=== PATIENT | male | born 1960 | race Caucasian/White ===

== ENCOUNTER 2019-06-02 11:49 | Emergency (ER) | payer SELFPAY ==
--- OUTSIDE RECORDS SUMMARY | 2019-06-02 11:52 | XMS REPORT | Summary of Care ---
:1960 Author Organization [facility] [place] Address [address] [place] [address]- Encounter HQ Encntr_yudith(FIN) [id number] Date(s): 10/26/17 - 10/26/17 [facility] [place] [address] [place] [address]- [phone] Discharge Disposition: Home or Self Care Attending Physician: Bonnie Walsh MD Vital Signs Most recent to oldest [Reference Range]: 1 Height 162.56 cm (10/26/17 9:25 AM) Blood Pressure [90-140/60-90 mmHg] 143/77 mmHg *HI* (10/26/17 9:25 AM) Weight 77.273 kg (10/26/17 9:25 AM) Body Mass Index 29.24 m2 (10/26/17 9:25 AM) Problem List Condition Effective Dates Status Health Status Informant Hyperlipidemia(Confirmed) Active Allergies, Adverse Reactions, Alerts Substance Reaction Severity Status NKDA Active Medications No data available for this section Results No data available for this section Immunizations No data available for this section Procedures Procedure Date Related Diagnosis Body Site Laparoscopic repair of hernia Social History Social History Type Response Smoking Status Former smoker; Exposed at work; Cigarette Smoking Last 365 Days No; Reg Smoking Cessation Counseling No Assessment and Plan No data available for this section
--- OUTSIDE RECORDS SUMMARY | 2019-06-02 11:52 | XMS REPORT | Continuity of Care Document ---
:1960 Author Organization [employer] Care Team Providers Name Role Phone [employer] Unavailable Unavailable Problems Problem Status Onset Classification Date Comments Source Date Reported Hyperlipidemia Active Problem 12/31/2018 [facility] Medications Medication Details Route Status Patient Ordering Order Source Instructions Provider Date Mupirocin 0.02 1 appl, No Longer MH MG/MG Topical TOP, BID, Active 018 Medical Ointment Apply to Group [Bactroban] affected area(s), X 7 day, # 22 gm, 0 Refill(s), Pharmacy: [facility] baclofen 20 mg 20 mg=1 Active MH oral tablet tab, PO, 018 Medical BID, PRN Group Spasms, # 60 tab, 0 Refill(s), Pharmacy: [facility] triamcinolone 80 mg, Inactive ACETONIDE 40 Route: IM, 018 Medical mg/mL injectable ONCE, Group suspension Dosing Weight 78.693, kg, Start date: 01/24/18 14:54:00 CDT, Stop date: 01/24/18 14:54:00 CDT rosuvastatin 5 5 mg=1 tab, Active MH mg oral tablet PO, 018 Medical Bedtime, # Group 30 tab, 7 Refill(s), Pharmacy: [facility] aspirin 81 mg 81 mg=1 Active MH tablet, enteric tab, PO, 017 Medical coated Daily, # 90 Group tab, 3 Refill(s) rosuvastatin 5 5 mg=1 tab, Active MH mg oral tablet PO, 017 Medical Bedtime, # Group 30 tab, 0 Refill(s) Allergies, Adverse Reactions, Alerts Substance Category Reaction Severity Reaction Status Date Comments Source type Reported menthol Assertion Drug Active skin rash MH topical<sup allergy Medical >1</sup> Group Immunizations No Data Provided for This Section Results No Data Provided for This Section Pathology Reports No Data Provided for This Section Diagnostic Reports No Data Provided for This Section Consultation Notes No Data Provided for This Section Discharge Summaries No Data Provided for This Section History and Physicals No Data Provided for This Section Vital Signs Vital Sign Value Date Comments Source Systolic (mm Hg) 154 06/13/2018 Medical Group Diastolic (mm Hg) 79 06/13/2018 Medical Group Heart Rate 60 06/13/2018 Medical Group Weight 78.807 06/13/2018 Medical Group BMI Calculated 29.82 06/13/2018 Medical Group Height 162.56 cm 06/13/2018 Medical Group Temperature Oral (F) 96.5 F 06/13/2018 Medical Group Weight 78.693 01/24/2018 Medical Group Systolic (mm Hg) 157 01/24/2018 Medical Group Diastolic (mm Hg) 80 01/24/2018 Medical Group Temperature Oral (F) 98.6 F 01/24/2018 Medical Group Heart Rate 69 01/24/2018 Medical Group Height 162.56 cm 10/26/2017 Medical Group Systolic (mm Hg) 143 10/26/2017 Medical Group Diastolic (mm Hg) 77 10/26/2017 Medical Group BMI Calculated 29.24 10/26/2017 Medical Group Weight 77.273 10/26/2017 Medical Group Systolic (mm Hg) 140 10/10/2017 Medical Group Diastolic (mm Hg) 82 10/10/2017 Medical Group Respitory Rate 17 10/10/2017 Medical Group Temperature Oral (F) 97.9 F 10/10/2017 Medical Group BMI Calculated 28.96 10/10/2017 Medical Group Weight 76.534 10/10/2017 Medical Group Heart Rate 80 10/10/2017 Medical Group Height 162.56 cm 10/10/2017 Medical Group Systolic (mm Hg) 164 10/10/2017 Medical Group Diastolic (mm Hg) 80 10/10/2017 Medical Group Encounters Location Location Encounter Encounter Reason Attending ADM DC Status Source Details Type Number For Provider Date Date Visit Outpatient [id number] ROXANNA 10/10 [facility] Outpatient [id number] Freddieecia 10/10 10/11 [facility] [place] Outpatient [id number] ABDULAZIZ 10/[address] [facility] ALENA [facility] Outpatient [id number] Jerecia 10/26 10/27 [facility] /2016 Medical ology Group Tariq [facility] Outside [id number] 12/01 12/03 [facility] /2017 Medical ology [employer] [facility] [place] Outpatient [id number] ART 01/24 [facility] Daryl [facility] Outpatient [id number] Art 01/24 01/25 Primary [facility] /2017 [facility] [place] Outpatient [id number] DOC 06/13 [facility] Outpatient [id number] Doc 06/13 06/14 Primary [place] /2017 [facility] [place] Procedures Procedure Code Date Perfomer Comments Source Colonoscopy [id number] 11/14/2016 Medical Group Laparoscopic repair [id number] Medical of hernia Group Assessment and Plan No Data Provided for This Section Plan of Care No Data Provided for This Section Social History Social History Date Source Social History TypeResponse 06/13/2018 Medical Group Smoking Status Former smoker; Exposed at work; Cigarette Smoking Last 365 Days No; Reg Smoking Cessation Counseling No entered on: 06/13/18 Family History No Data Provided for This Section Advance Directives No Data Provided for This Section Functional Status No Data Provided for This Section
--- OUTSIDE RECORDS SUMMARY | 2019-06-02 11:52 | XMS REPORT | Summary of Care ---
:1960 Author Organization [facility] Gastroenterology [place] Address [address] [address] Encounter HQ Encntr_alias(FIN) [id number] Date(s): 12/01/17 - 12/02/17 [facility] G[facility] [place] [address] [address] [phone] Vital Signs No data available for this section Problem List Condition Effective Dates Status Health Status Informant Hyperlipidemia(Confirmed) Active Allergies, Adverse Reactions, Alerts Substance Reaction Severity Status menthol topical1 Active NKDA Active 1skin rash Medications No data available for this section Results No data available for this section Immunizations No data available for this section Procedures Procedure Date Related Diagnosis Body Site Status Laparoscopic repair of hernia Completed Social History Social History Type Response Smoking Status Former smoker; Exposed at work; Cigarette Smoking Last 365 Days No; Reg Smoking Cessation Counseling No entered on: 01/24/18 Assessment and Plan No data available for this section
--- OUTSIDE RECORDS SUMMARY | 2019-06-02 11:52 | XMS REPORT | Summary of Care ---
:1960 Author Organization [facility] Address [address] [place] [address]- Encounter HQ [place](FIN) [id number] Date(s): 01/24/18 - 01/24/[address] [address] [phone] Discharge Disposition: Home or Self Care Attending Physician: Bernard Gaines MD Vital Signs Most recent to oldest [Reference Range]: 1 Temperature Oral [96.4-99.1 DegF] 98.6 DegF (01/24/18 2:40 PM) Blood Pressure [90-140/60-90 mmHg] 157/80 mmHg *HI* (01/24/18 2:40 PM) Peripheral Pulse Rate [60-100 bpm] 69 bpm (01/24/18 2:40 PM) Weight 78.693 kg (01/24/18 2:40 PM) Problem List Condition Effective Dates Status Health Status Informant Hyperlipidemia(Confirmed) Active Allergies, Adverse Reactions, Alerts Substance Reaction Severity Status menthol topical1 Active NKDA Active 1skin rash Medications rosuvastatin 5 mg oral tablet 5 mg=1 tab, PO, Bedtime, # 30 tab, 7 Refill(s), Pharmacy: [facility] Start Date: 01/24/18 Stop Date: 09/21/18 Status: Orderedtriamcinolone ACETONIDE 40 mg/mL injectable suspension 80 mg, Route: IM, ONCE, Dosing Weight 78.693, kg, Start date: 01/24/18 14:54:00 CDT, Stop date: 01/24/18 14:54:00 CDT Start Date: 01/24/18 Stop Date: 01/24/18 Status: Completed Results No data available for this section [...]
--- OUTSIDE RECORDS SUMMARY | 2019-06-02 11:52 | XMS REPORT | Summary of Care ---
:1960 Author Organization [facility] Address [address] [place] [address]- Encounter HQ Uriel_yudith(FIN) [id number] Date(s): 06/13/18 - 06/13/[address] [address] [phone] Discharge Disposition: Home or Self Care Attending Physician: Emiliana Benitez MSN, RN, SYSTEMS ADMINISTRATOR-C Vital Signs Most recent to oldest [Reference Range]: 1 Height 162.56 cm (06/13/18 7:04 AM) Temperature Oral [96.4-99.1 DegF] 96.5 DegF (06/13/18 7:04 AM) Blood Pressure [90-140/60-90 mmHg] 154/79 mmHg *HI* (06/13/18 7:04 AM) Peripheral Pulse Rate [60-100 bpm] 60 bpm (06/13/18 7:04 AM) Weight 78.807 kg (06/13/18 7:04 AM) Body Mass Index 29.82 m2 (06/13/18 7:04 AM) Problem List Condition Effective Dates Status Health Status Informant Hyperlipidemia(Confirmed) Active Allergies, Adverse Reactions, Alerts Substance Reaction Severity Status menthol topical1 Active NKDA Active 1skin rash Medications baclofen 20 mg oral tablet 20 mg=1 tab, PO, BID, PRN Spasms, # 60 tab, 0 Refill(s), Pharmacy: [facility] Start Date: 06/13/18 Status: OrderedBactroban 2% topical ointment 1 appl, TOP, BID, Apply to affected area(s), X 7 day, # 22 gm, 0 Refill(s), Pharmacy: [facility] Start Date: 06/13/18 Stop Date: 06/20/18 Status: Completed Results No data available for this section Immunizations No data available for this section Procedures Procedure Date Related Diagnosis Body Site Status Colonoscopy 2016 Completed Laparoscopic repair of hernia Completed Social History Social History Type Response Smoking Status Former smoker; Exposed at work; Cigarette Smoking Last 365 Days No; Reg Smoking Cessation Counseling No entered on: 06/13/18 Assessment and Plan No data available for this section
--- OUTSIDE RECORDS SUMMARY | 2019-06-02 11:52 | XMS REPORT | Summary of Care ---
:1960 Author Organization [facility] Address [address] [place] [address]- Encounter HQ Malloryr_yudith(FIN) [id number] Date(s): 10/10/17 - 10/10/[address] [address]- [phone] Discharge Disposition: Home or Self Care Attending Physician: Bonnie Walsh MD Vital Signs Most recent to oldest [Reference Range]: 1 2 Height 162.56 cm (10/10/17 7:37 AM) Temperature Oral [96.4-99.1 DegF] 97.9 DegF (10/10/17 7:37 AM) Blood Pressure [90-140/60-90 mmHg] 140/82 mmHg 164/80 mmHg (10/10/17 8:00 AM) *HI* (10/10/17 7:37 AM) Respiratory Rate [14-20 BRMIN] 17 BRMIN (10/10/17 7:37 AM) Peripheral Pulse Rate [60-100 bpm] 80 bpm (10/10/17 7:37 AM) Weight 76.534 kg (10/10/17 7:37 AM) Body Mass Index 28.96 m2 (10/10/17 7:37 AM) Problem List Condition Effective Dates Status Health Status Informant Hyperlipidemia(Confirmed) Active Allergies, Adverse Reactions, Alerts Substance Reaction Severity Status NKDA Active Medications aspirin 81 mg tablet, enteric coated 81 mg=1 tab, PO, Daily, # 90 tab, 3 Refill(s) Start Date: 10/10/17 Status: Orderedrosuvastatin 5 mg oral tablet 5 mg=1 tab, PO, Bedtime, # 30 tab, 0 Refill(s) Start Date: 10/10/17 Status: Ordered Results No data available for this section [...]
--- OUTSIDE RECORDS SUMMARY | 2019-06-02 11:53 | XMS REPORT ---
:1960 Author [facility] Address [address] [place] [address] [address] [place] [address] Care Team Providers Name Role Phone DR MARCO A SIMEON Unavailable Unavailable DR BRENDON WAKEFIELD Unavailable Unavailable Problems This patient has no known problems. Allergies, Adverse Reactions, Alerts This patient has no known allergies or adverse reactions. Medications This patient has no known medications. Encounters Start End Encounter Admission Attending Care Care Encounter Date/Time Date/Time Type Type Clinicians Facility Department ID 2017-09-14 2017-09-14 Outpatient EZIO REA CARDIO [id number] 11:37:00 23:59:00 MARCO A Results Test Description Test Time Test Comments Text Results Atomic Results Result Comments CARDIAC PROFILE 2017-08-22 11:56:00 Test Item Value Reference Range Comments TROPONIN I (test code=A84) 0.038 ng/mL 0.000-0.045 CKMB (test code=A49) 1.2 ng/mL <=3.6 CPK (test code=32A) 86 IU/L 39-308 LIPID [id number] 11:23:00 Test Item Value Reference Range Comments CHOLESTROL (test code=44A) 183 mg/dL 140-200 TRIGLYCERI (test code=42B) 293 mg/dL <=149 HDL (test code=83D) 31.0 mg/dL 40.0-60.0 LDL (test code=34B) 111 mg/dL <=99 CHL/HDL (test code=CHR) 5.9 0.0-3.4 CARDIAC [id number] 08:30:00 Test Item Value Reference Range Comments TROPONIN I (test code=A84) 0.041 ng/mL 0.000-0.045 CKMB (test code=A49) <1.0 ng/mL <=3.6 CPK (test code=32A) 89 IU/L 39-308 CBC (INCLUDES AUTOMATED DIFFERENTIAL)2017-08-22 06:53:00 Test Item Value Reference Range Comments WBC (test code=WBC) 7.3 10\S\3/uL 4.5-11.0 RBC (test code=RBC) 4.78 10\S\6/uL 4.20-5.60 HGB (test code=HBG) 14.4 g/dL 14.0-18.0 HCT (test code=HCT) 41.6 % 35.0-46.0 MCV (test code=MCV) 87.0 fL 80.0-94.0 MCH (test code=MCH) 30.1 pg 27.0-31.0 MCHC (test code=MCHC) 34.6 g/dL 32.0-36.0 RDW (test code=RDW) 13.0 % 11.5-14.5 PLT (test code=PLT) 189 10\S\3/uL 130-400 MPV (test code=MPV) 9.4 fL 9.4-12.4 NEUTROP # (test code=NE#) 3.2 10\S\3/uL 2.0-8.0 LYMPH # (test code=LY#) 2.8 10\S\3/uL 1.2-4.0 MONOCYTE # (test code=MO#) 0.5 10\S\3/uL 0.0-1.1 EOSINOPH # (test code=EO#) 0.6 10\S\3/uL 0.0-0.7 BASOPHIL # (test code=BA#) 0.1 10\S\3/uL 0.0-0.3 IG # (test code=IG#) 0.02 10\S\3/uL 0.00-0.06 NRBC # (test code=NRBC#) 0.00 10\S\3/uL 0.00-0.01 NEUTROPH % (test code=NE%) 44.4 % 35.0-73.0 LYMPH % (test code=LY%) 38.6 % 20.0-55.0 MONO % (test code=MO%) 7.4 % 2.5-10.0 EOSINOPH % (test code=EO%) 8.3 % 0.0-5.0 BASOPHIL % (test code=BA%) 1.0 % 0.0-2.0 IG % (test code=IG%) 0.3 % 0.0-0.8 NRBC% (test code=NRBC%) 0.0 % 0.0-0.2 MANDIFF (test code=MDIFF) NO NO RBC MORPH (test code=RBCMOR) NORMAL BASIC METABOLIC [id number] 06:43:00 Test Item Value Reference Range Comments GLUCOSE (test code=06D) 95 mg/dL 75-100 SODIUM (test code=01A) 142 mmol/L 136-145 POTASSIUM (test code=01B) 3.7 mmol/L 3.6-5.1 CHLORIDE (test code=04A) 107 mmol/L 98-107 CO2 (test code=02A) 27 mmol/L 22-32 ANION GAP (test code=ANG) 11.7 mmol/L BUN (test code=05D) 20 mg/dL 7-18 CREATININE (test code=03E) 1.0 mg/dL 0.7-1.3 BUN/CREA (test code=BCR) 21 12-20 CALCIUM (test code=09D) 8.9 mg/dL 8.3-9.5 CT PE [id number] 22:53:31Exam: CT thorax PE protocol.Location: [id number] : CPTechnique: Enhanced spiral slices were taken fromthe apices of the lungs, through the upper abdomen utilizing a pulmonary embolism protocol. Multiplanarreformations were performed. 100cc of Omnipaque were used. 1 or more of thefollowing radiation dosereduction techniques was used: automated exposurecontrol, adjustment of mA and/or KV according to patient size, and/ orutilization of iterative reconstruction technique.Findings:No filling defects are seen in the main pulmonary arteries. The pulmonaryvasculature is normal. No pulmonary venous congestion or arterial hypertensionis seen.The lungs are clear. No infiltration or effusion is seen. No mass or nodule isseen.The mediastinum and the pulmonary kaleigh are normal. No lymphadenopathy ispresent. The heart size is normal.No pericardial effusion is seen.The visualized upper abdominal organs are unremarkable.Impression:1. Negative for pulmonary embolism.2. No acute disease.BRAIN NATRIURETIC [id number] 21:58:00 Test Item Value Reference Range Comments proBNP (test code=PBNP) 14 pg/mL 0-125 COMPREHENSIVE METABOLIC [id number] 21:53:00 Test Item Value Reference Range Comments GLUCOSE (test code=06D) 128 mg/dL 75-100 SODIUM (test code=01A) 141 mmol/L 136-145 POTASSIUM (test code=01B) 3.9 mmol/L 3.6-5.1 CHLORIDE (test code=04A) 106 mmol/L 98-107 CO2 (test code=02A) 27 mmol/L 22-32 ANION GAP (test code=ANG) 11.9 mmol/L BUN (test code=05D) 20 mg/dL 7-18 CREATININE (test code=03E) 1.0 mg/dL 0.7-1.3 BUN/CREA (test code=BCR) 19 12-20 CALCIUM (test code=09D) 8.2 mg/dL 8.3-9.5 BILI TOTAL (test code=11A) 0.3 mg/dL 0.2-1.0 PROTEIN (test code=07D) 6.9 g/dL 6.4-8.2 ALBUMIN (test code=08D) 3.3 g/dL 3.5-4.8 GLOBULIN (test code=GLB) 3.6 g/dL 1.5-3.8 ALB/GLOB (test code=AGRR) 0.9 1.0-2.6 ALK PHOS (test code=35A) 68 IU/L 42-121 AST (test code=30A) 19 IU/L <=42 ALT (test code=31A) 34 IU/L <=78 CARDIAC [id number] 21:53:00 Test Item Value Reference Range Comments TROPONIN I (test code=A84) 0.046 ng/mL 0.000-0.045 CKMB (test code=A49) 1.3 ng/mL <=3.6 CPK (test code=32A) 115 IU/L 39-308 PRO TIME AND [id number] 21:49:00 Test Item Value Reference Range Comments PT (test code=TT) 11.8 s 9.8-13.6 INR (test code=INR) 1.1 INRH (test code=INRH) SUGGESTED THERAPEUTIC RANGE FOR INR: 2.5 - 3.5 For Patients with Prosthetic Valves or Patients with recurrent Thromboembolic Events 2.0 - 3.0 For Most Other Applications PTT (test code=PTT) 29.1 s 20.2-38.0 PTTH (test code=PTTH) To monitor the effectiveness of heparin, we offer the Anti-Xa (Heparin Assay). It can be used for either unfractionated or LMW Heparin. Order Code is ANTI-XA [id number] 21:49:00 Test Item Value Reference Range Comments D-DIMER (test code=DDI) 458 ng/mL D-DU 0-234 D-DIMER COMMENT (test *Level to rule out DVT or PE: code=DDCOM) <235 ng/mL D-DU* XR CHEST 1 VIEW [id number] 21:36:09Exam: Chest portable erectLocation: [id number]: CPComparison: None.Findings:The lungs are clear. No infiltrate or effusion is seen. The pulmonaryvasculature is normal. The heart size is normal. The mediastinal silhouette isunremarkable. The bony thorax is intact.Impression: No acute disease.CBC (INCLUDES AUTOMATED DIFFERENTIAL)2017-08-21 21:34:00 Test Item Value Reference Range Comments WBC (test code=WBC) 8.8 10\S\3/uL 4.5-11.0 RBC (test code=RBC) 4.73 10\S\6/uL 4.20-5.60 HGB (test code=HBG) 14.8 g/dL 14.0-18.0 HCT (test code=HCT) 41.2 % 35.0-46.0 MCV (test code=MCV) 87.1 fL 80.0-94.0 MCH (test code=MCH) 31.3 pg 27.0-31.0 MCHC (test code=MCHC) 35.9 g/dL 32.0-36.0 RDW (test code=RDW) 12.9 % 11.5-14.5 PLT (test code=PLT) 211 10\S\3/uL 130-400 MPV (test code=MPV) 9.3 fL 9.4-12.4 NEUTROP # (test code=NE#) 4.4 10\S\3/uL 2.0-8.0 LYMPH # (test code=LY#) 3.1 10\S\3/uL 1.2-4.0 MONOCYTE # (test code=MO#) 0.5 10\S\3/uL 0.0-1.1 EOSINOPH # (test code=EO#) 0.6 10\S\3/uL 0.0-0.7 BASOPHIL # (test code=BA#) 0.1 10\S\3/uL 0.0-0.3 IG # (test code=IG#) 0.02 10\S\3/uL 0.00-0.06 NRBC # (test code=NRBC#) 0.00 10\S\3/uL 0.00-0.01 NEUTROPH % (test code=NE%) 50.3 % 35.0-73.0 LYMPH % (test code=LY%) 34.9 % 20.0-55.0 MONO % (test code=MO%) 6.2 % 2.5-10.0 EOSINOPH % (test code=EO%) 7.3 % 0.0-5.0 BASOPHIL % (test code=BA%) 1.1 % 0.0-2.0 IG % (test code=IG%) 0.2 % 0.0-0.8 NRBC% (test code=NRBC%) 0.0 % 0.0-0.2 MANDIFF (test code=MDIFF) NO NO
--- NOTE | 2019-06-02 13:21 | ER ---
Nurse's Notes [facility] Name: Hiram Schuster Age: 58 yrs Sex: Male : 1960 Arrival Date: 06/02/2019 Time: 11:50 Bed 12 Private MD: Unknown, Unknown Diagnosis: Cough;Acute laryngitis Presentation: 06/02 12:22 Presenting complaint: Patient states: "I have flu like symptoms since last Tuesday" aj1 Patient reports productive cough, sore. throat, fever, headache. 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 Transition of care: patient was not received from another setting of care. Onset of symptoms was May 2019. Risk Assessment: Do you want to hurt yourself or someone else? Patient reports no desire to harm self or others. Initial Sepsis Screen: Does the patient meet any 2 criteria? No. Patient's initial sepsis screen is negative. Does the patient have a suspected source of infection? Yes: Productive cough/pneumonia. Care prior to arrival: None. 12:22 Method Of Arrival: Ambulatory aj 12:22 Acuity: DESTINEE 4 aj1 Triage Assessment: 12:25 General: Appears in no apparent distress. uncomfortable, Behavior is calm, cooperative, aj1 appropriate for age. Pain: Complains of pain in forehead Pain currently is 3 out of 10 on a pain scale. EENT: Reports sore throat. Neuro: Level of Consciousness is awake, alert, obeys commands. Cardiovascular: Patient's skin is warm and dry. Respiratory: Reports cough that is productive, Airway is patent Respiratory effort is even, unlabored, Respiratory pattern is regular, symmetrical. Historical: - Allergies: 12:25 menthol; aj1 - Home Meds: 12:25 None [Active]; aj1 - PMHx: 12:25 None; aj1 - PSHx: 12:25 None; aj1 - Immunization history:: Flu vaccine is not up to date. - Social history:: Smoking status: Patient/guardian denies using tobacco. - Ebola Screening: : Patient denies travel to an Ebola-affected area in the 21 days before illness onset. Screenin:40 Abuse screen: Denies threats or abuse. Denies injuries from another. Nutritional hb screening: No deficits noted. Tuberculosis screening: No symptoms or risk factors identified. Fall Risk None identified. Assessment: 12:40 General: Appears in no apparent distress. Behavior is calm, cooperative. Pain: Denies hb pain. Neuro: Level of Consciousness is awake, alert, obeys commands, Oriented to person, place, time, situation. Cardiovascular: Capillary refill < 3 seconds Patient's skin is warm and dry. Respiratory: Reports cough that is non-productive, Airway is patent Respiratory effort is even, unlabored, Respiratory pattern is regular, symmetrical, Breath sounds are clear bilaterally. GI: No signs and/or symptoms were reported involving the gastrointestinal system. : No signs and/or symptoms were reported regarding the genitourinary system. EENT: Throat is clear. Derm: Skin is intact, is healthy with good turgor, Skin is pink, warm \\T\\ dry. Musculoskeletal: No signs and/or symptoms reported regarding the musculoskeletal system. 13:30 Reassessment: Patient appears in no apparent distress at this time. Patient and/or hb family updated on plan of care and expected duration. Pain level reassessed. Patient is alert, oriented x 3, equal unlabored respirations, skin warm/dry/pink. Vital Signs: 12:25 BP 150 / 79; Pulse 97; Resp 18; Temp 97.6; Pulse Ox 97% on R/A; Weight 72.12 kg (R); aj1 Height 5 ft. 3 in. (160.02 cm) (R); 12:25 Body Mass Index 28.17 (72.12 kg, 160.02 cm) aj1 ED Course: 11:50 Patient arrived in ED. ag5 11:51 Unknown, Unknown is Private Physician. ag5 11:58 Ce Davidson FNP-C [facility]. kb 11:58 Babak Boo MD is Attending Physician. kb 12:24 Triage completed. aj1 12:25 Arm band placed on Patient placed in waiting room, Patient notified of wait time. aj1 12:40 Patient has correct armband on for positive identification. Call light in reach. hb 12:52 XRAY Chest Pa And Lat (2 Views) In Process Unspecified. EDMS 13:40 No provider procedures requiring assistance completed. Patient did not have IV access hb during this emergency room visit. Administered Medications: No medications were administered Outcome: 13:21 Discharge ordered by MD. kb 13:40 Discharged to home ambulatory, with significant other. hb 13:40 Condition: stable 13:40 Discharge instructions given to patient, significant other, Instructed on discharge instructions, follow up and referral plans. medication usage, Demonstrated understanding of instructions, follow-up care, medications, Prescriptions given X 1. 13:52 Patient left the ED. Signatures: Dispatcher [employer] EDMS Ce Davidson, PHOTOCOPIER TECHNICIAN-C FLORY-Alberta Guardado RN RN aj Maren Tobin RN RN Manjeet Berkowitz ag5 Corrections: (The following items were deleted from the chart) 12:27 12:22 Presenting complaint: Patient states: "I have flu like symptoms since last aj1 Tuesday" Patient reports productive cough, sore. throat, fever, headache. aj1
--- NOTE | 2019-06-02 13:22 | EDPHYS ---
Physician Documentation [facility] Name: Hiram Schuster Age: 58 yrs Sex: Male : 1960 Arrival Date: 06/02/2019 Time: 11:50 Bed 12 Private MD: Unknown, Unknown ED Physician Babak Boo HPI: 06/02 13:26 This 58 yrs old Male presents to ER via Ambulatory with complaints of Sore Throat, kb Cough, Headache. 13:26 The patient has not experienced similar symptoms in the past. The patient has not kb recently seen a physician. 13:26 The patient or guardian reports cough, that is intermittent, described as moderate, kb with no sputum. Onset: The symptoms/episode began/occurred 7 day(s) ago. Severity of symptoms: At their worst the symptoms were moderate, in the emergency department the symptoms are unchanged. Modifying factors: The symptoms are alleviated by nothing, the symptoms are aggravated by nothing. Associated signs and symptoms: Pertinent positives: sore throat, Pertinent negatives: chest pain, diarrhea, ear ache, fever, nausea, rhinorrhea, vomiting. Pt reports he was working with some paint last Tuesday and has had a cough since then. Reports he woke up this morning and his voice was gone so he came in. . Historical: - Allergies: 12:25 menthol; aj1 - Home Meds: 12:25 None [Active]; aj1 - PMHx: 12:25 None; aj1 - PSHx: 12:25 None; aj1 - Immunization history:: Flu vaccine is not up to date. - Social history:: Smoking status: Patient/guardian denies using tobacco. - Ebola Screening: : Patient denies travel to an Ebola-affected area in the 21 days before illness onset. ROS: 13:24 Constitutional: Negative for fever, chills, and weight loss, Neck: Negative for injury, kb pain, and swelling, Cardiovascular: Negative for chest pain, palpitations, and edema, Abdomen/GI: Negative for abdominal pain, nausea, vomiting, diarrhea, and constipation, Back: Negative for injury and pain, : Negative for injury, bleeding, discharge, and swelling, MS/Extremity: Negative for injury and deformity, Skin: Negative for injury, rash, and discoloration, Neuro: Negative for headache, weakness, numbness, tingling, and seizure. 13:24 ENT: Positive for hoarseness, sore throat. 13:24 Respiratory: Positive for cough, Negative for dyspnea on exertion, hemoptysis, orthopnea, pleurisy, shortness of breath, sputum production, wheezing. Exam: 13:24 Constitutional: This is a well developed, well nourished patient who is awake, alert, kb and in no acute distress. Head/Face: Normocephalic, atraumatic. ENT: Nares patent. No nasal discharge, no septal abnormalities noted. Tympanic membranes are normal and external auditory canals are clear. Oropharynx with no redness, swelling, or masses, exudates, or evidence of obstruction, uvula midline. Mucous membranes moist. Neck: Trachea midline, no thyromegaly or masses palpated, and no cervical lymphadenopathy. Supple, full range of motion without nuchal rigidity, or vertebral point tenderness. No Meningismus. Chest/axilla: Normal chest wall appearance and motion. Nontender with no deformity. No lesions are appreciated. Cardiovascular: Regular rate and rhythm with a normal S1 and S2. No gallops, murmurs, or rubs. Normal PMI, no JVD. No pulse deficits. Respiratory: Lungs have equal breath sounds bilaterally, clear to auscultation and percussion. No rales, rhonchi or wheezes noted. No increased work of breathing, no retractions or nasal flaring. Abdomen/GI: Soft, non-tender, with normal bowel sounds. No distension or tympany. No guarding or rebound. No evidence of tenderness throughout. Skin: Warm, dry with normal turgor. Normal color with no rashes, no lesions, and no evidence of cellulitis. MS/ Extremity: Pulses equal, no cyanosis. Neurovascular intact. Full, normal range of motion. Neuro: Awake and alert, GCS 15, oriented to person, place, time, and situation. Cranial nerves II-XII grossly intact. Motor strength 5/5 in all extremities. Sensory grossly intact. Cerebellar exam normal. Normal gait. Vital Signs: 12:25 BP 150 / 79; Pulse 97; Resp 18; Temp 97.6; Pulse Ox 97% on R/A; Weight 72.12 kg (R); aj1 Height 5 ft. 3 in. (160.02 cm) (R); 12:25 Body Mass Index 28.17 (72.12 kg, 160.02 cm) [facility] MDM: 12:34 Patient medically screened. kb 13:24 Data reviewed: vital signs, nurses notes. Data interpreted: Pulse oximetry: on room air kb is 97 %. Interpretation: normal. Counseling: I had a detailed discussion with the patient and/or guardian regarding: the historical points, exam findings, and any diagnostic results supporting the discharge/admit diagnosis, lab results, radiology results, the need for outpatient follow up, a family practitioner, to return to the emergency department if symptoms worsen or persist or if there are any questions or concerns that arise at home. 06/02 12:26 Order name: Flu; Complete Time: 12:57 [facility] 06/02 12:26 Order name: Strep; Complete Time: 12:53 [facility] 06/02 12:26 Order name: XRAY Chest Pa And Lat (2 Views) [facility] 06/02 12:48 Order name: Throat Culture EDMS Administered Medications: No medications were administered Disposition: 18:18 Co-signature as Attending Physician, Babak Boo MD. Disposition: 06/02/19 13:21 Discharged to Home. Impression: Cough, Acute laryngitis. - Condition is Stable. - Discharge Instructions: Cough, Adult, [id number], Laryngitis, [id number]. - Prescriptions for Tessalon Perles 100 mg Oral Capsule - take 1 capsule by ORAL route every 8 hours As needed; 15 capsule. - Medication Reconciliation Form, Thank You Letter, Antibiotic Education, Prescription Opioid Use form. - Follow up: Emergency Department; When: As needed; Reason: Worsening of condition. Follow up: Private Physician; When: 2 - 3 days; Reason: Recheck today's complaints, Continuance of care, Re-evaluation by your physician. Signatures: Dispatcher [employer] EDMS Ce Davidson FNP-C FNP-Alberta Guardado RN RN aj1 Maren Tobin RN RN Babak Boo MD MD Corrections: (The following items were deleted from the chart) 13:52 13:21 06/02/2019 13:21 Discharged to Home. Impression: Cough; Acute laryngitis. hb Condition is Stable. Forms are Medication Reconciliation Form, Thank You Letter, Antibiotic Education, Prescription Opioid Use. Follow up: Emergency Department; When: As needed; Reason: Worsening of condition. Follow up: Private Physician; When: 2 - 3 days; Reason: Recheck today's complaints, Continuance of care, Re-evaluation by your physician. kb
--- NOTE | 2019-06-02 14:27 | RAD REPORT ---
EXAM DESCRIPTION: Kayley Parikh (2 Views)06/02/2019 12:52 pm CLINICAL HISTORY: Cough COMPARISON: None FINDINGS: The lungs appear clear of acute infiltrate. The heart is normal size Aorta is tortuous/ectatic IMPRESSION: No acute abnormalities displayed
== END 2019-06-02 13:52 | disposition home or self-care (01) ==
LOC: ER 11:49
DX: J04.0 Acute laryngitis (principal); Z91.048 Other nonmedicinal substance allergy status
CPT/HCPCS: 71046; 87070; 87081; 87804; 99283

== ENCOUNTER 2023-08-09 13:10 | Inpatient (IN) | payer BC, MEDICARE ==
--- OUTSIDE RECORDS SUMMARY | 2023-08-09 13:15 | XMS REPORT | Continuity of Care Document ---
:1960 Author Organization [facility] t Address [address] [place] [address] Care Team Providers Name Role Phone Fadia Maicas Attending Clinician Unavailable Emiliana Benitez Attending Clinician Bernard Gaines Attending Clinician Bonnie Walsh Attending Clinician DR MARCO A SIMEON Attending Clinician Unavailable DR BRENDON WAKEFIELD Attending Clinician Unavailable DR MARCO A SIMEON Admitting Clinician Unavailable DR BRENDON WAKEFIELD Admitting Clinician Unavailable Problems Condition Condition Condition Status Onset Resolution Last Treating Co mments Source Name Details Category Date Date Treatment Clinician Date Hyperlipid Hyperlipi Problem Active 2018-12-31 Memoria emia demia 15:33:59 l (disorder) (disorder) David madison Active Problem 12/31/2018 [facility] [id number] Gastroesop Problem Co mmon hageal Spirit reflux - [facility] disease [facility] esophagiti [facility] [place] [id number] Mixed Problem Common hyperlipid Spirit emia - [facility] [id number] Statin Problem Common intoleranc Spirit e - [facility] [id number] Other Problem Common obesity Spirit due to - [facility] excess [facility] [id number] Body mass Problem Com mon index Spirit [BMI] - [facility] 30.0-30.9, [facility] Allergies, Adverse Reactions, Alerts Allergy Allergy Status Severity Reaction(s) Onset Inactive Treating Comm ents Source Name Type Date Date Clinician menthol menthol Active Memoria topical< topical< l sup>1</s sup>1</s Wong n up> up> [id number] Drug Active rash Common allergy [facility] Substan Substan Active severe Common ce with ce with myalgias [facility] 3-hydrox 3-hydrox - [facility] y-3-meth y-3-meth [facility]-coenz [facility] reductas reductas e e inhibito inhibito r r mechanis mechanis m of m of action action (substan (substan ce) ce) gemfibro gemfibro Active myalgias Comm on zil zil [facility] Social History Social Habit Start Date Stop Date Quantity Comments Source History of Tobacco Use Co mmon [facility] Sex Assigned At Com mon [facility] Smoking Status Start Date Stop Date Source Never Smoker Common [facility] Social History 2018-06-13 12:06:11 2018-06-13 12:06:11 [facility] Medications Ordered Filled Start Stop Current Ordering Indication Dosage Frequency Signature Comments Components Source Medication Medication Date Date Medication? Clinician (SIG) Name Name Vini Randolphti No 1{table QD Atorvastat n Calcium n Calcium 9-26 t} in Calcium 40 MG 40 MG 00:00: 40 MG 00 Atorvastati Atorjocelyntati No 1{table QD Atorvastat n Calcium n Calcium 9-26 t} in Calcium 40 MG 40 MG 00:00: 40 MG 00 Atorvastati Atorvastati No 1{table QD Atorvastat n Calcium n Calcium 9-26 t} in Calcium 40 MG 40 MG 00:00: 40 MG 00 Atorvastati Atorvastati No 1{table QD Atorvastat n Calcium n Calcium 9-26 t} in Calcium 40 MG 40 MG 00:00: 40 MG 00 Omeprazole Omeprazole No QD Omeprazole 40 MG 40 MG 8-24 40 MG 00:00: 00 Omeprazole Omeprazole No QD Omeprazole 40 MG 40 MG 8-24 40 MG 00:00: 00 Mupirocin No 1 appl, Memor ia 0.02 MG/MG 06-13 TOP, BID, l Topical 12:17: Apply to Wong n Ointment 00 affected [Bactroban] area(s), X 7 day, # 22 gm, 0 Refill(s), Pharmacy: [facility] 482 baclofen 20 Yes 20 mg = 1 M emoria mg oral - tab, PO, l tablet 12:17: BID, PRN Daryl 00 Spasms, # 60 tab, 0 Refill(s), Pharmacy: [facility] 482 triamcinolo No 80 mg, Jeffery teri ne 01-24 Route: IM, l ACETONIDE 19:54: ONCE, Daryl 40 mg/mL 00 Dosing injectable Weight suspension 78.693, kg, Start date: 01/24/18 14:54:00 CDT, Stop date: 01/24/18 14:54:00 CDT rosuvastati Yes 5 mg = 1 Me moria n 5 mg oral 3-13 tab, PO, l tablet 19:53: Bedtime, # Jade nn 00 30 tab, 7 Refill(s), Pharmacy: [facility] 482 aspirin 81 2016-11 Yes 81 mg = 1 Me moria mg tablet, 1-27 tab, PO, l enteric 13:38: Daily, # Wong n coated 00 90 tab, 3 Refill(s) rosuvastati 2016-11 Yes 5 mg = 1 Me moria n 5 mg oral 1-27 tab, PO, l tablet 13:38: Bedtime, # Jade nn 00 30 tab, 0 Refill(s) Omeprazole Omeprazole No QD Omeprazole 40 MG 40 MG 40 MG Tessa-Seltze Tessa-Seltze No Tessa-Seltz r Antacid r Antacid er Antacid Gemfibrozil Gemfibrozil No BID Gemfibrozi 600 MG 600 MG l 600 MG Tessa-Seltze Tessa-Seltze No Tessa-Seltz r Antacid r Antacid er Antacid Omeprazole Omeprazole No QD Omeprazole 40 MG 40 MG 40 MG Tessa-Seltze Tessa-Seltze No Tessa-Seltz r Antacid r Antacid er Antacid Tessa-Seltze Tessa-Seltze No Tessa-Seltz r Antacid r Antacid er Antacid Omeprazole Omeprazole No QD Omeprazole 40 MG 40 MG 40 MG Tessa-Seltze Tessa-Seltze No Tessa-Seltz r Antacid r Antacid er Antacid Gemfibrozil Gemfibrozil No BID Gemfibrozi 600 MG 600 MG l 600 MG Tessa-Seltze Tessa-Seltze No Tessa-Seltz r Antacid r Antacid er Antacid Omeprazole Omeprazole No QD Omeprazole 40 MG 40 MG 40 MG Tessa-Seltze Tessa-Seltze No Tessa-Seltz r Antacid r Antacid er Antacid Omeprazole Omeprazole No QD Omeprazole 40 MG 40 MG 40 MG Vital Signs Vital Name Observation Time Observation Value Comments Source height 2022-11-09 09:40:00 63.5 [in_i] [facility] weight 2022-11-09 09:40:00 172.6 [lb_av] [facility] temperature 2022-11-09 09:40:00 98.1 [degF] [facility] bmi 2022-11-09 09:40:00 30.09 kg/m2 [facility] oximetry 2022-11-09 09:40:00 97 % [facility] respiratory rate 2022-11-09 09:40:00 17 /min Comm on [facility] blood pressure 2022-11-09 09:40:00 130 mm[Hg] Common [facility] - systolic [facility] blood pressure 2022-11-09 09:40:00 78 mm[Hg] Common [facility] - diastolic [facility] height 2022-08-09 10:20:00 63.5 [in_i] Common [facility] weight 2022-08-09 10:20:00 172 [lb_av] [facility] temperature 2022-08-09 10:20:00 97.7 [degF] Common [facility] bmi 2022-08-09 10:20:00 29.99 kg/m2 Common [facility] oximetry 2022-08-09 10:20:00 97 % [facility] respiratory rate 2022-08-09 10:20:00 16 /min Comm on [facility] blood pressure 2022-08-09 10:20:00 138 mm[Hg] Common [facility] - systolic [facility] blood pressure 2022-08-09 10:20:00 84 mm[Hg] Common [facility] - diastolic [facility] height 2022-07-07 11:00:00 Common [facility] weight 2022-07-07 11:00:00 169.6 [lb_av] [facility] temperature 2022-07-07 11:00:00 97.1 [degF] Common [facility] bmi 2022-07-07 11:00:00 29.57 kg/m2 Common [facility] oximetry 2022-07-07 11:00:00 98 % Common [facility] respiratory rate 2022-07-07 11:00:00 16 /min Comm on [facility] blood pressure 2022-07-07 11:00:00 138 mm[Hg] Common [facility] - systolic [facility] blood pressure 2022-07-07 11:00:00 71 mm[Hg] Common [facility] - diastolic [facility] Systolic (mm Hg) 2018-06-13 12:04:00 Jeffery Brito Diastolic (mm Hg) 2018-06-13 12:04:00 Theresa Brito Heart Rate 2018-06-13 12:04:00 [facility] Weight 2018-06-13 12:04:00 [facility] BMI Calculated 2018-06-13 12:04:00 Prashant Lopez Height 2018-06-13 12:04:00 162.56 cm [facility] Temperature Oral (F) 2018-06-13 12:04:00 96.5 F [facility] Weight 2018-01-24 19:40:00 [facility] Systolic (mm Hg) 2018-01-24 19:40:00 Jeffery rial [facility] Diastolic (mm Hg) 2018-01-24 19:40:00 Mem [facility] Temperature Oral (F) 2018-01-24 19:40:00 98.6 F [facility] Heart Rate 2018-01-24 19:40:00 [facility] Height 2017-10-26 15:25:00 162.56 cm [facility] Systolic (mm Hg) 2017-10-26 15:25:00 Jeffery rial Daryl Diastolic (mm Hg) 2017-10-26 15:25:00 Mem orial Daryl BMI Calculated 2017-10-26 15:25:00 [facility] Weight 2017-10-26 15:25:00 [facility] Systolic (mm Hg) 2017-10-10 14:00:00 Jeffery rial Daryl Diastolic (mm Hg) 2017-10-10 14:00:00 Mem orial Daryl Respitory Rate 2017-10-10 13:37:00 Memori al [facility] Temperature Oral (F) 2017-10-10 13:37:00 97.9 F [facility] BMI Calculated 2017-10-10 13:37:00 Memori al Daryl Weight 2017-10-10 13:37:00 [facility] Heart Rate 2017-10-10 13:37:00 [facility] Height 2017-10-10 13:37:00 162.56 cm [facility] Systolic (mm Hg) 2017-10-10 13:37:00 Jeffery rial [facility] Diastolic (mm Hg) 2017-10-10 13:37:00 Mem orial Daryl Procedures Procedure Date / Time Performed Performing Clinician [facility] e Colonoscopy 2016-11-14 00:00:00 [facility] Laparoscopic repair of [facility]aryl hernia Encounters Start End Encounter Admission Attending Care Care Encounter Source Date/Time Date/Time Type Type Clinicians Facility Department ID 2023-04-[address] [facility] [id number] Common 11:53:00 Fadia [id number] [facility] 2023-02-09 Outpatient Colleen [facility] [id number] Common 09:17:02 Fadia [id number] [facility] 2022-11-09 Outpatient Colleen, STRADHA STLMLC [id number] Common 07:42:00 Fadia [id number] [facility] 2022-08-06 Outpatient Colleen, STRADHA STLMLC [id number] Common 10:38:01 Fadia [id number] [facility] 2022-07-08 Outpatient Colleen, STRADHA STLMLC [id number] Common 10:06:04 Fadia [facility] 2022-07-07 Outpatient Colleen STRADHA STLMLC [id number] Common 10:50:06 Fadia [facility] 2022-11-09 2022-11-09 OFFICE STLMLC STLMLC [id number] Co mmon 00:00:00 00:00:00 VISIT EST Spir it PT LEVEL 3 [facility] 2022-08-25 2022-08-25 (TEL) STLMLC STLMLC [id number] Co mmon 00:00:00 00:00:00 [facility] 2022-08-09 2022-08-09 OFFICE STLMLC STLMLC [id number] Co mmon 00:00:00 00:00:00 VISIT EST Spir it PT LEVEL 3 [facility] 2022-07-27 2022-07-27 (TEL) STLMLC STLMLC [id number] Co mmon 00:00:00 00:00:00 [facility] 2022-07-07 2022-07-07 OFFICE STLMLC STLMLC [id number] Co mmon 00:00:00 00:00:00 VISIT NEW Spir it PT LEVEL 3 [facility] 2018-06-13 2018-06-14 Outpatient nullFlavo [facility] [id number] Memoria 12:00:00 04:59:59 r Primary 03 brielle Turner 2018-06-13 2018-06-13 Outpatient CORINA Benitez [id number] 07:00:00 23:59:59 Emiliana 03 2018-06-13 2018-06-13 Outpatient FAUSTINO HARMON [id number] Memoria 07:00:00 07:00:00 Rebeka Brito 2018-01-24 2018-01-25 [place] [id number] Memoria 20:10:00 04:59:59 r Primary 02 l India Turner 2018-01-24 2018-01-24 Outpatient Liana [facility] [id number] 15:10:00 23:59:59 Art L 02 2018-01-24 2018-01-24 Outpatient FAUSTINO HARMON [id number] Memoria 15:10:00 15:10:00 02 brielle Brito 2017-12-01 2017-12-03 Outside nullFlavo MG [id number] Memoria 21:53:00 05:59:59 Medical r Gastroenter 00 l Records olabbi Rodriguez 2017-12-01 2017-12-02 Outpatient [facility] [id number] 15:53:00 23:59:59 00 2017-10-26 2017-10-27 Outpatient nullFlavo [facility] [id number] Memoria 15:40:00 05:59:59 r Gastroenter 01 l ology Daryl Tariq 2017-10-26 2017-10-26 Outpatient Nico [facility] [id number] 09:40:00 23:59:59 Jerecia 01 Ana Laura 2017-10-26 2017-10-26 Outpatient FAUSTINO HARMON [id number] Memoria 09:40:00 09:40:00 01 brielle Brito 2017-10-10 2017-10-11 Outpatient nullFlavo [facility] [id number] Memoria 13:30:00 05:59:59 r Primary 00 brielle Turner 2017-10-10 2017-10-10 Outpatient Nico [facility] [id number] 07:30:00 23:59:59 Jerecia 00 Ana Laura 2017-10-10 2017-10-10 Outpatient DARLINIE IE [id number] Memoria 07:30:00 07:30:00 00 brielle Brito 2017-09-14 2017-09-14 Outpatient Carlos Eduardo [facility] CARDIO [id number] [place] 11:37:00 23:59:00 MARCO A [facility] Results Test Description Test Time Test Comments Results Result Comments Source CARDIAC PROFILE 2017-08-22 11:56:00 Test Item Value Reference Range Interpretation Comme nts TROPONIN I (test code = A84) 0.038 ng/mL 0.000-0.045 CKMB (test code = A49) 1.2 ng/mL <=3.6 CPK (test code = 32A) 86 IU/L 39-308 LIPID [id number] 11:23:00 Test Item Value Reference Range Interpretation Comments CHOLESTROL (test code = 44A) 183 mg/dL 140-200 TRIGLYCERI (test code = 42B) 293 mg/dL <=149 H HDL (test code = 83D) 31.0 mg/dL 40.0-60.0 L LDL (test code = 34B) 111 mg/dL <=99 H CHL/HDL (test code = CHR) 5.9 0.0-3.4 H CARDIAC [id number] 08:30:00 Test Item Value Reference Range Interpretation Comments TROPONIN I (test code = A84) 0.041 ng/mL 0.000-0.045 CKMB (test code = A49) <1.0 ng/mL <=3.6 CPK (test code = 32A) 89 IU/L 39-308 CBC (INCLUDES AUTOMATED DIFFERENTIAL)2017-08-22 06:53:00 Test Item Value Reference Range Interpretation Comments WBC (test code = WBC) 7.3 10\S\3/uL 4.5-11.0 RBC (test code = RBC) 4.78 10\S\6/uL 4.20-5.60 HGB (test code = HBG) 14.4 g/dL 14.0-18.0 HCT (test code = HCT) 41.6 % 35.0-46.0 MCV (test code = MCV) 87.0 fL 80.0-94.0 MCH (test code = MCH) 30.1 pg 27.0-31.0 MCHC (test code = MCHC) 34.6 g/dL 32.0-36.0 RDW (test code = RDW) 13.0 % 11.5-14.5 PLT (test code = PLT) 189 10\S\3/uL 130-400 MPV (test code = MPV) 9.4 fL 9.4-12.4 NEUTROP # (test code = NE#) 3.2 10\S\3/uL 2.0-8.0 LYMPH # (test code = LY#) 2.8 10\S\3/uL 1.2-4.0 MONOCYTE # (test code = MO#) 0.5 10\S\3/uL 0.0-1.1 EOSINOPH # (test code = EO#) 0.6 10\S\3/uL 0.0-0.7 BASOPHIL # (test code = BA#) 0.1 10\S\3/uL 0.0-0.3 IG # (test code = IG#) 0.02 10\S\3/uL 0.00-0.06 NRBC # (test code = NRBC#) 0.00 10\S\3/uL 0.00-0.01 NEUTROPH % (test code = NE%) 44.4 % 35.0-73.0 LYMPH % (test code = LY%) 38.6 % 20.0-55.0 MONO % (test code = MO%) 7.4 % 2.5-10.0 EOSINOPH % (test code = EO%) 8.3 % 0.0-5.0 H BASOPHIL % (test code = BA%) 1.0 % 0.0-2.0 IG % (test code = IG%) 0.3 % 0.0-0.8 NRBC% (test code = NRBC%) 0.0 % 0.0-0.2 MANDIFF (test code = MDIFF) NO NO RBC MORPH (test code = RBCMOR) NORMAL BASIC METABOLIC [id number] 06:43:00 Test Item Value Reference Range Interpretation Comments GLUCOSE (test code = 06D) 95 mg/dL 75-100 SODIUM (test code = 01A) 142 mmol/L 136-145 POTASSIUM (test code = 01B) 3.7 mmol/L 3.6-5.1 CHLORIDE (test code = 04A) 107 mmol/L 98-107 CO2 (test code = 02A) 27 mmol/L 22-32 ANION GAP (test code = ANG) 11.7 mmol/L BUN (test code = 05D) 20 mg/dL 7-18 H CREATININE (test code = 03E) 1.0 mg/dL 0.7-1.3 BUN/CREA (test code = BCR) 21 12-20 H CALCIUM (test code = 09D) 8.9 mg/dL 8.3-9.5 CT PE [id number] 22:53:31Exam: CT thorax PE protocol.Location: [id number]: CPTechnique: Enhanced spiral slices were taken fromthe apices of the lungs,through the upper abdomen utilizing a pulmonary embolism protocol. Multiplanarreformations were performed. 100cc of Omnipaque were used. 1 or more of thefollowing radiation dosereduction techniques was used: automated exposurecontrol, adjustment of mA and/or KV according to patient size, and/orutilization of iterative reconstruction technique.Findings:No filling defects are [...] for pulmonary embolism.2. No acute disease.BRAIN NATRIURETIC [id number] 21:58:00 Test Item Value Reference Range Interpretation Comments proBNP (test code = PBNP) 14 pg/mL 0-125 COMPREHENSIVE METABOLIC [id number] 21:53:00 Test Item Value Reference Range Interpretation Comments GLUCOSE (test code = 06D) 128 mg/dL 75-100 H SODIUM (test code = 01A) 141 mmol/L 136-145 POTASSIUM (test code = 01B) 3.9 mmol/L 3.6-5.1 CHLORIDE (test code = 04A) 106 mmol/L 98-107 CO2 (test code = 02A) 27 mmol/L 22-32 ANION GAP (test code = ANG) 11.9 mmol/L BUN (test code = 05D) 20 mg/dL 7-18 H CREATININE (test code = 03E) 1.0 mg/dL 0.7-1.3 BUN/CREA (test code = BCR) 19 12-20 CALCIUM (test code = 09D) 8.2 mg/dL 8.3-9.5 L BILI TOTAL (test code = 11A) 0.3 mg/dL 0.2-1.0 PROTEIN (test code = 07D) 6.9 g/dL 6.4-8.2 ALBUMIN (test code = 08D) 3.3 g/dL 3.5-4.8 L GLOBULIN (test code = GLB) 3.6 g/dL 1.5-3.8 ALB/GLOB (test code = AGRR) 0.9 1.0-2.6 L ALK PHOS (test code = 35A) 68 IU/L 42-121 AST (test code = 30A) 19 IU/L <=42 ALT (test code = 31A) 34 IU/L <=78 CARDIAC [id number] 21:53:00 Test Item Value Reference Range Interpretation Comments TROPONIN I (test code = A84) 0.046 ng/mL 0.000-0.045 H CKMB (test code = A49) 1.3 ng/mL <=3.6 CPK (test code = 32A) 115 IU/L 39-308 [id number] 21:49:00 Test Item Value Reference Range Interpretation Comments D-DIMER (test code = 458 ng/mL D-DU 0-234 H DDI) D-DIMER COMMENT (test *Level to rule out code = DDCOM) DVT or PE: <235 ng/mL D-DU* PRO TIME AND [id number] 21:49:00 Test Item Value Reference Range Interpretation Comments PT (test code = 11.8 s 9.8-13.6 TT) INR (test code = 1.1 INR) INRH (test code = SUGGESTED THERAPEUTIC INRH) RANGE FOR INR: 2.5 - 3.5 For Patients with Prosthetic Valves or Patients with recurrent Thromboembolic Events 2.0 - 3.0 For Most Other Applications PTT (test code = 29.1 s 20.2-38.0 PTT) PTTH (test code = To monitor the PTTH) effectiveness of heparin, we offer the Anti-Xa (Heparin Assay). It can be used for either unfractionated or LMW Heparin. Order Code is ANTI-XA XR CHEST 1 VIEW [id number] 21:36:09Exam: Chest portable erectLocation: [id number]: CPComparison: None.Findings:The lungs are clear. No infiltrate or effusion is seen. The pulmonaryvasculature is normal. The heart size is normal. The mediastinal silhouette isunremarkable. The bony thorax is intact.Impression:No acute disease.CBC (INCLUDES AUTOMATED DIFFERENTIAL) 2017-08-21 21:34:00 Test Item Value Reference Range Interpretation Comments WBC (test code = WBC) 8.8 10\S\3/uL 4.5-11.0 RBC (test code = RBC) 4.73 10\S\6/uL 4.20-5.60 HGB (test code = HBG) 14.8 g/dL 14.0-18.0 HCT (test code = HCT) 41.2 % 35.0-46.0 MCV (test code = MCV) 87.1 fL 80.0-94.0 MCH (test code = MCH) 31.3 pg 27.0-31.0 H MCHC (test code = MCHC) 35.9 g/dL 32.0-36.0 RDW (test code = RDW) 12.9 % 11.5-14.5 PLT (test code = PLT) 211 10\S\3/uL 130-400 MPV (test code = MPV) 9.3 fL 9.4-12.4 L NEUTROP # (test code = NE#) 4.4 10\S\3/uL 2.0-8.0 LYMPH # (test code = LY#) 3.1 10\S\3/uL 1.2-4.0 MONOCYTE # (test code = MO#) 0.5 10\S\3/uL 0.0-1.1 EOSINOPH # (test code = EO#) 0.6 10\S\3/uL 0.0-0.7 BASOPHIL # (test code = BA#) 0.1 10\S\3/uL 0.0-0.3 IG # (test code = IG#) 0.02 10\S\3/uL 0.00-0.06 NRBC # (test code = NRBC#) 0.00 10\S\3/uL 0.00-0.01 NEUTROPH % (test code = NE%) 50.3 % 35.0-73.0 LYMPH % (test code = LY%) 34.9 % 20.0-55.0 MONO % (test code = MO%) 6.2 % 2.5-10.0 EOSINOPH % (test code = EO%) 7.3 % 0.0-5.0 H BASOPHIL % (test code = BA%) 1.1 % 0.0-2.0 IG % (test code = IG%) 0.2 % 0.0-0.8 NRBC% (test code = NRBC%) 0.0 % 0.0-0.2 MANDIFF (test code = MDIFF) NO NO
[2023-08-09 13:49] LABS: Absolute Lymphocytes (CBC) 1.8 K/uL (0.7-4.9); Hematocrit 40.3 % (39.6-49.0); MCV 90.9 fL (80-100); MPV 7.5 fL (7.6-11.3); Platelets 217 thou/uL (152-406); RBC Red Blood Cell Count 4.43 M/uL (4.33-5.43)
[2023-08-09 13:57] LABS: Protime INR 1.03
[2023-08-09] MEDS ORDERED: NA CHLORIDE 0.9% 1,000 ML ONE (14:01)
[2023-08-09 14:10] LABS: ALT/SGPT 42 U/L (16-61); AST/SGOT 24 U/L (15-37); Albumin 3.8 g/dL (3.4-5.0); Alkaline Phosphatase 47 U/L (45-117); BUN Blood Urea Nitrogen 23 mg/dL (7-18); Bicarbonate 24 mEq/L (21-32); Bilirubin Total 0.2 mg/dL (0.2-1.0); Glomerular Filtration Rate 51 ml/min (=/>90); Glucose Level 111 mg/dL (74-106); NT PRO-BNP 37 pg/mL (<125); Potassium 3.6 mEq/L (3.5-5.1); Protein, Total 7.4 g/dL (6.4-8.2); Sodium Level 138 mEq/L (136-145)
[2023-08-09 14:13] LABS: Bilirubin Direct < 0.1 mg/dL (0-0.2); Bilirubin Indirect, Calculated ND mg/dL (0.2-0.8)
[2023-08-09 14:14] LABS: Troponin High Sensitivity 902.1 pg/mL (<58.9)
[2023-08-09] MEDS ORDERED: MORPHINE 4 MG/ML SYR ONE (14:51)
--- NOTE | 2023-08-09 14:55 | RAD REPORT ---
EXAM DESCRIPTION: RAD - Chest Single View - 08/09/2023 2:46 pm CLINICAL HISTORY: CHEST PAIN Chest pain. COMPARISON: Chest Pa And Lat (2 Views) dated 06/02/2019 FINDINGS: Portable technique limits examination quality. The lungs are grossly clear. The heart is normal in size. No displaced fractures. IMPRESSION: No acute intrathoracic process suspected.
[2023-08-09] MEDS ORDERED: ENOXAPARIN 80 MG/0.8 ML SQ ONE (16:38)
--- NOTE | 2023-08-09 16:46 | RAD REPORT ---
EXAM DESCRIPTION: CT - Chest For Pe Angio - 08/09/2023 4:38 pm CLINICAL HISTORY: Chest pain. CHEST PAIN COMPARISON: Chest Single View dated 08/09/2023 TECHNIQUE: CT angiogram of the pulmonary arteries was performed with MIP. All CT scans are performed using dose optimization technique as appropriate and may include automated exposure control or mA/KV adjustment according to patient size. FINDINGS: No evidence of pulmonary thromboembolism. No acute aortic finding demonstrated. There is evidence of aortic coarctation present. Mild interstitial prominence probably represents interstitial pulmonary edema. No significant pericardial or pleural fluid. No concerning bony finding. IMPRESSION: No evidence of pulmonary thromboembolism. Mild interstitial pulmonary edema suspected. Aortic coarctation suspected.
--- NOTE | 2023-08-09 17:26 | EDPHYS ---
Physician Documentation [facility] Name: Hiram Schuster Age: 62 yrs Sex: Male : 1960 Arrival Date: 08/09/2023 Time: 13:10 Bed 3 Private MD: ED Physician Betty Wade HPI: 08/09 13:21 This 62 yrs old Male presents to ER via EMS with complaints of Chest Pain, Low Back cp3 Pain, Heat Exposure. 13:21 The patient or guardian reports chest pain that is located primarily in the. Onset: cp3 suddenly. 16:20 The patient or guardian reports chest pain that is located primarily in the substernal cp3 area. Onset: suddenly. The pain radiates to Associated signs and symptoms:. The chest pain is described as sharp. Duration: The patient or guardian reports multiple episodes, that wax and wane. Severity of pain: At its worst the pain was severe in the emergency department the pain has improved. EMS care prior to arrival includes: aspirin. 16:57 Modifying factors: the symptoms are aggravated by exertion. The patient has not cp3 experienced similar symptoms in the past. Historical: - Allergies: 13:18 menthol; eh3 - PMHx: 13:18 Hypercholesterolemia; Hypertensive disorder; Gastroesophageal reflux disease; eh3 - Immunization history:: Adult Immunizations up to date. - Social history:: Smoking status: Patient denies any tobacco usage or history of. - Family history:: not pertinent. - Hospitalizations: : No recent hospitalization is reported. ROS: 13:21 Constitutional: Negative for fever, chills, and weight loss, Eyes: Negative for injury, cp3 pain, redness, and discharge, ENT: Negative for injury, pain, and discharge, Neck: Negative for injury, pain, and swelling, Respiratory: Negative for shortness of breath, cough, wheezing, and pleuritic chest pain, Abdomen/GI: Negative for abdominal pain, nausea, vomiting, diarrhea, and constipation, Back: Negative for injury and pain, : Negative for injury, bleeding, discharge, and swelling, MS/Extremity: Negative for injury and deformity, Skin: Negative for injury, rash, and discoloration, Neuro: Negative for headache, weakness, numbness, tingling, and seizure, Psych: Negative for depression, anxiety, suicide ideation, homicidal ideation, and hallucinations, Allergy/Immunology: Negative for hives, rash, and allergies, Endocrine: Negative for neck swelling, polydipsia, polyuria, polyphagia, and marked weight changes, Hematologic/Lymphatic: Negative for swollen nodes, abnormal bleeding, and unusual bruising, 13:21 Cardiovascular: Positive for chest pain, Exam: 13:21 Constitutional: This is a well developed, well nourished patient who is awake, alert, cp3 and in no acute distress. Head/Face: Normocephalic, atraumatic. Eyes: Pupils equal round and reactive to light, extra-ocular motions intact. Lids and lashes normal. Conjunctiva and sclera are non-icteric and not injected. Cornea within normal limits. Periorbital areas with no swelling, redness, or edema. ENT: Nares patent. No nasal discharge, no septal abnormalities noted. Tympanic membranes are normal and external auditory canals are clear. Oropharynx with no redness, swelling, or masses, exudates, or evidence of obstruction, uvula midline. Mucous membranes moist. Neck: Trachea midline, no thyromegaly or masses palpated, and no cervical lymphadenopathy. Supple, full range of motion without nuchal rigidity, or vertebral point tenderness. No Meningismus. Chest/axilla: Normal chest wall appearance and motion. Nontender with no deformity. No lesions are appreciated. Cardiovascular: Regular rate and rhythm with a normal S1 and S2. No gallops, murmurs, or rubs. Normal PMI, no JVD. No pulse deficits. Respiratory: Lungs have equal breath sounds bilaterally, clear to auscultation and percussion. No rales, rhonchi or wheezes noted. No increased work of breathing, no retractions or nasal flaring. Abdomen/GI: Soft, non-tender, with normal bowel sounds. No distension or tympany. No guarding or rebound. No evidence of tenderness throughout. Back: No spinal tenderness. No costovertebral tenderness. Full range of motion. Skin: Warm, dry with normal turgor. Normal color with no rashes, no lesions, and no evidence of cellulitis. Neuro: Awake and alert, GCS 15, oriented to person, place, time, and situation. Cranial nerves II-XII grossly intact. Motor strength 5/5 in all extremities. Sensory grossly intact. Cerebellar exam normal. Normal gait. Psych: Awake, alert, with orientation to person, place and time. Behavior, mood, and affect are within normal limits. 16:20 MS/ Extremity: Pulses equal, no cyanosis. Neurovascular intact. Full, normal range cp3 of motion. Vital Signs: 13:15 BP 144 / 77; Pulse 67; Resp 18; Temp 98.5(O); Pulse Ox 99% ; Weight 78.02 kg; Height 5 eh3 ft. 5 in. ; Pain 3/10; 14:35 BP 123 / 81; Pulse 61; Resp 18 S; Pulse Ox 98% ; aa5 15:00 BP 125 / 79; Pulse 59; Resp 20; Pulse Ox 99% on R/A; eh3 15:30 BP 129 / 75; Pulse 57; Resp 15; Pulse Ox 99% on R/A; eh3 16:00 BP 121 / 72; Pulse 58; Resp 20; Pulse Ox 98% on R/A; eh3 17:00 BP 143 / 93; Pulse 63; Resp 19; Pulse Ox 97% on R/A; eh3 18:00 BP 137 / 80; Pulse 66; Resp 17; Pulse Ox 98% on R/A; eh3 19:00 BP 139 / 96; Pulse 66; Resp 16; Pulse Ox 98% on R/A; eh3 13:15 Body Mass Index 28.62 (78.02 kg, 165.1 cm) 3 13:15 Pain Scale: Adult eh3 MDM: 13:23 Differential diagnosis: abnormal EKG, acute myocardial infarction, coronary artery cp3 disease congestive heart failure stable angina. HEART Score: History: Moderately Suspicious (1), ECG: Non specific repolarization disturbance / LBTB / PM (1), Age: > 45 and < 65 years (1), Risk Factors: 1 or 2 risk factors (1), Troponin: > or = 3 x Normal Limit (2). Data reviewed: vital signs, nurses notes, EMS record, lab test result(s), EKG, radiologic studies. 13:53 Patient medically screened. cp3 16:20 Consideration of Admission/Observation Patient was admitted/placed on observation. cp3 Escalation of care including admission/observation considered. I considered the following discharge prescriptions or medication management in the emergency department Medications were administered in the Emergency Department. See MAR. Independent interpretation of the following test(s) in the Emergency Department pvc monitor: rate is 64 beats/min, Rhythm is normal sinus rhythm, with no ectopy, Interpretation: normal rate, normal rhythm. Test considered but Not performed:. Historians other than the Patient: EMS: . Response to treatment: the patient's symptoms have markedly improved after treatment. ED course: ekg interpreted by me at 1312- normal sinus rhythm, rate 64 no evidence of acute mi. 16:57 HEART Score: History: Highly Suspicious (2), ECG: Non specific repolarization cp3 disturbance / LBTB / PM (1), Age: > 45 and < 65 years (1), Risk Factors: > or = 3 Risk factors for atherosclerotic disease (2), Troponin: > or = 3 x Normal Limit (2), Total Score = 8. The patient was given aspirin in the Emergency Department. Independent interpretation of the following test(s) in the Emergency Department X-Ray: My interpretation is cxr interpreted by me at 1444- mild pulmonary edema, no pna, heart size normal. 17:12 Management of patient was discussed with the following: Lounge Car Attendant: Dr. santiago- 3 cardiology - npo at midnight. plan to probably cath tomorrow, lovenoxx or heparin for anticoagulation. ED course: admit to inpatient. 17:49 ED course: patient accepted by dr pacheco. cp3 08/09 13:21 Order name: Basic Metabolic Panel; Complete Time: 14:22 cp3 08/09 13:21 Order name: CBC with Diff; Complete Time: 14:02 cp3 08/09 13:21 Order name: D-Dimer; Complete Time: 14:02 cp3 08/09 13:21 Order name: LFT's; Complete Time: 14:22 cp3 08/09 13:21 Order name: Magnesium; Complete Time: 14:22 cp3 08/09 13:21 Order name: NT PRO-BNP; Complete Time: 14:22 cp3 08/09 13:21 Order name: PT-INR; Complete Time: 14:02 cp3 08/09 13:21 Order name: Troponin HS; Complete Time: 14:22 cp3 08/09 13:21 Order name: XRAY Chest (1 view); Complete Time: 15:50 cp3 08/09 16:20 Order name: CT Chest For PE Angio; Complete Time: 16:55 cp3 08/09 16:25 Order name: Echo w/ Doppler 3 08/09 13:21 Order name: EKG; Complete Time: 13:21 3 08/09 13:21 Order name: Cardiac monitoring; Complete Time: 13:33 3 08/09 13:21 Order name: EKG - Nurse/Tech; Complete Time: 13:33 3 08/09 13:21 Order name: IV Saline Lock; Complete Time: 13:33 3 08/09 13:21 Order name: Labs collected and sent; Complete Time: 13:47 3 08/09 13:21 Order name: O2 Per Protocol; Complete Time: 13:33 3 08/09 13:21 Order name: O2 Sat Monitoring; Complete Time: 13:33 cp3 Administered Medications: 13:49 Not Given (Duplicate Order): aspirinchewable tablet 324 mg PO once; 81 mg tablets x 4 eh3 13:49 Drug: NS 0.9% IV 1000 ml IV at 1 bolus Per protocol; 1000 mL bolus Route: IV; Rate: 1 eh3 bolus; Site: right antecubital; 15:00 Follow up: IV Status: Completed infusion; IV Intake: 1000ml 3 14:35 Drug: morphine IVP or IV 4 mg IVP once over 4 mins Route: IVP; Infused Over: 4 mins; aa5 Site: right antecubital; 14:48 Follow up: Response: No adverse reaction aa5 17:11 Drug: Enoxaparin Sub-Q 1 mg/kg Sub-Q once Route: Sub-Q; Site: right lower abdomen; aa5 18:00 Follow up: Response: No adverse reaction eh3 Disposition: 18:00 Critical Care:. cp3 Disposition Summary: 08/09/23 17:25 Hospitalization Ordered Notes: Hospitalization Status: Inpatient Admission cp3 Location: Telemetry/MedSurg (Inpatient) cp3 Condition: Stable cp3 Problem: new cp3 Symptoms: have improved cp3 Bed/Room Type: Standard cp3 Provider: Moris Pacheco(08/09/23 17:49) cp3 Room Assignment: [facility](08/09/23 19:44) mw Diagnosis - Chest Pain cp3 - NSTEMI cp3 - History of Hypertension cp3 - history of High Cholesterol cp3 Forms: - Medication Reconciliation Form cp3 - SBAR form cp3 - Leadership Thank You Letter cp3 Critical care time excluding procedures: 18:00 Critical care time: Bedside Care: 65 minutes. Total time: 65 minutes 3 Signatures: Dispatcher [employer] Angeline Orozco RN RN Betty Bhardwaj MD MD 3 Cindy Cotter RN RN 5 Tresa Veras RN RN 3 Corrections: (The following items were deleted from the chart) 13:19 13:18 Allergies: No Known Allergies; [place] [id number] 17:49 17:25 Charles Rai [facility]3 19:44 17:25 [email or web address]
--- NOTE | 2023-08-09 17:26 | ER ---
Nurse's Notes [facility] Name: Hiram Schuster Age: 62 yrs Sex: Male : 1960 Arrival Date: 08/09/2023 Time: 13:10 Bed 3 Private MD: Diagnosis: Chest Pain;NSTEMI;History of Hypertension;history of High Cholesterol Presentation: 08/09 13:15 Chief complaint: EMS states: pt walked into EMS station c/o chest pain, diaphoresis. 3 EMS reports BP of 160/110 on scene, ST depression in EKG, gave 4 chewable aspirin and pt stated chest pain resolved after 2nd dose of nitroglycerin. BGL 110. Pt states he was outside working in the heat when chest pain started and now c/o low back pain. Coronavirus screen: Vaccine status: Patient reports being unvaccinated. Ebola Screen: No symptoms or risks identified at this time. Initial Sepsis Screen: Does the patient meet any 2 criteria? No. Patient's initial sepsis screen is negative. Does the patient have a suspected source of infection? No. Patient's initial sepsis screen is negative. Risk Assessment: Do you want to hurt yourself or someone else? Patient reports no desire to harm self or others. Onset of symptoms was August 09, 2023. 13:15 Method Of Arrival: EMS: [place] [id number] 13:15 Acuity: [place] 3 eh3 Triage Assessment: 13:18 General: Appears in no apparent distress. uncomfortable, Behavior is calm, cooperative, eh3 appropriate for age. Pain: Complains of pain in low back area. Neuro: Level of Consciousness is awake, alert, obeys commands, Oriented to person, place, time, situation. Cardiovascular: Capillary refill < 3 seconds Patient's skin is warm and dry. Respiratory: Airway is patent Respiratory effort is even, unlabored, Respiratory pattern is regular, symmetrical. GI: Abdomen is round non-distended. Derm: Skin is diaphoretic, Skin is pink, Skin temperature is warm. Musculoskeletal: Circulation, motion, and sensation intact. Historical: - Allergies: 13:18 menthol; eh3 - PMHx: 13:18 Hypercholesterolemia; Hypertensive disorder; Gastroesophageal reflux disease; eh3 - Immunization history:: Adult Immunizations up to date. - Social history:: Smoking status: Patient denies any tobacco usage or history of. - Family history:: not pertinent. - Hospitalizations: : No recent hospitalization is reported. Screenin:19 [facility] ED Fall Risk Assessment (Adult) Score/Fall Risk Level 0 - 2 = Low Risk. Abuse eh3 screen: Denies threats or abuse. Denies injuries from another. Nutritional screening: No deficits noted. Tuberculosis screening: No symptoms or risk factors identified. Assessment: 13:19 Reassessment: No changes from previously documented assessment. See triage assessment. eh3 Pain: Pain does not radiate. Pain began 1 hour ago. 14:35 Reassessment: Patient is alert, oriented x 3, equal unlabored respirations, skin aa5 warm/dry/pink. 14:35 Pain: Pain currently is 6 out of 10 on a pain scale. Cardiovascular: Reports chest pain.aa5 14:48 Reassessment: Patient is alert, oriented x 3, equal unlabored respirations, skin aa5 warm/dry/pink. Patient states feeling better. 15:00 Reassessment: Patient appears in no apparent distress at this time. Patient and/or 3 family updated on plan of care and expected duration. Pain level reassessed. Patient is alert, oriented x 3, equal unlabored respirations, skin warm/dry/pink. 16:00 Reassessment: Patient appears in no apparent distress at this time. Patient and/or 3 family updated on plan of care and expected duration. Pain level reassessed. Patient is alert, oriented x 3, equal unlabored respirations, skin warm/dry/pink. 17:00 Reassessment: Patient appears in no apparent distress at this time. Patient and/or 3 family updated on plan of care and expected duration. Pain level reassessed. Patient is alert, oriented x 3, equal unlabored respirations, skin warm/dry/pink. 18:00 Reassessment: Patient appears in no apparent distress at this time. Patient and/or eh3 family updated on plan of care and expected duration. Pain level reassessed. Patient is alert, oriented x 3, equal unlabored respirations, skin warm/dry/pink. 19:00 Reassessment: Patient appears in no apparent distress at this time. Patient and/or eh3 family updated on plan of care and expected duration. Pain level reassessed. Patient is alert, oriented x 3, equal unlabored respirations, skin warm/dry/pink. Vital Signs: 13:15 BP 144 / 77; Pulse 67; Resp 18; Temp 98.5(O); Pulse Ox 99% ; Weight 78.02 kg; Height 5 eh3 ft. 5 in. ; Pain 3/10; 14:35 BP 123 / 81; Pulse 61; Resp 18 S; Pulse Ox 98% ; aa5 15:00 BP 125 / 79; Pulse 59; Resp 20; Pulse Ox 99% on R/A; eh3 15:30 BP 129 / 75; Pulse 57; Resp 15; Pulse Ox 99% on R/A; eh3 16:00 BP 121 / 72; Pulse 58; Resp 20; Pulse Ox 98% on R/A; eh3 17:00 BP 143 / 93; Pulse 63; Resp 19; Pulse Ox 97% on R/A; eh3 18:00 BP 137 / 80; Pulse 66; Resp 17; Pulse Ox 98% on R/A; eh3 19:00 BP 139 / 96; Pulse 66; Resp 16; Pulse Ox 98% on R/A; eh3 13:15 Body Mass Index 28.62 (78.02 kg, 165.1 cm) eh3 13:15 Pain Scale: Adult eh3 ED Course: 13:15 Patient arrived in ED. eh3 13:18 Triage completed. eh3 13:18 Arm band placed on. eh3 13:19 Patient has correct armband on for positive identification. Placed in gown. Bed in low eh3 position. Call light in reach. Side rails up X2. Provided Education on: Use of call mckeon. Client placed on continuous cardiac and pulse oximetry monitoring. NIBP monitoring applied. 13:19 Maintain EMS IV. Dressing intact. Good blood return noted. Site clean \T\ dry. Gauge \T\ eh 3 site: 20g RAC. Patient maintains SpO2 saturation greater than 95% on room air. 13:20 Betty Wade MD is Attending Physician. cp3 13:20 Tresa Veras, MAYRA is Primary Nurse. eh3 13:20 EKG done, by ED staff, reviewed by Betty Wade MD. em1 14:48 XRAY Chest (1 view) In Process Unspecified. EDMS 16:39 CT Chest For PE Angio In Process Unspecified. EDMS 17:20 Attema, Charles, [employer]-C is Hospitalizing Provider. cp3 17:49 Hospitalizing Provider role handed off by Charles Rai FNP-C cp3 17:49 Moris Pacheco MD is Hospitalizing Provider. 3 19:51 No provider procedures requiring assistance completed. Patient admitted, IV remains in [address] Administered Medications: 13:49 Not Given (Duplicate Order): aspirinchewable tablet 324 mg PO once; 81 mg tablets x 4 3 13:49 Drug: NS 0.9% IV 1000 ml IV at 1 bolus Per protocol; 1000 mL bolus Route: IV; Rate: 1 eh3 bolus; Site: right antecubital; 15:00 Follow up: IV Status: Completed infusion; IV Intake: 1000ml [facility] 14:35 Drug: morphine IVP or IV 4 mg IVP once over 4 mins Route: IVP; Infused Over: 4 mins; aa5 Site: right antecubital; 14:48 Follow up: Response: No adverse reaction [facility] 17:11 Drug: Enoxaparin Sub-Q 1 mg/kg Sub-Q once Route: Sub-Q; Site: right lower abdomen; aa5 18:00 Follow up: Response: No adverse reaction [facility] Medication: 19:52 VIS not applicable for this client. 3 Intake: 15:00 IV: 1000ml; Total: 1000ml. 3 Outcome: 17:25 Decision to Hospitalize by Provider. cp3 19:57 Admitted to Tele accompanied by tech, via wheelchair, room 403, Report called to Praneeth Galicia RN 19:57 Condition: stable 19:57 Instructed on the need for admit, 20:02 Patient left the ED. [facility] Signatures: Dispatcher [employer] Betty Car MD MD cp3 Levy Nino em1 Cindy Cotter RN RN aa5 Tresa Veras RN RN 3 Corrections: (The following items were deleted from the chart) 13:19 13:18 Allergies: No Known Allergies; [place] [id number]
--- NOTE | 2023-08-09 18:11 | P.HP ---
Certification for Inpatient Patient admitted to: Inpatient With expected LOS: >2 Midnights Patient will require the following post-hospital care: None Practitioner: I am a practitioner with admitting privileges, knowledge of patient current condition, hospital course, and medical plan of care. Services: Services provided to patient in accordance with Admission requirements found in Title 42 Section 412.3 of the Code of Federal Regulations Patient History Date of Service: 08/09/23 Reason for admission: NSTEMI History of Present Illness: 62-year-old male with history of hyperlipidemia, GERD presents to the emergency department chief complaint of chest pain. 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 EMS was called and patient was transported to hospital, in route to the hospital he was given 2 nitroglycerin which seemed to significantly relieve his pain. His EKG was without STEMI criteria initial high sensory troponin was 902.1, creatinine 1.52, GFR 51 CT angio of the chest was negative for pulmonary embolism or other acute findings in the chest. ED physician spoke with cardiology on-call who recommends admission, n.p.o. after midnight, anticipation of heart catheterization. He was given aspirin by EMS and therapeutic Lovenox in ED. Chest pain at worst was a 10 out of 10 for approximate 1 hour, pain is currently 1 out of 10. - Past Medical/Surgical History -: HLD -: GERD -: Hernia Psychosocial/ Personal History: Lives at home with - Family History Father -: Heart disease Brother -: Heart disease - Social History Smoking Status: Never smoker Alcohol use: No CD- Drugs: No Caffeine use: Yes Place of Residence: Home Review of Systems 10-point ROS is otherwise unremarkable Respiratory: Shortness of Breath Cardiovascular: Chest Pain Physical Examination - Physical Exam General: Alert, In no apparent distress, Oriented x3 HEENT: Atraumatic, PERRLA, Mucous membr. moist/pink, EOMI, Sclerae nonicteric Neck: Supple, 2+ carotid pulse no bruit, No LAD, Without JVD or thyroid abnormality Respiratory: Clear to auscultation bilaterally, Normal air movement Cardiovascular: Regular rate/rhythm, Normal S1 S2 Capillary refill: <2 Seconds Gastrointestinal: Normal bowel sounds, No tenderness Musculoskeletal: No tenderness Integumentary: No rashes Neurological: Normal speech, Normal strength at 5/5 x4 extr, Normal tone, Normal affect - Studies Laboratory Data (last 24 hrs) 08/09/23 08/09/23 08/09/23 13:39 13:39 13:39 WBC 10.20 Hgb 13.9 Hct 40.3 Plt Count 217 PT 11.3 INR 1.03 Sodium 138 Potassium 3.6 BUN 23 H Creatinine 1.52 H Glucose 111 H Magnesium 2.0 Total Bilirubin 0.2 AST 24 ALT 42 Alkaline Phosphatase 47 Assessment and Plan - Plan Assessment: NSTEMI Hyperlipidemia GERD Plan: NSTEMI Received aspirin, therapeutic Lovenox by EMS/in ED. Chest pain improved from 10 out of 10 to 1 out of 10 currently. Cardiology consult, echocardiogram ordered. N.p.o. for midnight in anticipation of cardiac catheterization. Repeat EKG prn. Hyperlipidemia Continue statin GERD Continue home meds DVT PPX: Therapeutic Lovenox Code status: Full Discharge Plan: Home Plan to discharge in: 48 Hours - Advance Directives Does patient have a Living Will: No Does patient have a Durable POA for Healthcare: No - Code Status/Comfort Care Code Status Assessed: Yes (Full code) Critical Care: No Time Spent Managing Pts Care (In Minutes): 55
[2023-08-09] MEDS ORDERED: ONDANSETRON 4 MG/2 ML VIAL IV PRN (18:40)
[2023-08-09] MEDS ORDERED: NITROGLYCERIN 0.4 MG/TAB SL PRN (18:40)
[2023-08-09] MEDS ORDERED: ENOXAPARIN 80 MG/0.8 ML SQ SCH (21:00)
[2023-08-09] MEDS: ATORVASTATIN 40 MG TAB PO SCH (21:00)
[2023-08-09 21:37] VITALS: BMI 28.6
[2023-08-09] MEDS: NA CHLORIDE 0.9% 1,000 ML IV SCH (21:37)
[2023-08-09] MEDS: MORPHINE 2 MG/ML SYR IV PRN (21:38)
[2023-08-10] MEDS: NA CHLORIDE 0.9% 1,000 ML IV SCH ×2 (05:14→15:00)
[2023-08-10 06:49] LABS: Absolute Lymphocytes (CBC) 2.9 K/uL (0.7-4.9); Hematocrit 38.9 % (39.6-49.0); Lymphocytes % 27.1 % (15.3-44.8); MPV 7.5 fL (7.6-11.3); Platelets 210 thou/uL (152-406); RBC Red Blood Cell Count 4.27 M/uL (4.33-5.43)
[2023-08-10 07:01] LABS: Thyroid Stimulating Hormone 2.34 uIU/mL (0.358-3.740)
--- NOTE | 2023-08-10 07:30 | P.PN ---
Date of Service: 08/10/23 Subjective: chest pressure continues - worse on exhale waiting for heart cath today no acute events overnight undergoing echocardiogram ROS: 10 point ROS as noted above, otherwise negative Physical Exam: GEN: Alert, oriented, NAD HEENT: Normal conjunctiva, sclera anicteric CV: Regular rate and rhythm, no edema Pulm: Nonlabored respirations on room air, clear bilaterally ABD: Soft, nontender, nondistended Integumentary: No rashes Neuro: Normal speech, normal affect vitals reviewed Problem List: NSTEMI Hyperlipidemia GERD NSTEMI Received aspirin, therapeutic Lovenox by EMS/ED. Trend troponins 900 -> 97511 -> [id number]; monitor on tele echo ordered / being done during rounds Cardiology consult NPO for heart cath today 08/10 PRN nitro continue IV fluids Hyperlipidemia Continue statin GERD Continue home meds VTE: Lovenox Code: Full Dispo: Home, ~1-2 days Pending heart cath
[2023-08-10] MEDS ORDERED: INFLUENZA VACCINE (for 6+ mo) 0.5 ML DOSE IMVAC ONE (08:00)
[2023-08-10] MEDS: ASPIRIN EC 81 MG TAB PO SCH (08:05)
[2023-08-10] MEDS ORDERED: ENOXAPARIN 80 MG/0.8 ML SQ SCH (09:00)
[2023-08-10] MEDS: MORPHINE 2 MG/ML SYR IV PRN ×2 (11:55→20:17)
--- NOTE | 2023-08-10 12:57 | EKG ---
Test Date: 2023-08-09 Test Time: 13:12:02 Racing Board Marker: JANAE MEASUREMENT RESULTS: Intervals: Rate: 64 [place]: 148 QRSD: 86 QT: 382 QTc: 394 [place]: P: 43 [place]: 148 QRS: 17 T: 82 INTERPRETIVE STATEMENTS: Normal sinus rhythm Nonspecific ST and T wave abnormality Abnormal ECG No previous ECG available for comparison Electronically Signed On 08-10-23 12:54:59 CDT by Dave Aldana
--- NOTE | 2023-08-10 13:08 | ECHO ---
HEIGHT: 5 ft 5 in WEIGHT: 172 lb 0 oz DATE OF STUDY: 08/10/[address]: KEZIA ALFRED, CWANZA 2-DIMENSIONAL: YES M.MODE: YES DOPPLER: YES COLOR FLOW: YES TDS: PORTABLE: YES DEFINITY: BUBBLE STUDY: DIAGNOSIS: CHEST PAIN CARDIAC HISTORY: CATHERIZATION: NO SURGERY: NO PROSTHETIC VALVE: NO PACEMAKER: NO MEASUREMENTS (cm) DIASTOLIC (NORMALS) SYSTOLIC (NORMALS) IVSd 1.0 (0.6-1.2) LA Diam 2.6 (1.9-4.0) LVEF 68% LVIDd 4.5 (3.5-5.7) LVIDs 2.8 (2.0-3.5) %FS 38% LVPWd 1.2 (0.6-1.2) Ao Diam 2.8 (2.0-3.7) 2 DIMENSIONAL ASSESSMENT: RIGHT ATRIUM: NORMAL LEFT ATRIUM: NORMAL RIGHT VENTRICLE: NORMAL LEFT VENTRICLE: NORMAL TRICUSPID VALVE: MILD TRICUSPID REGURGITATION MITRAL VALVE: MODERATE TRICUSPID REGURGITATION PULMONIC VALVE: NORMAL AORTIC VALVE: NORMAL PERICARDIAL EFFUSION: NONE AORTIC ROOT: NORMAL LEFT VENTRICULAR WALL MOTION: NORMAL DOPPLER/COLOR FLOW: SEE BELOW COMMENTS: 1. NORMAL LEFT VENTRICULAR EJECTION FRACTION 60-65% WITH NORMAL WALL MOTION 2. MODERATE DIASTOLIC DYSFUNCTION 3. MILD MITRAL REGURGITATION 4. MILD TRICUSPID REGURGITATION TECHNOLOGIST: YE WOLFF
[2023-08-10] MEDS ORDERED: HEPA 1000U/500MLS 2,000 UNIT/1,000 ML BAG IV ONE ×2 (13:13→14:36)
[2023-08-10] MEDS ORDERED: LIDOCAINE 1% 20 ML MDV ONE ×2 (13:13→14:36)
[2023-08-10] MEDS ORDERED: HEPARIN 5000 UNIT/ML 1 ML VIAL ONE (13:14)
[2023-08-10] MEDS ORDERED: MIDAZOLAM HCL 2 MG/2 ML INJ ONE (13:14)
[2023-08-10] MEDS ORDERED: VERAPAMIL HCL 10 MG/4 ML VIAL IV ONE (13:14)
[2023-08-10] MEDS ORDERED: FENTANYL CITR 100 MCG/2 ML ONE (13:14)
[2023-08-10] MEDS ORDERED: ATROPINE SULF 1 MG/10 ML SYR IV ONE (13:15)
[2023-08-10] MEDS ORDERED: NITROGLYCERIN 100 MCG/ML SYR (for cath lab use only) IV ONE (13:15)
[2023-08-10] MEDS ORDERED: HEPARIN 10,000 UNIT/10 ML VIAL IV ONE (13:15)
[2023-08-10] MEDS ORDERED: NITROGLYCERIN/D5W 25 MG/250 ML BTL IV ONE (13:15)
[2023-08-10] MEDS ORDERED: CLOPIDOGREL 75 MG TABLET ONE (13:15)
[2023-08-10] MEDS ORDERED: TICAGRELOR 90 MG TABLET PO ONE (13:15)
[2023-08-10] MEDS ORDERED: NA CHLORIDE 0.9% 500 ML ONE (13:29)
--- NOTE | 2023-08-10 15:48 | CON ---
Date of Consultation: 08/10/2023 Reason For Consultation: Non-ST elevation myocardial infarction. History Of Present Illness: This is a middle-aged male with history of dyslipidemia, hypertension, p resented to the emergency room with retrosternal chest pain, radiates to his neck and left upper extr emities, on and off. There was no STEMI by the EKG and the ER, so he was admitted on Lovenox and giv en aspirin. I saw him by bedside. He is still having pain on and off and his troponin peaked at 120 ,000. Past Medical History: As outlined above in the HPI. Medications: Refer to reconciliation sheet for detailed list. Allergies: NO KNOWN DRUG ALLERGIES. Family History: No premature coronary artery disease or cancer. Social History: He does not smoke or drink or use any drugs. Review of Systems: All systems reviewed and they were negative except what mentioned in HPI. Physical Examination: Vital Signs: Reviewed. Head and Neck: Pupils are equal, reactive to light. Intact eye movements. No JVD. No cervical lym phadenopathy. Neck is supple. Thyroid is not enlarged. Lungs: Clear to auscultation bilaterally. No rhonchi, wheezing, or crackles. No accessory muscle u se. Heart: Regular rate and rhythm. No extra sounds. Abdomen: Soft, nontender. Bowel sounds positive. No organomegaly. No masses or hernia. No rigidi ty or rebound. Extremities: No edema, clubbing, or cyanosis. Intact pulses. Skin: No rash. Neurologic: Alert, awake, oriented x3. No acute focal deficits appreciated. Lymph Nodes: No cervical or axillary lymphadenopathy. Investigations: Labs were reviewed. Troponin peaked at 120,000 and creatinine is 1.0. Assessment And Recommendations: 1.Non-ST elevation myocardial infarction with active chest pain. He is n.p.o. We will take him kaitlin n immediately for coronary angiogram and PCI as indicated. Continue aspirin for now. 2.Dyslipidemia. Lipitor 40 mg at bedtime. 3.Hypertension. Blood pressure is controlled. SR/MODL Voice ID: [id number] Report ID: [id number]
--- NOTE | 2023-08-10 16:12 | OP ---
Date of Procedure: 08/10/2023 Surgeon: SONU CORONEL Procedures Performed: 1.Selective coronary angiogram. 2.Left heart catheterization. 3.PCI of 100% occlusion of the proximal left circumflex, which is 1 of the culprit. I used 2.5 x 20 mm Synergy drug-eluting stent. 4.PCI of critical mid LAD 99% stenosis, likely is a culprit also with TN and I used 3.0 x 20 mm Syne rgy drug-eluting stent, post dilated to 3.25 x 8 mm NC balloon. 5.PCI of critical mid RCA 99% stenosis and the proximal RCA to 90% stenosis. I used 3.5 x 48 mm Syn ergy drug-eluting stent. Indication: Non-ST elevation myocardial infarction. Access: 1.Right femoral artery 6-Senegalese closed with 6-Senegalese Angio-Seal. 2.Right radial artery 6-Senegalese closed with TR band. Complications: None. Total amount of contrast used 140 mL. Anesthesia: Total sedation time was 70 minutes. Description Of Procedure: After risks, benefits, and alternatives were explained, the patient agreed to procedure and signed informed consent. The patient was brought into cardiac catheterization [facility], prepped and draped in the usual sterile fashion and then I accessed the right femoral artery using micropuncture kit and fluoroscopy guidance and ultrasound guidance and placed a 6-Senegalese Pinnac le sheath, took 6-Senegalese JL4 catheter into the aortic root, engaged left main and took standard views , and then a 6-Senegalese JR4 catheter and engaged the RCA took standard views and the catheter was pushe d over the wire into the LV, measured the LVEDP and pullback did not record any gradient. Then, I al so accessed right radial artery using micropuncture kit and placed a 6-[place]eg[place]e Slender sheath, took EB U3.5 guide into the aortic root, engaged left main, took standard views and then I gave systemic hepa rin to assure ACT level above 250 and 180 mg of Brilinta and the patient already is on aspirin receiv ed today and I passed the Run-Through wire into the LAD, placed it distally. The lesion was post dil ated using a 3.0 balloon and then I placed a 3.0 x 20 mm Synergy drug-eluting stent with excellent ex pansion and used after that a 3.25 x 8 mm Noncompliant balloon to post-dilate and then I exchanged fo r a 6-Senegalese JR4 guide and engaged the RCA and through to the distal RCA and using a 3.5 b alloon, lesions were pre-dilated and then I stented mid to proximal using a 3.5 x 48 mm Synergy drug- eluting stent with excellent expansion and excellent angiographic results. I removed the JR4 guide a nd then I took an EBU3.5 guide through the radial access into the aortic root because of the left cir cumflex was totally occluded, which probably is totally occluded since yesterday and I believe it is part of the picture, but the RCA and the LAD were critical, so I fixed them first and then I took EBU through the radial access into the aortic root, engaged left main, took Run-Through wire into the le ft circ and advanced it distally and using a 2.5 balloon, lesions were opened and established flow, a nd then I placed 2.5 x 20 mm balloon and likely the left circumflex is small and jailed, so it was le ft alone, but established MATTHIAS-3 flow in the OM, which is a moderate-size vessel. Then, I removed th e wire and the guide and the sheath and placed TR band and removed the femoral sheath and placed a 6- [place] Angio-Seal with good hemostasis. Findings: 1.Left main; large and normal. 2.LAD; proximal 50%, mid 99%, status post successful PCI. Distal, there was focal 80%, but becomes a small vessel and diagonal 1 branch has mid 50% stenosis. 3.Left circumflex; it is moderate-sized vessel, nondominant, with 100% occlusion proximally, status post successful PCI as above, and there is disease in the OM distally ranging between 30% and 40%. 4.RCA; very large and dominant, proximal 80% to 90% and mid 99%, status post successful PCI as above . 5.Elevated LVEDP. Conclusion: Severe multivessel coronary artery disease, status post complete revascularization. Plan: Aspirin, Brilinta, high dose statin, and to start heparin 2 hours post TR band removal, and re peat echo tomorrow. SR/MODL Voice ID: [id number] Report ID: [id number]
[2023-08-10] MEDS: HEPARIN/D5W 25,000 UNIT/500 ML BAG IV SCH (20:58)
[2023-08-10] MEDS: TICAGRELOR 90 MG TABLET PO SCH (20:59)
[2023-08-10] MEDS: ATORVASTATIN 40 MG TAB PO SCH (21:00)
[2023-08-11] MEDS: NA CHLORIDE 0.9% 1,000 ML IV SCH (00:27)
[2023-08-11] MEDS: MORPHINE 2 MG/ML SYR IV PRN (00:27)
[2023-08-11 04:53] LABS: Absolute Lymphocytes (CBC) 2.6 K/uL (0.7-4.9); Hematocrit 37.1 % (39.6-49.0); Lymphocytes % 22.9 % (15.3-44.8); MCV 91.1 fL (80-100); MPV 7.7 fL (7.6-11.3); Platelets 195 thou/uL (152-406); RBC Red Blood Cell Count 4.08 M/uL (4.33-5.43)
[2023-08-11 05:18] LABS: Potassium 3.3 mEq/L (3.5-5.1)
--- NOTE | 2023-08-11 06:56 | P.PN ---
Date of Service: 08/11/23 Subjective: Feeling better than yesterday denies any chest pain/pressure Breathing is okay on room air no acute events overnight ROS: 10 point ROS as noted above, otherwise negative Physical Exam: GEN: Alert, oriented, NAD HEENT: Normal conjunctiva, sclera anicteric CV: Regular rate and rhythm, no edema Pulm: Nonlabored respirations on room air, clear bilaterally ABD: Soft, nontender, nondistended Integumentary: No rashes Neuro: Normal speech, normal affect vitals reviewed Problem List: NSTEMI Severe multivessel CAD s/p PCI (08/10) Hyperlipidemia GERD NSTEMI Severe multivessel CAD s/p PCI (08/10) Received aspirin, therapeutic Lovenox by EMS/ED. troponins 900 -> 00795 -> 42676 > +125,000; monitor on tele echo (08/10): 67% EF, moderate diastolic dysfunction, mild MR, mild TR Cardiology consult s/p cath with severe multivessel CAD, s/p PCIx3 (08/10) cont aspirin, brilinta, statin IV heparin per cardiology repeat echo today PRN nitro continue IV fluids encourage incentive spirometry Hyperlipidemia Continue statin GERD Continue home meds VTE: IV heparin Code: Full Dispo: Home, ~1-2 days Pending repeat echo, further cardiac rec
--- NOTE | 2023-08-11 07:18 | RAD REPORT ---
EXAM DESCRIPTION: Kayley Single View08/11/2023 7:00 am CLINICAL HISTORY: Tachypneic COMPARISON: August 09, 2023 FINDINGS: Mild bilateral pulmonary opacities have resolved. The The lungs appear clear of acute infiltrate. The heart is borderline enlarged. IMPRESSION: No acute abnormalities displayed
[2023-08-11] MEDS: ASPIRIN EC 81 MG TAB PO SCH (07:56)
[2023-08-11] MEDS: TICAGRELOR 90 MG TABLET PO SCH ×2 (07:57→20:53)
--- NOTE | 2023-08-11 18:38 | PN ---
Subjective: Seen by bedside, doing clinically very well. No further chest pain. Review of Systems: No chest pain, shortness of breath, orthopnea, or cough. No nausea, vomiting, or diarrhea. All othe r systems were reviewed, they were negative. Physical Examination: Vital Signs: Reviewed. Head and Neck: Pupils are equal, reactive to light. Intact eye movements. No JVD. No cervical lym phadenopathy. Neck is supple. Thyroid is not enlarged. Lungs: Clear to auscultation bilaterally. No rhonchi, wheezing, or crackles. No accessory muscle u se. Heart: Regular rate and rhythm. No extra sounds. Abdomen: Soft, nontender. Bowel sounds positive. No organomegaly. No masses or hernia. No rigidi ty or rebound. Extremities: No edema, clubbing, or cyanosis. Intact pulses. Skin: No rash. No nodule. Neurologic: Alert, awake, oriented x3. No acute focal deficits appreciated Lymph Nodes: No cervical or axillary lymphadenopathy. Investigations: Labs were reviewed. Assessment And Recommendations: 1.Cdp-DJ-bhomxruvk myocardial infarction, status post multivessel PCI including LAD, left circ, and the RCA. Excellent outcome. Echo today showed normal ejection fraction. Continue heparin for anoth er 24 hours. Continue Brilinta and aspirin and I recommend to start low dose of beta-hong metopro lol 12.5 mg twice a day. 2.Dyslipidemia. Agree with Lipitor 40 mg q.h.s. 3.Hypokalemia. Replace potassium. Re-evaluate. SR/MODL Voice ID: [id number] Report ID: [id number]
[2023-08-11] MEDS: ATORVASTATIN 40 MG TAB PO SCH (20:53)
[2023-08-11] MEDS: ACETAMINOPHEN 325 MG TABLET PO PRN (20:53)
[2023-08-11] MEDS: HEPARIN/D5W 25,000 UNIT/500 ML BAG IV SCH (21:01)
[2023-08-12 03:16] LABS: Absolute Lymphocytes (CBC) 2.7 K/uL (0.7-4.9); Hematocrit 37.2 % (39.6-49.0); Lymphocytes % 28.1 % (15.3-44.8); MCV 90.4 fL (80-100); MPV 8.1 fL (7.6-11.3); Platelets 170 thou/uL (152-406); RBC Red Blood Cell Count 4.11 M/uL (4.33-5.43)
[2023-08-12 03:44] LABS: Potassium 3.7 mEq/L (3.5-5.1)
--- NOTE | 2023-08-12 07:27 | ECHO ---
HEIGHT: 5 ft 5 in WEIGHT: 172 lb 0 oz DATE OF STUDY: 08/11/[address]: Moris Pacheco MD 2-DIMENSIONAL: YES M.MODE: YES DOPPLER: NO COLOR FLOW: NO TDS: PORTABLE: DEFINITY: BUBBLE STUDY: DIAGNOSIS: STAUS POST CATH NET REPAIRER COMMENTS: LIMITED, EJECTION FRACTION ONLY CARDIAC HISTORY: CATHERIZATION: YES SURGERY: NO PROSTHETIC VALVE: NO PACEMAKER: NO MEASUREMENTS (cm) DIASTOLIC (NORMALS) SYSTOLIC (NORMALS) IVSd 0.9 (0.6-1.2) LA Diam 2.4 (1.9-4.0) LVEF 68% LVIDd 3.3 (3.5-5.7) LVIDs 2.1 (2.0-3.5) %FS 37% LVPWd 0.9 (0.6-1.2) Ao Diam 2.9 (2.0-3.7) 2 DIMENSIONAL ASSESSMENT: RIGHT ATRIUM: LEFT ATRIUM: RIGHT VENTRICLE: LEFT VENTRICLE: TRICUSPID VALVE: MITRAL VALVE: PULMONIC VALVE: AORTIC VALVE: PERICARDIAL EFFUSION: AORTIC ROOT: LEFT VENTRICULAR WALL MOTION: DOPPLER/COLOR FLOW: COMMENTS: 1. FOCUSED ECHOCARDIOGRAM TO EVALUATE EJECTION FRACTION ONLY 2. NORMAL LEFT VENTRICULAR EJECTION FRACTION 60-65% 3. NORMAL WALL MOTION TECHNOLOGIST: YE WOLFF
[2023-08-12] MEDS: ASPIRIN EC 81 MG TAB PO SCH (09:04)
[2023-08-12] MEDS: ACETAMINOPHEN 325 MG TABLET PO PRN (09:04)
[2023-08-12] MEDS: TICAGRELOR 90 MG TABLET PO SCH ×2 (09:04→20:56)
--- NOTE | 2023-08-12 11:39 | P.PN ---
Date of Service: 08/12/23 Subjective: Feeling better Breathing comfortably on room air no acute events overnight ROS: 10 point ROS as noted above, otherwise negative Physical Exam: GEN: Alert, oriented, NAD HEENT: Normal conjunctiva, sclera anicteric CV: Regular rate and rhythm, no edema Pulm: Nonlabored respirations on room air, clear bilaterally ABD: Soft, nontender, nondistended Neuro: Normal speech, normal affect vitals reviewed Problem List: NSTEMI Severe multivessel CAD s/p PCI (08/10) Hyperlipidemia GERD NSTEMI Severe multivessel CAD s/p PCI (08/10) Received aspirin, therapeutic Lovenox by EMS/ED. troponins 900 -> 53735 -> 00068 > +125,000; monitor on tele echo (08/10): 67% EF, moderate diastolic dysfunction, mild MR, mild TR s/p cath with severe multivessel CAD, s/p PCIx3 (08/10) cont aspirin, brilinta, statin DC heparin drip and start low dose metoprolol 08/12 repeat echo(08/12): 68% EF PRN nitro encourage incentive spirometry Hyperlipidemia Continue statin GERD Continue home meds VTE: Ambulatory Code: Full Dispo: Home, ~1 day Pending completion of IV heparin, cardiac rec; monitor tonight
--- NOTE | 2023-08-12 14:41 | PN ---
Date of Progress Note: 08/12/2023 Subjective: Seen by bedside. Doing clinically well. No chest pain. Review of Systems: No chest pain, shortness of breath, orthopnea, cough. No nausea, vomiting, diarrhea. All other syst ems reviewed and they were negative. Physical Examination: Vital Signs: Reviewed. Head and Neck: Pupils are equal, reactive to light. Intact eye movements. No JVD. No cervical lym phadenopathy. Neck is supple. Thyroid is not enlarged. Lungs: Clear to auscultation bilaterally. No rhonchi, wheezing, or crackles. No accessory muscle u se. Heart: Regular rate and rhythm. No extra sounds. Abdomen: Soft, nontender. Bowel sounds positive. No organomegaly. No masses or hernia. No rigidi ty or rebound. Extremities: No edema, clubbing, or cyanosis. Intact pulses. Skin: No rash or nodules. Neurologic: Alert, awake, oriented x3. No acute focal deficits appreciated. Lymph Nodes: No cervical or axillary lymphadenopathy. Investigations: Labs were reviewed. Assessment And Recommendations: 1.Non-ST elevation myocardial infarction, status post multivessel PCI, doing very well. Ejection fr action is normal. Start metoprolol 12.5 mg twice a day. Continue Brilinta and aspirin. 2.Dyslipidemia. Continue statin at 40 mg at bedtime. Discontinue IV heparin and plan for discharge within next 24 hours if he continues to be stable. SR/MODL Voice ID: [id number] Report ID: [id number]
[2023-08-12] MEDS: METOPROLOL TAR 25 MG TAB PO SCH (17:58)
[2023-08-12] MEDS: ATORVASTATIN 40 MG TAB PO SCH (20:57)
[2023-08-13 03:23] VITALS: O2SAT 96
[2023-08-13 04:17] LABS: Hematocrit 39.1 % (39.6-49.0); MCV 90.6 fL (80-100); MPV 8.1 fL (7.6-11.3); Platelets 199 thou/uL (152-406); RBC Red Blood Cell Count 4.31 M/uL (4.33-5.43)
[2023-08-13 04:51] LABS: Albumin 3.1 g/dL (3.4-5.0); Phosphorus 2.7 mg/dL (2.5-4.9)
[2023-08-13] MEDS: METOPROLOL TAR 25 MG TAB PO SCH (05:49)
[2023-08-13] MEDS: TICAGRELOR 90 MG TABLET PO SCH (08:49)
[2023-08-13] MEDS: ASPIRIN EC 81 MG TAB PO SCH (08:49)
--- NOTE | 2023-08-13 08:52 | P.DS ---
Admission Date: 08/09/23 Discharge Date: 08/13/23 Disposition: ROUTINE DISCHARGE Discharge Condition: GOOD Reason for Admission: NSTEMI Consultations: Cardiology - Dr. Aldana Brief History of Present Illness: 62yo M, PMH: hyperlipidemia, GERD Erika presents to the emergency department chief complaint of chest pain. 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 EMS was called and patient was transported to hospital, in route to the hospital he was given 2 nitroglycerin which seemed to significantly relieve his pain. His EKG was without STEMI criteria initial high sensory troponin was 902.1, creatinine 1.52, GFR 51 CT angio of the chest was negative for pulmonary embolism or other acute findings in the chest. ED physician spoke with cardiology on-call who recommends admission, n.p.o. after midnight, anticipation of heart catheterization. He was given aspirin by EMS and therapeutic Lovenox in ED. Chest pain at worst was a 10 out of 10 for approximate 1 hour, pain is currently 1 out of 10. Hospital Course: Problem List: NSTEMI Severe multivessel CAD s/p PCI (08/10) Hyperlipidemia GERD Patient presented with severe chest pain, shortness of breath consistent with unstable angina. Troponins were trended and significantly increased, EKG without ST changes; consistent with NSTEMI Cardiology was consulted. Patient underwent urgent successful heart cath on 08/[address] Aldana and found to have severe multivessel CAD (99%, 99%, 100%), s/p PCIx3 (08/10). Post operatively, patient was given aspirin, metoprolol, brilinta, statin, and IV heparin for a short period. Patient was monitored, feeling better, and was deemed stable for discharge home. Recommend close follow up with cardiology in 1-2 weeks Pre-op echocardiogram noted normal EF with some diastolic dysfunction. Post-op echo performed to eval EF, which was preserved. Medications: aspirin metoprolol 12.5mg twice daily brilinta 90mg twice daily atorvastatin 40mg at bedtime If there are any issues with filling out the prescription for Brilinta, Recommend to call this hospital ([facility]) to send prescription for Plavix instead. Follow up: PCP 3-5 days Cardiology in 1-2 week Cath report: 1. Left main; large and normal. 2. LAD; proximal 50%, mid 99%, status post successful PCI. Distal, there was focal 80%, but becomes a small vessel and diagonal 1 branch has mid 50% stenos is. 3. Left circumflex; it is moderate-sized vessel, nondominant, with 100% occlusion proximally, status post successful PCI as above, and there is disease in the OM distally ranging between 30% and 40%. 4. RCA; very large and dominant, proximal 80% to 90% and mid 99%, status post successful PCI as above. 5. Elevated LVEDP Physical Exam: GEN: Alert, oriented, NAD HEENT: Normal conjunctiva, sclera anicteric CV: Regular rate and rhythm, no edema Pulm: Nonlabored respirations on room air, clear bilaterally ABD: Soft, nontender, nondistended Neuro: Normal speech, normal affect Vital Signs/Physical Exam: Temp Pulse Resp BP Pulse Ox 98.0 F 81 15 117/66 97 08/13/23 04:00 08/13/23 04:00 08/13/23 04:00 08/13/23 04:00 08/13/23 04:00 Laboratory Data at Discharge: WBC 10.20 thou/uL (4.3-10.9) 08/13/23 03:36 Hgb 13.7 g/dL (13.6-17.9) 08/13/23 03:36 Hct 39.1 % (39.6-49.0) L 08/13/23 03:36 Plt Count 199 thou/uL (152-406) 08/13/23 03:36 PT 11.3 SECONDS (9.5-12.5) 08/09/23 13:39 INR 1.03 08/09/23 13:39 APTT 64.1 SECONDS (24.3-36.9) H 08/12/23 16:20 Sodium 138 mEq/L (136-145) 08/13/23 03:36 Potassium 4.0 mEq/L (3.5-5.1) 08/13/23 03:36 BUN 18 mg/dL (7-18) 08/13/23 03:36 Creatinine 1.31 mg/dL (0.70-1.30) H 08/13/23 03:36 Glucose 106 mg/dL (74-106) 08/13/23 03:36 Phosphorus 2.7 mg/dL (2.5-4.9) 08/13/23 03:36 Magnesium 2.0 mg/dL (1.6-2.4) 08/12/23 02:00 Total Bilirubin 0.2 mg/dL (0.2-1.0) 08/09/23 13:39 AST 24 U/L (15-37) 08/09/23 13:39 ALT 42 U/L (16-61) 08/09/23 13:39 Alkaline Phosphatase 47 U/L (45-117) 08/09/23 13:39 Triglycerides 216 mg/dL (<150) H 08/10/23 06:18 Cholesterol 189 mg/dL (<200) 08/10/23 06:18 HDL Cholesterol 30 mg/dL (40-60) L 08/10/23 06:18 Cholesterol/HDL Ratio 6.30 08/10/23 06:18 Home Medications: Fenofibrate [Tricor*] 160 mg PO DAILY 08/10/23 Omeprazole [Prilosec] 40 mg PO ACB 08/10/23 Aspirin [Aspirin EC 81 MG] 81 mg PO DAILY 30 Days #30 tab 08/13/23 Atorvastatin Calcium [Lipitor] 40 mg PO BEDTIME 30 Days #30 tab 08/13/23 Metoprolol Tartrate [Lopressor*] 0.5 tab PO BID 30 Days #30 tab 08/13/23 Ticagrelor [Brilinta*] 90 mg PO BID 30 Days #60 tab 08/13/23 New Medications: Aspirin [Aspirin EC 81 MG] 81 mg PO DAILY 30 Days #30 tab Ticagrelor [Brilinta*] 90 mg PO BID 30 Days #60 tab Atorvastatin Calcium [Lipitor] 40 mg PO BEDTIME 30 Days #30 tab Metoprolol Tartrate [Lopressor*] 0.5 tab PO BID 30 Days #30 tab Physician Discharge Instructions: Patient presented with severe chest pain, shortness of breath consistent with unstable angina. Troponins were trended and significantly increased, EKG without ST changes; consistent with NSTEMI Cardiology was consulted. Patient underwent urgent successful heart cath on 08/[address] Aldana and found to have severe multivessel CAD (99%, 99%, 100%), s/p PCIx3 (08/10). Post operatively, patient was given aspirin, metoprolol, brilinta, statin, and IV heparin for a short period. Patient was monitored, feeling better, and was deemed stable for discharge home. Recommend close follow up with cardiology in 1-2 weeks Pre-op echocardiogram noted normal EF with some diastolic dysfunction. Post-op echo performed to eval EF, which was preserved. Medications: aspirin metoprolol 12.5mg twice daily brilinta 90mg twice daily atorvastatin 40mg at bedtime If brillinta ends up being too expensive / unable to fill, Recommend to call this hospital ([facility]) to send prescription for Plavix instead. Follow up: PCP 3-5 days Cardiology in 1-2 week Cath report: 1. Left main; large and normal. 2. LAD; proximal 50%, mid 99%, status post successful PCI. Distal, there was focal 80%, but becomes a small vessel and diagonal 1 branch has mid 50% stenosis. 3. Left circumflex; it is moderate-sized vessel, nondominant, with 100% occlus ion proximally, status post successful PCI as above, and there is disease in the OM distally ranging between 30% and 40%. 4. RCA; very large and dominant, proximal 80% to 90% and mid 99%, status post successful PCI as above. 5. Elevated LVEDP Diet: AHA Activity: Ad shakila Followup: NONE,NONE [Primary Care Provider] - Time spent managing pt's care (in minutes): 45
[2023-08-13 09:46] VITALS: BP 116/77; TEMP 98.5
== END 2023-08-13 10:21 | disposition home or self-care (01) | DRG 247 ==
LOC: ER 13:10 → ERHOLD 18:02 → 4TH 19:47 → 3RD-ICU 08-10 18:26 → 2ND 08-11 15:21
PROVIDERS: ADMIT Hospitalist; ATTEND Hospitalist
PROC: 027236Z Dilation of Coronary Artery, Three Arteries with Three Drug-eluting Intraluminal Devices, Percutaneous Approach (ICD-10-PCS; principal; 2023-08-10)
PROC: 4A023N7 Measurement of Cardiac Sampling and Pressure, Left Heart, Percutaneous Approach (ICD-10-PCS; 2023-08-10)
PROC: B2111ZZ Fluoroscopy of Multiple Coronary Arteries using Low Osmolar Contrast (ICD-10-PCS; 2023-08-10)
DX: I21.4 Non-ST elevation (NSTEMI) myocardial infarction (principal); I10 Essential (primary) hypertension; K21.9 Gastro-esophageal reflux disease without esophagitis; E78.00 Pure hypercholesterolemia, unspecified; E87.6 Hypokalemia; I08.1 Rheumatic disorders of both mitral and tricuspid valves; I25.110 Atherosclerotic heart disease of native coronary artery with unstable angina pectoris; Z91.09 Other allergy status, other than to drugs and biological substances; Z79.82 Long term (current) use of aspirin; Z79.899 Other long term (current) drug therapy
CPT/HCPCS: 36415; 71045; 71275; 76937; 80048; 80061; 80069; 80076; 82550; 83735; 83880; 84439; 84443; 84484; 85025; 85027; 85347; 85379; 85610; 85730; 92928; 92929; 93005; 93306; 93307; 93458; 94010; 96361; 96372; 96374; 99285; C1725; C1760; C1893; G0269; J0461; J1644; J2001; J2250; J2270; J3010; J7030; J7040; Q9967

== ENCOUNTER 2023-08-26 01:03 | Observation (INO) | payer BC ==
--- OUTSIDE RECORDS SUMMARY | 2023-08-26 01:08 | XMS REPORT | Continuity of Care Document ---
:1960 Author Organization [facility] t Address [address] [place] [address] [address] [place] [address] Care Team Providers Name Role Phone Fadia Macias Attending Clinician Unavailable Emiliana Benitez Attending Clinician Bernard Gaines Attending Clinician Bonnie Walsh Attending Clinician DR MARCO A SIMEON Attending Clinician Unavailable DR BRENDON WKAEFIELD Attending Clinician Unavailable DR MARCO A SIMEON Admitting Clinician Unavailable DR BRENDON WAKEFIELD Admitting Clinician Unavailable Problems Condition Condition Condition Status Onset Resolution Last Treating Co mments Source Name Details Category Date Date Treatment Clinician Date [id number] Gastroesop Problem Co mmon hageal Spirit reflux - [facility] disease [facility] esophagiti [facility] [place] [id number] Mixed Problem Common hyperlipid Spirit emia - [facility] [id number] Statin Problem Common intoleranc Spirit e - [facility] [id number] Other Problem Common obesity Spirit due to - [facility] excess [facility] [id number] Body mass Problem Com mon index Spirit [BMI] - [facility] 30.0-30.9, [facility] Hyperlipid Problem Active 2018-12-31 M vic barkleyia Hyperlipid 15:33:59 l (disorder) johanne Back n (disorder) Active Problem 12/31/2018 [facility] Allergies, Adverse Reactions, Alerts Allergy Allergy Status Severity Reaction(s) Onset Inactive Treating Comm ents Source Name Type Date Date Clinician menthol menthol Active Memoria topical< topical< l sup>1</s sup>1</s Wong n up> up> [id number] Drug Active rash Common allergy [facility] Substan Substan Active severe Common ce with ce with myalgias [facility] 3-hydrox 3-hydrox - [facility] y-3-meth y-3-meth [facility]-co[facility]l-coenz [facility] reductas reductas e e inhibito inhibito r r mechanis mechanis m of m of action action (substan (substan ce) ce) gemfibro gemfibro Active myalgias Comm on zil zil [facility] Social History Social Habit Start Date Stop Date Quantity Comments Source History of Tobacco Use Co mmon [facility] Sex Assigned At Com mon [facility] Smoking Status Start Date Stop Date Source Never Smoker Common [facility] Social History 2018-06-13 12:06:11 2018-06-13 12:06:11 [facility] Medications Ordered Filled Start Stop Current Ordering Indication Dosage Frequency Signature Comments Components Source Medication Medication Date Date Medication? Clinician (SIG) Name Name Vini Martini No 1{table QD Atorvastat n Calcium n Calcium 9-26 t} in Calcium 40 MG 40 MG 00:00: 40 MG 00 Atorvastajaspreet Atorjocelyntati No 1{table QD Atorvastat n Calcium [...] 8-24 40 MG 00:00: 00 Omeprazole Omeprazole 2022-0 No QD Omeprazole 40 MG 40 MG 8-24 40 MG 00:00: 00 Mupirocin 2017- No 1 appl, Memor ia 0.02 MG/MG 7-31 TOP, BID, l Topical 12:17: Apply to Wong n Ointment 00 affected [Bactroban] area(s), X 7 day, # 22 gm, 0 Refill(s), Pharmacy: [facility] baclofen Yes 20 mg = 1 M emoria mg oral 7-31 tab, PO, l tablet 12:17: BID, PRN Daryl 00 Spasms, # 60 tab, 0 Refill(s), Pharmacy: [facility] baclofen Yes 20 mg = 1 M emoria mg oral 7-31 tab, PO, l tablet 12:17: BID, PRN Daryl 00 Spasms, # 60 tab, 0 Refill(s), Pharmacy: [facility] Mupirocin No 1 appl, Memor ia 0.02 MG/MG 7- TOP, BID, l Topical 12:17: Apply to Wong n Ointment 00 affected [Bactroban] area(s), X 7 day, # 22 gm, 0 Refill(s), Pharmacy: [facility] triamcinolo No 80 mg, Jeffery teri ne 3-13 Route: IM, l ACETONIDE 19:54: ONCE, Daryl 40 mg/mL 00 Dosing injectable Weight suspension 78.693, kg, Start date: 01/24/18 14:54:00 CDT, Stop date: 01/24/18 14:54:00 CDT triamcinolo 2017-0 No 80 mg, Jeffery teri ne 3 Route: IM, l ACETONIDE 19:54: ONCE, [place] 40 mg/mL 00 Dosing injectable Weight suspension 78.693, kg, Start date: 01/24/18 14:54:00 CDT, Stop date: 01/24/18 14:54:00 CDT rosuvastati Yes 5 mg = 1 Me moria n 5 mg oral 3-13 tab, PO, l tablet 19:53: Bedtime, # Jade nn 00 30 tab, 7 Refill(s), Pharmacy: [facility] 482 rosuvastati Yes 5 mg = 1 Me moria n 5 mg oral 3-13 tab, PO, l tablet 19:53: Bedtime, # Jade nn 00 30 tab, 7 Refill(s), Pharmacy: [facility] 482 aspirin 81 2016-11 Yes 81 mg = 1 Me moria mg tablet, 1-27 tab, PO, l enteric 13:38: Daily, # Wong n coated 00 90 tab, 3 Refill(s) rosuvastati 2016-11 Yes 5 mg = 1 Me moria n 5 mg oral 1-27 tab, PO, l tablet 13:38: Bedtime, # Jade nn 00 30 tab, 0 Refill(s) aspirin 81 2016-11 Yes 81 mg = [...] Omeprazole 40 MG 40 MG 40 MG Omeprazole Omeprazole No QD Omeprazole 40 MG 40 MG 40 MG Tessa-Seltze Tessa-Seltze No Tessa-Seltz r Antacid r Antacid er Antacid Gemfibrozil Gemfibrozil No BID Gemfibrozi 600 MG 600 MG l 600 MG Tessa-Seltze Tessa-Seltze No Tessa-Seltz r Antacid r Antacid er Antacid Vital Signs Vital Name Observation Time Observation Value Comments Source height 2022-11-09 09:40:00 63.5 [in_i] Common [facility] weight 2022-11-09 09:40:00 172.6 [lb_av] [facility] temperature 2022-11-09 09:40:00 98.1 [degF] Common [facility] bmi 2022-11-09 09:40:00 30.09 kg/m2 [facility] oximetry 2022-11-09 09:40:00 97 % [facility] respiratory rate 2022-11-09 09:40:00 17 /min Comm on [facility] blood pressure 2022-11-09 09:40:00 130 mm[Hg] Common [facility] - systolic [facility] blood pressure 2022-11-09 09:40:00 78 mm[Hg] Common [facility] diastolic [facility] height 2022-08-09 10:20:00 63.5 [in_i] [facility] weight 2022-08-09 10:20:00 172 [lb_av] [facility] temperature 2022-08-09 10:20:00 97.7 [degF] [facility] bmi 2022-08-09 10:20:00 29.99 kg/m2 [facility] oximetry 2022-08-09 10:20:00 97 % [facility] respiratory rate 2022-08-09 10:20:00 16 /min Comm on [facility] blood pressure 2022-08-09 10:20:00 138 mm[Hg] Common [facility] - systolic [facility] blood pressure 2022-08-09 10:20:00 84 mm[Hg] Common [facility] - diastolic [facility] height 2022-07-07 11:00:00 [facility] weight 2022-07-07 11:00:00 169.6 [lb_av] [facility] temperature 2022-07-07 11:00:00 97.1 [degF] [facility] bmi 2022-07-07 11:00:00 29.57 kg/m2 [facility] oximetry 2022-07-07 11:00:00 98 % [facility] respiratory rate 2022-07-07 11:00:00 16 /min Comm on [facility] blood pressure 2022-07-07 11:00:00 138 mm[Hg] Common [facility] - systolic [facility] blood pressure 2022-07-07 11:00:00 71 mm[Hg] [facility] - diastolic [facility] Systolic (mm Hg) 2018-06-13 12:04:00 Jeffery rial Daryl Diastolic (mm Hg) 2018-06-13 12:04:00 Mem orial [place] Heart Rate 2018-06-13 12:04:00 [facility] [place] Weight 2018-06-13 12:04:00 [facility] [place] BMI Calculated 2018-06-13 12:04:00 Memori al [place] Height 2018-06-13 12:04:00 162.56 cm [facility] [place] Temperature Oral (F) 2018-06-13 12:04:00 96.5 F [facility] [place] Weight 2018-01-24 19:40:00 [facility] [place] Systolic (mm Hg) 2018-01-24 19:40:00 Jeffery rial [place] Diastolic (mm Hg) 2018-01-24 19:40:00 Mem orial [place] Temperature Oral (F) 2018-01-24 19:40:00 98.6 F [facility] Heart Rate 2018-01-24 19:40:00 [facility] Height 2017-10-26 15:25:00 162.56 cm [facility] [place] Systolic (mm Hg) 2017-10-26 15:25:00 Jeffery rial Daryl Diastolic (mm Hg) 2017-10-26 15:25:00 Mem orial [facility] BMI Calculated 2017-10-26 15:25:00 Memori al [place] Weight 2017-10-26 15:25:00 [facility] Systolic (mm Hg) 2017-10-10 14:00:00 Jeffery rial Daryl Diastolic (mm Hg) 2017-10-10 14:00:00 Mem orial [place] Respitory Rate 2017-10-10 13:37:00 Memori al [place] Temperature Oral (F) 2017-10-10 13:37:00 97.9 F [facility] [place] BMI Calculated 2017-10-10 13:37:00 Memori al Daryl Weight 2017-10-10 13:37:00 [facility] [place] Heart Rate 2017-10-10 13:37:00 [facility] [place] Height 2017-10-10 13:37:00 162.56 cm [facility] [place] Systolic (mm Hg) 2017-10-10 13:37:00 Jeffery rial [place] Diastolic (mm Hg) 2017-10-10 13:37:00 Mem orial [place] Procedures Procedure Date / Time Performed Performing Clinician [facility] e Colonoscopy 2016-11-14 00:00:00 [facility] eliana Laparoscopic repair of [facility] Daryl hernia Encounters Start End Encounter Admission Attending Care Care Encounter Source Date/Time Date/Time Type Type Clinicians Facility Department ID 2023-04-06 Outpatient SADI Macias [facility] [id number] Common 11:53:00 Fadia 20802 [facility] 2023-02-09 [facility] [id number] Common 09:17:02 Fadia 22035 [facility] 2022-11-09 Outpatient SADI Macias [facility] [id number] Common 07:42:00 Fadia 04669 [facility] 2022-08-06 [facility] [id number] Common 10:38:01 Fadia 85585 [facility] 2022-07-08 Outpatient SADI Macias [facility] [id number] Common 10:06:04 Fadia [facility] 2022-07-[address] [facility] [id number] Common 10:50:06 Fadia 15116 [facility] 2022-11-09 2022-11-09 OFFICE STLMLC STLMLC [id number] Co mmon 00:00:00 00:00:00 VISIT EST Spir it PT LEVEL 3 [facility] 2022-08-25 2022-08-25 (TEL) STLMLC STLMLC [id number] Co mmon 00:00:00 00:00:00 [facility] 2022-08-09 2022-08-09 OFFICE STLMLC STLMLC [id number] Co mmon 00:00:00 00:00:00 VISIT EST Spir it PT LEVEL [address] [place] [address] 2022-07-27 2022-07-27 (TEL) STLMLC STLMLC [id number] Co mmon 00:00:00 00:00:00 [facility] 2022-07-07 2022-07-07 OFFICE STLMLC STLC [id number] Co mmon 00:00:00 00:00:00 VISIT NEW Spir it PT LEVEL 3 [facility] 2018-06-13 2018-06-14 [place] [id number] Memoria 12:00:00 04:59:59 r Primary 03 l [facility] 2018-06-13 2018-06-14 [place] [id number] Memoria 12:00:00 04:59:59 r Primary 03 l [facility] 2018-06-13 2018-06-13 Outpatient CORINA Benitez MG [id number] 07:00:00 23:59:59 Emiliana 03 2018-06-13 2018-06-13 Outpatient DARLINIE MHIE [id number] Memoria 07:00:00 07:00:00 03 l [place] 2018-01-24 2018-01-25 [place] [id number] Memoria 20:10:00 04:59:59 r Primary 02 l [facility] 2018-01-24 2018-01-25 [place] [id number] Memoria 20:10:00 04:59:59 r Primary 02 l [facility] 2018-01-24 2018-01-24 Outpatient Liana [facility] [id number] 15:10:00 23:59:59 Art L 02 2018-01-24 2018-01-24 Outpatient FAUSTINO HARMON [id number] Memoria 15:10:00 15:10:00 02 brielle Brito 2017-12-01 2017-12-03 Outside nullFlavo [facility] [id number] Memoria 21:53:00 05:59:59 Medical r Gastroenter 00 l Records ology [facility] 2017-12-01 2017-12-03 Outside nullFlavo [facility] [id number] Memoria 21:53:00 05:59:59 Medical r Gastroenter 00 l Records ology [facility] 2017-12-01 2017-12-02 Outpatient [facility] [id number] 15:53:00 23:59:59 00 2017-10-26 2017-10-27 Outpatient nullFlavo [facility] [id number] Memoria 15:40:00 05:59:59 r Gastroenter 01 l bulmaro Tariq 2017-10-26 2017-10-27 Outpatient nullFlavo [facility] [id number] Memoria 15:40:00 05:59:59 r Gastroenter 01 l ologstormy Tariq 2017-10-26 2017-10-26 Outpatient Nico [facility] [id number] 09:40:00 23:59:59 Jerecia Ana Laura 2017-10-26 2017-10-26 Outpatient FAUSTINO HARMON [id number] Memoria 09:40:00 09:40:00 01 brielle Brito 2017-10-10 2017-10-11 Outpatient nullFlavo [facility] [id number] Memoria 13:30:00 05:59:59 r Primary 00 l Care Daryl Yue 2017-10-10 2017-10-11 Outpatient nullFlavo [facility] [id number] Memoria 13:30:00 05:59:59 r Primary 00 l Care Daryl Aquilla 2017-10-10 2017-10-10 Outpatient Nico [facility] [id number] 07:30:00 23:59:59 Jerecia 00 Ana Laura 2017-10-10 2017-10-10 Outpatient FAUSTINO HARMON [id number] Memoria 07:30:00 07:30:00 00 brielle Brito 2017-09-14 2017-09-14 Outpatient C CAILIN, [facility] [id number] [facility] 11:37:00 23:59:00 MARCO A [facility] Results Test Description Test Time Test Comments Results Result Comments Source CARDIAC PROFILE 2017-08-22 11:56:00 Test Item Value Reference Range Interpretation Comme nts TROPONIN I (test code = A84) 0.038 ng/mL 0.000-0.045 CKMB (test code = A49) 1.2 ng/mL <=3.6 CPK (test code = 32A) 86 IU/L 39-308 LIPID [id number] 11:23:00 Test Item Value Reference Range Interpretation Comments CHOLESTROL (test code = 44A) 183 mg/dL 140-200 TRIGLYCERI (test code = 42B) 293 mg/dL <=149 H HDL (test code = 83D) 31.0 mg/dL 40.0-60.0 L LDL (test code = 34B) 111 mg/dL <=99 H CHL/HDL (test code = CHR) 5.9 0.0-3.4 H CARDIAC [id number] 08:30:00 Test Item Value Reference Range Interpretation [...] (test code = RBCMOR) NORMAL BASIC METABOLIC [id number] 06:43:00 Test Item Value Reference Range Interpretation [...] = 09D) 8.9 mg/dL 8.3-9.5 CT PE [id number] 22:53:31Exam: CT thorax PE protocol.Location: [id number]: CPTechnique: Enhanced spiral slices were taken fromthe [...] for pulmonary embolism.2. No acute disease.BRAIN NATRIURETIC [id number] 21:58:00 Test Item Value Reference Range Interpretation Comments proBNP (test code = PBNP) 14 pg/mL 0-125 COMPREHENSIVE METABOLIC [id number] 21:53:00 Test Item Value Reference Range Interpretation [...] code = 31A) 34 IU/L <=78 CARDIAC [id number] 21:53:00 Test Item Value Reference Range Interpretation Comments TROPONIN I (test code = A84) 0.046 ng/mL 0.000-0.045 H CKMB (test code = A49) 1.3 ng/mL <=3.6 CPK (test code = 32A) 115 IU/L 39-308 PRO TIME AND [id number] 21:49:00 Test Item Value Reference Range Interpretation [...] or LMW Heparin. Order Code is ANTI-XA [id number] 21:49:00 Test Item Value Reference Range Interpretation Comments D-DIMER (test code = 458 ng/mL D-DU 0-234 H DDI) D-DIMER COMMENT (test *Level to rule out code = DDCOM) DVT or PE: <235 ng/mL D-DU* XR CHEST 1 VIEW [id number] 21:36:09Exam: Chest portable erectLocation: [id number]: CPComparison: None.Findings:The lungs are clear. No infiltrate [...]
[2023-08-26 01:50] LABS: Absolute Lymphocytes (CBC) 3.3 K/uL (0.7-4.9); Hematocrit 37.2 % (39.6-49.0); Lymphocytes % 37.5 % (15.3-44.8); MCV 88.9 fL (80-100); MPV 7.2 fL (7.6-11.3); Platelets 336 thou/uL (152-406); RBC Red Blood Cell Count 4.18 M/uL (4.33-5.43)
[2023-08-26 01:53] LABS: Protime INR 1.06
[2023-08-26 02:11] LABS: ALT/SGPT 33 U/L (16-61); AST/SGOT 16 U/L (15-37); Albumin 3.4 g/dL (3.4-5.0); Alkaline Phosphatase 55 U/L (45-117); BUN Blood Urea Nitrogen 14 mg/dL (7-18); Bicarbonate 26 mEq/L (21-32); Bilirubin Total 0.3 mg/dL (0.2-1.0); Glomerular Filtration Rate 73 ml/min (=/>90); Glucose Level 113 mg/dL (74-106); NT PRO-BNP 971 pg/mL (<125); Potassium 3.7 mEq/L (3.5-5.1); Protein, Total 7.3 g/dL (6.4-8.2); Sodium Level 142 mEq/L (136-145)
[2023-08-26 02:14] LABS: Bilirubin Direct < 0.1 mg/dL (0-0.2); Bilirubin Indirect, Calculated ND mg/dL (0.2-0.8)
[2023-08-26 02:16] LABS: Troponin High Sensitivity 838.5 pg/mL (<58.9)
--- NOTE | 2023-08-26 05:40 | ER ---
Nurse's Notes [facility] Name: Hiram Schuster Age: 62 yrs Sex: Male : 1960 Arrival Date: 08/26/2023 Time: 01:03 Bed 8 Private MD: Diagnosis: Angina pectoris, elevated troponin level, status post coronary artery stenting Presentation: 08/26 01:17 Risk Assessment: Do you want to hurt yourself or someone else? Patient reports no ha1 desire to harm self or others. Onset of symptoms was August 26, 2023. 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 Patient stated had a heart attack on 08/09/23. 01:17 Coronavirus screen: Vaccine status: Patient reports being unvaccinated. Client denies 1 travel out of the [place] in the last 14 days. Client presents with at least one sign or symptom that may indicate coronavirus-19. Ebola Screen: Patient negative for fever greater than or equal to 101.5 degrees Fahrenheit, and additional compatible Ebola Virus Disease symptoms. Initial Sepsis Screen: Does the patient meet any 2 criteria? No. Patient's initial sepsis screen is negative. Does the patient have a suspected source of infection? No. Patient's initial sepsis screen is negative. 01:17 Method Of Arrival: Ambulatory pf1 Triage Assessment: 01:17 General: Appears uncomfortable, Behavior is cooperative. Pain: Complains of pain in ha1 chest and right upper shoulder. 01:17 Neuro: Level of Consciousness is awake, alert, obeys commands, Oriented to person, ha1 place, time, situation. Cardiovascular: Reports chest pain, shortness of breath, Patient's skin is warm and dry. Respiratory: Reports shortness of breath at rest Airway is patent Respiratory effort is even, unlabored, Respiratory pattern is regular, symmetrical, Onset: The symptoms/episode began/occurred suddenly, the patient has mild shortness of breath. GI: No signs and/or symptoms were reported involving the gastrointestinal system. Abdomen is round non-distended. Derm: Skin is pink, warm \T\ dry. Musculoskeletal: Circulation, motion, and sensation intact. Range of motion: intact in all extremities. Historical: - Allergies: 01:17 menthol; ha1 - PMHx: 01:17 Gastroesophageal reflux disease; Hypercholesterolemia; Hypertensive disorder; ha1 - Immunization history:: Adult Immunizations up to date, Client reports having NOT received the Covid vaccine. Last tetanus immunization: < 5 years ago Flu vaccine is not up to date. - Social history:: Smoking status: Patient/guardian denies using tobacco, Patient/guardian denies using alcohol, street drugs. - Family history:: not pertinent. Screenin:53 Abuse screen: Denies threats or abuse. Denies injuries from another. Nutritional ha1 screening: No deficits noted. Tuberculosis screening: No symptoms or risk factors identified. 02:51 [facility] ED Fall Risk Assessment (Adult) History of falling in the last 3 months, jw7 including since admission No falls in past 3 months (0 pts) Score/Fall Risk Level 0 - 2 = Low Risk Oriented to surroundings, Maintained a safe environment. Assessment: 01:17 Reassessment: see triage assessment. ha1 01:20 Cardiovascular: Rhythm is sinus rhythm. jw7 01:20 Respiratory: Airway is patent Trachea midline Respiratory effort is even, unlabored, jw7 Respiratory pattern is regular, symmetrical, Breath sounds are clear bilaterally. 02:00 Reassessment: Patient and/or family updated on plan of care and expected duration. Pain ha1 level reassessed. Patient is alert, oriented x 3, equal unlabored respirations, skin warm/dry/pink. 02:48 Reassessment: Patient appears in no apparent distress at this time. Patient and/or jw7 family updated on plan of care and expected duration. Pain level reassessed. Patient is alert, oriented x 3, equal unlabored respirations, skin warm/dry/pink. 04:02 Reassessment: Patient appears in no apparent distress at this time. Patient and/or jw7 family updated on plan of care and expected duration. Pain level reassessed. Patient is alert, oriented x 3, equal unlabored respirations, skin warm/dry/pink. Patient states feeling better. 05:28 Reassessment: Patient appears in no apparent distress at this time. No changes from jw7 previously documented assessment. Patient and/or family updated on plan of care and expected duration. Pain level reassessed. Patient is alert, oriented x 3, equal unlabored respirations, skin warm/dry/pink. 06:28 Reassessment: Patient appears in no apparent distress at this time. No changes from jw7 previously documented assessment. Patient and/or family updated on plan of care and expected duration. Pain level reassessed. Patient is alert, oriented x 3, equal unlabored respirations, skin warm/dry/pink. 07:50 Reassessment: Attempted to call report to second floor, no answer at nurse's station. ph 08:12 Reassessment: Attempted to call report, receiving nurse to call back. ph 08:19 Reassessment: Patient appears in no apparent distress at this time. Patient and/or ph family updated on plan of care and expected duration. Pain level reassessed. Patient is alert, oriented x 3, equal unlabored respirations, skin warm/dry/pink. Report called to MAYRA Asif. Vital Signs: 01:17 BP 141 / 73; Pulse 64; Resp 18; Temp 98.2; Pulse Ox 97% on R/A; Weight 77.11 kg; Height pf1 5 ft. 5 in. ; Pain 11/23; 01:52 BP 141 / 73; Pulse 71; Resp 18 S; Pulse Ox 98% on R/A; ha1 02:48 BP 114 / 79; Pulse 67; Resp 16 S; Pulse Ox 99% on R/A; jw7 03:30 BP 122 / 76; Pulse 73; Resp 22 S; Pulse Ox 98% on R/A; jw7 04:30 BP 130 / 76; Pulse 67; Resp 19 S; Pulse Ox 98% on R/A; jw7 05:35 BP 120 / 77; Pulse 74; Resp 17 S; Pulse Ox 98% on R/A; ha1 06:29 BP 117 / 73; Pulse 69; Resp 18 S; Pulse Ox 98% on R/A; jw7 07:25 BP 120 / 75; Pulse 71; Resp 18; Pulse Ox 97% on R/A; ph 01:17 Body Mass Index 28.29 (77.11 kg, 165.1 cm) pf1 01:17 Pain Scale: Adult pf1 ED Course: 01:08 Patient arrived in ED. gm2 01:20 Arm band placed on. jw7 01:20 Patient has correct armband on for positive identification. Bed in low position. Call [facility] light in reach. 01:30 Inserted saline lock: 22 gauge in left antecubital area, using aseptic technique. Blood ha1 collected. 01:50 Basic Metabolic Panel Sent. ha1 01:50 CBC with Diff Sent. ha1 01:50 LFT's Sent. ha1 01:50 Magnesium Sent. ha1 01:50 NT PRO-BNP Sent. ha1 01:50 PT-INR Sent. ha1 01:50 Troponin HS Sent. ha1 01:53 Tanmay Rodgers MD is Attending Physician. sp4 01:54 Triage completed. ha1 02:17 XRAY Chest (1 view) In Process Unspecified. EDMS 02:48 COVID-19 SARS RT PCR Sent. jw7 02:48 Influenza Screen (a \T\ B) Sent. jw7 05:39 Alessandro Dugan MD is Hospitalizing Provider. sp4 05:[address], RN is Primary Nurse. ha1 07:46 No provider procedures requiring assistance completed. Patient admitted, IV remains in ph place. Administered Medications: No medications were administered Medication: 05:36 VIS not applicable for this client. ha1 Outcome: 05:39 Decision to Hospitalize by Provider. sp4 08:20 Admitted to Tele accompanied by tech, via wheelchair, room 229, with chart, Report ph called to Laya NUNEZ 08:20 Condition: good 08:20 Instructed on the need for admit, 08:47 Patient left the ED. ph Signatures: Dispatcher [employer] EDLA Lavinia Veras RN RN ph Waits, Jodi, RN RN jw7 [address], hSabnam Barrios RN, RN RN pf1 Potepalov, Sergey, MD MD sp4 Elysia Esquivel [facility] [employer]
--- NOTE | 2023-08-26 05:40 | EDPHYS ---
Physician Documentation [facility] Name: Hiram Schuster Age: 62 yrs Sex: Male : 1960 Arrival Date: 08/26/2023 Time: 01:03 Bed 8 Private MD: ED Physician Tanmay Rodgers HPI: 08/26 01:53 This 62 yrs old Male presents to ER via Unassigned with complaints of sp4 Shortness Of Breath, Chest Tightness, Other. 01:55 PMH - Historical: Allergies: menthol; PMHx: Hypercholesterolemia; Hypertensive sp4 disorder; Gastroesophageal reflux disease; NSTEMI recent admission . 05:40 Procedure history - Date of Procedure: 08/10/2023 Surgeon: SONU CORONEL Procedures sp4 Performed: 1. Selective coronary angiogram. 2. Left heart catheterization. 3. PCI of 100% occlusion of the proximal left circumflex, which is 1 of the culprit. I used 2.5 x 20 mm Synergy drug-eluting stent. 4. PCI of critical mid LAD 99% stenosis, likely is a culprit also with SC and I used 3.0 x 20 mm Synergy drug-eluting stent, post dilated to 3.25 x 8 mm NC balloon. 5. PCI of critical mid RCA 99% stenosis and the proximal RCA to 90% stenosis. I used 3.5 x 48 mm Synergy drug-eluting stent. Indication: Non-ST elevation myocardial infarction. Access: 1. Right femoral artery 6-Northern Irish closed with 6-Northern Irish Angio-Seal. 2. Right radial artery 6-Northern Irish closed with TR band. . Patient presents after he developed some persistent chest pressure starting 2 days ago associated with fatigue with physical exertion. Patient was admitted on 08/09/2023 with diagnosis of NSTEMI. Patient underwent coronary angiography/left heart cath on 08/10/2023 see results above, with stenting of proximal left circumflex, left anterior descending, and also right coronary artery. Patient was subsequently discharged on 08/13/2023. Percutaneous coronary intervention was successful and patient was discharged home with aspirin 81 mg daily, metoprolol 12.5 mg twice daily, Brilinta 90 mg twice daily, atorvastatin 40 mg at bedtime for also omeprazole 40 mg daily, Tricor 160 mg daily. Patient now presents with persistent chest pressure for the past 2 days.. Historical: - Allergies: 01:17 menthol; ha1 - PMHx: 01:17 Gastroesophageal reflux disease; Hypercholesterolemia; Hypertensive disorder; ha1 - Immunization history:: Adult Immunizations up to date, Client reports having NOT received the Covid vaccine. Last tetanus immunization: < 5 years ago Flu vaccine is not up to date. - Social history:: Smoking status: Patient/guardian denies using tobacco, Patient/guardian denies using alcohol, street drugs. - Family history:: not pertinent. ROS: 05:40 Constitutional: Negative for fever, chills, and weight loss, Cardiovascular: Negative sp4 for palpitations, and edema, positive chest pressure, positive fatigue with exertion 05:40 All other systems are negative, Exam: 05:40 Constitutional: This is a well developed, well nourished patient who is awake, alert, sp4 and in no acute distress. Head/Face: Normocephalic, atraumatic. Eyes: Pupils equal round and reactive to light, extra-ocular motions intact. Lids and lashes normal. Conjunctiva and sclera are not injected. Cornea within normal limits. Periorbital areas with no swelling, redness, or edema. ENT: Nares patent. No nasal discharge, no septal abnormalities noted. Tympanic membranes are normal and external auditory canals are clear. Oropharynx with no redness, swelling, or masses, exudates, or evidence of obstruction, uvula midline. Mucous membranes moist. Neck: Trachea midline, no thyromegaly or masses palpated, and no cervical lymphadenopathy. Supple, full range of motion without nuchal rigidity, or vertebral point tenderness. Chest/axilla: Normal chest wall appearance and motion. Nontender with no deformity. No lesions are appreciated. Cardiovascular: Regular rate and rhythm with a normal S1 and S2. No gallops, murmurs, or rubs. Normal PMI, no JVD. No pulse deficits. Respiratory: Lungs have equal breath sounds bilaterally, clear to auscultation and percussion. No rales, rhonchi or wheezes noted. No increased work of breathing, no retractions or nasal flaring. Abdomen/GI: Soft, non-tender, with normal bowel sounds. No distension or tympany. No guarding or rebound. No evidence of tenderness throughout. Back: No spinal tenderness. No costovertebral tenderness. Skin: Warm, dry with normal turgor. Normal color with no rashes, no lesions, and no evidence of cellulitis. MS/ Extremity: Pulses equal, no cyanosis. Neurovascular intact. Full, normal range of motion. Neuro: Awake and alert, GCS 15, oriented to person, place, time, and situation. Cranial nerves II-XII grossly intact. Motor strength 5/5 in all extremities. Sensory grossly intact. Psych: Awake, alert, with orientation to person, place and time. Behavior, mood, and affect are within normal limits 05:40 ECG was reviewed by the Attending Physician. EKG time 0 134, there is normal sinus rhythm at a rate of 65, no ST elevation or depression, no ectopy. Inverted T wave V6 Vital Signs: 01:17 BP 141 / 73; Pulse 64; Resp 18; Temp 98.2; Pulse Ox 97% on R/A; Weight 77.11 kg; Height pf1 5 ft. 5 in. ; Pain 11/23; 01:52 BP 141 / 73; Pulse 71; Resp 18 S; Pulse Ox 98% on R/A; ha1 02:48 BP 114 / 79; Pulse 67; Resp 16 S; Pulse Ox 99% on R/A; jw7 03:30 BP 122 / 76; Pulse 73; Resp 22 S; Pulse Ox 98% on R/A; jw7 04:30 BP 130 / 76; Pulse 67; Resp 19 S; Pulse Ox 98% on R/A; jw7 05:35 BP 120 / 77; Pulse 74; Resp 17 S; Pulse Ox 98% on R/A; ha1 06:29 BP 117 / 73; Pulse 69; Resp 18 S; Pulse Ox 98% on R/A; jw7 07:25 BP 120 / 75; Pulse 71; Resp 18; Pulse Ox 97% on R/A; ph 01:17 Body Mass Index 28.29 (77.11 kg, 165.1 cm) pf1 01:17 Pain Scale: Adult pf1 MDM: 01:53 Patient medically screened. sp4 05:31 ED course: Chest - TECHNIQUE: Single portable x-ray view of the chest performed on sp4 08/26/2023 at 1:57 AM FINDINGS: The lungs are well expanded and are clear. There is no evidence of a pneumothorax. The radiograph is somewhat lordotic in position. The cardiac silhouette is normal in size and configuration. The mediastinal contours are normal. No acute osseous abnormality is identified. No acute soft tissue abnormalities are seen. Lines and tubes: None. Free air: None IMPRESSION: No evidence of acute intrathoracic disease.. 05:46 Differential diagnosis: Anemia Anxiety Reaction CHF exacerbation, Chronic Obstructive sp4 Pulmonary Disease Myocardial Infarction pneumonia. Antibiotic administration: Not indicated. Data reviewed: vital signs, nurses notes, old medical records, lab test result(s), EKG, radiologic studies, plain films. Consideration of Admission/Observation Patient was admitted/placed on observation. Escalation of care including admission/observation considered. Management of patient was discussed with the following: Hospitalist: Discussed with admitting team. ED course: Secondary to persistent chest pressure and elevated troponin patient warrants admission for observation. Possible cardiology consult. . 08/26 01:37 Order name: Basic Metabolic Panel; Complete Time: 05:30 08/26 01:37 Order name: CBC with Diff; Complete Time: 05:30 08/26 01:37 Order name: LFT's; Complete Time: 05:30 08/26 01:37 Order name: Magnesium; Complete Time: 05:30 08/26 01:37 Order name: NT PRO-BNP; Complete Time: 05:30 08/26 01:37 Order name: PT-INR; Complete Time: 05:30 08/26 01:37 Order name: Troponin HS; Complete Time: 05:30 08/26 01:54 Order name: COVID-19 SARS RT PCR; Complete Time: 05:30 08/26 01:54 Order name: Influenza Screen (a \T\ B); Complete Time: 05:30 08/26 05:50 Order name: Troponin High Sensitivity la1 08/26 01:37 Order name: XRAY Chest (1 view) 08/26 01:37 Order name: EKG; Complete Time: 01:38 08/26 01:37 Order name: Cardiac monitoring; Complete Time: 01:47 08/26 01:37 Order name: EKG - Nurse/Tech; Complete Time: 01:46 08/26 01:37 Order name: IV Saline Lock; Complete Time: 01:49 08/26 01:37 Order name: Labs collected and sent; Complete Time: 01:49 08/26 01:37 Order name: O2 Per Protocol; Complete Time: :46 as6 08/26 01:37 Order name: O2 Sat Monitoring; Complete Time: : EC:40 Rate is 65 beats/min. Rhythm is regular, Normal Sinus Rhythm. QRS [place] is Normal. IN sp4 interval is normal. QRS interval is normal. QT interval is normal. No Q waves. T waves are Inverted in lead V6. No ST changes noted. Clinical impression: No evidence of ischemia. Interpreted by me. Administered Medications: No medications were administered Disposition Summary: 08/26/23 05:39 Hospitalization Ordered Notes: Hospitalization Status: Observation sp4 Provider: Alessandro Dugan Location: Telemetry/MedSurg (observation) sp4 Condition: Stable sp4 Problem: new sp4 Symptoms: are unchanged sp4 Bed/Room Type: Standard sp4 Room Assignment: 229(08/26/23 07:40) eb Diagnosis - Angina pectoris, elevated troponin level, status post coronary artery stenting sp4 Forms: - Medication Reconciliation Form sp4 - SBAR form sp4 - Leadership Thank You Letter sp4 Signatures: Dispatcher [employer] Ilsa Perez Ashby, RN RN as6 Niya Street RN RN Shabnam Adam RN RN pf1 Tanmay Rodgers MD MD sp4 Corrections: (The following items were deleted from the chart) 07:40 05:39 sp4 eb
--- NOTE | 2023-08-26 06:06 | P.HP ---
Certification for Inpatient Patient admitted to: Observation With expected LOS: <2 Midnights Patient will require the following post-hospital care: None Practitioner: I am a practitioner with admitting privileges, knowledge of patient current condition, hospital course, and medical plan of care. Services: Services provided to patient in accordance with Admission requirements found in Title 42 Section 412.3 of the Code of Federal Regulations <Charles Rai - Last Filed: 08/26/23 05:57> Patient History Date of Service: 08/26/23 Reason for admission: Chest pain History of Present Illness: 62-year-old male with history of hyperlipidemia, GERD, CAD with recent stent placement presents to the emergency department chief complaint of intermittent chest pain. He was seen here and admitted on 08/09/2023 and subsequently discharged on 08/13/2023 after having 3 stents placed. He had been doing well since then until the last 2 days and has been experiencing intermittent chest pressure. He feels as if the episodes of chest pressure are related to exertion, complains of mild shortness of breath. He was evaluated in the emergency department his labs were significant for initial high sensitive troponin of 838.5 EKG without STEMI criteria chest x-ray unremarkable, his last measured troponin during his admission was greater than 125,000. He has been compliant with his aspirin and Brilinta not missing any doses. Given his chest pain and elevated troponin ED provider wishes to admit for further evaluation and management. - Past Medical/Surgical History -: HLD -: GERD -: HTN -: CAD -: Hernia Psychosocial/ Personal History: Lives at home with - Family History Father -: Heart disease Brother -: Heart disease - Social History Smoking Status: Former smoker Alcohol use: No CD- Drugs: No Caffeine use: Yes Place of Residence: Home <Charles Rai - Last Filed: 08/26/23 05:57> Date of Service: 08/26/23 <Moris Pacheco - Last Filed: 08/26/23 17:26> Allergies No Known Allergies Allergy (Unverified 08/09/23 18:40) Home Medications: Fenofibrate [Tricor*] 160 mg PO DAILY 08/10/23 Omeprazole [Prilosec] 40 mg PO ACB PRN 08/10/23 Aspirin [Aspirin EC 81 MG] 81 mg PO DAILY 30 Days #30 tab 08/13/23 Atorvastatin Calcium [Lipitor] 40 mg PO BEDTIME 30 Days #30 tab 08/13/23 Metoprolol Tartrate [Lopressor*] 0.5 tab PO BID 30 Days #30 tab 08/13/23 Ticagrelor [Brilinta*] 90 mg PO BID 30 Days #60 tab 08/13/23 Review of Systems 10-point ROS is otherwise unremarkable Cardiovascular: Chest Pain <Charles Rai - Last Filed: 08/26/23 05:57> Physical Examination - Physical Exam General: Alert, In no apparent distress, Oriented x3 HEENT: Atraumatic, PERRLA, Mucous membr. moist/pink, EOMI, Sclerae nonicteric Neck: Supple, 2+ carotid pulse no bruit, No LAD, Without JVD or thyroid abnormality Respiratory: Clear to auscultation bilaterally, Normal air movement Cardiovascular: Regular rate/rhythm, Normal S1 S2 Capillary refill: <2 Seconds Gastrointestinal: Normal bowel sounds, No tenderness Musculoskeletal: No tenderness Integumentary: No rashes Neurological: Normal speech, Normal strength at 5/5 x4 extr, Normal tone, Normal affect - Studies Laboratory Data (last 24 hrs) 08/26/23 08/26/23 08/26/23 01:40 01:40 01:40 WBC 8.70 Hgb 13.2 L Hct 37.2 L Plt Count 336 PT 11.7 INR 1.06 Sodium 142 Potassium 3.7 BUN 14 Creatinine 1.13 Glucose 113 H Magnesium 2.0 Total Bilirubin 0.3 AST 16 ALT 33 Alkaline Phosphatase 55 Microbiology Data (last 24 hrs): 08/26/23 02:43 Nasopharnyx Influenza Type A Antigen Screen - Final 08/26/23 02:43 Nasopharnyx Influenza Type B Antigen Screen - Final <Charles Rai - Last Filed: 08/26/23 05:57> - Studies Laboratory Data (last 24 hrs) 08/26/23 08/26/23 08/26/23 01:40 01:40 01:40 WBC 8.70 Hgb 13.2 L Hct 37.2 L Plt Count 336 PT 11.7 INR 1.06 Sodium 142 Potassium 3.7 BUN 14 Creatinine 1.13 Glucose 113 H Magnesium 2.0 Total Bilirubin 0.3 AST 16 ALT 33 Alkaline Phosphatase 55 Microbiology Data (last 24 hrs): 08/26/23 02:43 Nasopharnyx Influenza Type A Antigen Screen - Final 08/26/23 02:43 Nasopharnyx Influenza Type B Antigen Screen - Final <Moris Pacheco - Last Filed: 08/26/23 17:26> Assessment and Plan - Plan Assessment: Chest pain, elevated troponin-recent PCI/CAD Hyperlipidemia Hypertension Plan: Chest pain, elevated troponin-recent PCI/CAD Complains of chest pressure, possibly exertional in nature otherwise nonreproducible mild in nature with associated shortness of breath. Recent PCI with 3 stents placed, has been compliant with medications including aspirin, Brilinta, statin, metoprolol. Initial troponin elevated around 800 although last measured troponin was greater than 125,000 could possibly still be downtrending, will order repeat troponin for now. Hyperlipidemia Hypertension Home medications have been continued. DVT PPX: Lovenox Code status:Full Discharge Plan: Home Plan to discharge in: 24 Hours - Advance Directives Does patient have a Living Will: No Does patient have a Durable POA for Healthcare: Yes - Code Status/Comfort Care Code Status Assessed: Yes (Full code) Critical Care: No Time Spent Managing Pts Care (In Minutes): 55 <Charles Rai - Last Filed: 08/26/23 05:57> - Plan Patient seen on rounds this morning feeling slightly better, less chest pressure, but not ambulating as much since admission continue home meds as above cardio consult trop likely residual from recent NSTEMI <Moris Pacheco - Last Filed: 08/26/23 17:26>
[2023-08-26] MEDS ORDERED: ONDANSETRON 4 MG/2 ML VIAL IV PRN (09:01)
[2023-08-26 09:11] VITALS: BMI 28.3
[2023-08-26] MEDS: ENOXAPARIN 40 MG/0.4 ML SQ SCH (09:19)
--- NOTE | 2023-08-26 13:49 | EKG ---
Test Date: 2023-08-26 Test Time: 01:34:21 [place] Operator: ARIE MEASUREMENT RESULTS: Intervals: Rate: 65 VA: 156 QRSD: 84 QT: 380 QTc: 395 [place]: P: 39 VA: 156 QRS: 9 T: -73 INTERPRETIVE STATEMENTS: Normal sinus rhythm Nonspecific T wave abnormality Abnormal ECG Compared to ECG 08/09/2023 13:12:02 T-wave abnormality now present ST (T wave) deviation no longer present Electronically Signed On 08-26-23 13:48:54 CDT by Dave Aldana
--- NOTE | 2023-08-26 15:37 | RAD REPORT ---
EXAM DESCRIPTION: RAD - Chest Single View - 08/26/2023 2:15 am CLINICAL HISTORY: 62 years Male, CHEST PAIN COMPARISON: Chest x-ray report from 08/03/2023. The image was not available for review. TECHNIQUE: Single portable x-ray view of the chest performed on 08/26/2023 at 1:57 AM FINDINGS: The lungs are well expanded and are clear. There is no evidence of a pneumothorax. The rad iograph is somewhat lordotic in position. The cardiac silhouette is normal in size and configuration. The mediastinal contours are normal. No acute osseous abnormality is identified. No acute soft tissue abnormalities are seen. Lines and tubes: None. Free air: None IMPRESSION: No evidence of acute intrathoracic disease. Electronically signed by: Elissa Hassan DO 08/26/2023 2:34 AM CDT Due to temporary technical issues with the PACS/Fluency reporting system, reports are being signed by the in house radiologists without review as a courtesy to insure prompt reporting. The interpreting radiologist is fully responsible for the content of the report.
--- NOTE | 2023-08-26 20:04 | CON ---
Date of Consultation: 08/26/2023 Reason For Consultation: Chest pain. History Of Present Illness: A 62-year-old male with history of coronary artery disease status post m ultivessel PCI recently, comes in with chest pain, intermittent, pressure-like, radiates to the shoul alejandra. Troponin is borderline elevated, but recently troponin was in the 125,000 range and now down to 838. Past Medical History: Coronary artery disease, dyslipidemia, hypertension. Medications: Refer to reconciliation sheet for detailed list. Allergies: NO KNOWN DRUG ALLERGIES. Family History: No premature coronary artery disease or cancer. Social History: Does not smoke or drink. Does not use drugs. Review of Systems: All systems reviewed and they were negative except what mentioned in HPI. Physical Examination: Vital signs: Reviewed. Head and Neck: Pupils are equal, reactive to light. Intact eye movements. No JVD. No cervical lym phadenopathy. Neck: Supple. Thyroid is not enlarged. Lungs: Clear to auscultation bilaterally. No rhonchi, rales, or crackles. No accessory muscle use. Heart: Regular rate and rhythm. No extra sounds. Abdomen: Soft, nontender. Bowel sounds positive. No organomegaly. No masses or hernia. No rigidi ty or rebound. Extremities: No edema, clubbing, or cyanosis. Intact pulses. Skin: No rash. Neurologic: Alert, awake, oriented x3. No cervical or axillary lymphadenopathy. Investigations: Labs were reviewed. Assessment/recommendations: 1.Chest pain with elevated troponin. This troponin could be a residual troponin elevation from his recent major heart attack that he had; however, admit start him on IV heparin. Continue Brilinta and aspirin and plan for coronary angiogram on Tuesday. 2.Dyslipidemia. Continue statin. 3.Hypertension. Pressure is controlled. Continue current management. SR/MODL Voice ID: [id number] Report ID: [id number]
[2023-08-26] MEDS: ATORVASTATIN 40 MG TAB PO SCH (21:41)
[2023-08-26] MEDS: TICAGRELOR 90 MG TABLET PO SCH (21:41)
[2023-08-27 03:07] LABS: Absolute Lymphocytes (CBC) 3.4 K/uL (0.7-4.9); Hematocrit 37.5 % (39.6-49.0); Lymphocytes % 36.7 % (15.3-44.8); MCV 89.5 fL (80-100); MPV 7.5 fL (7.6-11.3); Platelets 315 thou/uL (152-406); RBC Red Blood Cell Count 4.19 M/uL (4.33-5.43)
[2023-08-27 03:38] LABS: Potassium 3.7 mEq/L (3.5-5.1)
--- NOTE | 2023-08-27 06:58 | P.PN ---
Date of Service: 08/27/23 Subjective: Feeling better today denies chest pain; breathing okay no new / worsening problems plan for tentative heart cath on tuesday ROS: 10 point ROS as noted above, otherwise negative Physical Exam: GEN: Alert, oriented, NAD HEENT: Normal conjunctiva, sclera anicteric CV: Regular rate and rhythm, no edema Pulm: Nonlabored respirations on room air, clear bilaterally ABD: Soft, nontender, nondistended Neuro: Normal speech, normal affect vitals reviewed Problem List: NSTEMI Severe multivessel CAD s/p PCI x3 (08/10) Hyperlipidemia Hypertension GERD NSTEMI Severe multivessel CAD s/p PCI x3 (08/10) patient with chest pressure; nonreproducible mild in nature with associated SOB s/p recent PCI x3 08/10 (last hospitalization) reports being compliant with all medications trend troponins - 838 -> 859 -> 800; monitor on tele Cardiology consulted continue aspirin, brilinta tentative plan for heart cath on tuesday (08/29) Hyperlipidemia Hypertension GERD continue statin, metoprolol, other home medications as appropriate VTE: Lovenox for now Code: Full Dispo: Home Pending heart cath, ~earliest tuesday
[2023-08-27] MEDS: ENOXAPARIN 40 MG/0.4 ML SQ SCH (08:51)
[2023-08-27] MEDS: TICAGRELOR 90 MG TABLET PO SCH ×2 (08:51→21:12)
[2023-08-27] MEDS: ASPIRIN EC 81 MG TAB PO SCH (08:51)
[2023-08-27] MEDS ORDERED: FENOFIBRATE 160 MG TAB PO SCH (09:00)
--- NOTE | 2023-08-27 13:47 | PN ---
Date of Progress Note: 08/27/2023 Subjective: Seen by bedside. No further chest pain. Review of Systems: No chest pain, nausea, vomiting, or diarrhea. No dysuria, polyuria, or urinary urgency. No skin janae h. No headache. No other systems were reviewed, they were negative. Objective: Vital Signs: Reviewed. Head and Neck: Pupils are equal, reactive to light. Intact eye movements. No JVD. No cervical lym phadenopathy. Neck is supple. Thyroid is not enlarged. Lungs: Clear to auscultation bilaterally. No rhonchi, wheezing, or crackles. No accessory muscle u se. Heart: Regular rate and rhythm. No extra sounds. Abdomen: Soft, nontender. Bowel sounds positive. No organomegaly. No masses or hernia. No rigidi ty or rebound. Extremities: No edema, clubbing, or cyanosis. Intact pulses. Skin: No rash. No nodule. Neurologic: Alert, awake, oriented x3. No acute focal deficits appreciated. Investigations: Troponin down to 734. Assessment And Recommendations: 1.Chest pain with elevated troponin suggestive of [id number] myocardial infarction. Continue aspirin for now. He is chest pain free. Aspirin and Brilinta, and plan for coronary angiogram on Mo nday. 2.Dyslipidemia. Continue statin. Discontinue TriCor. 3.Acute renal failure. I will discontinue TriCor. Re-evaluate labs in the morning. /FIDEL Voice ID: [id number] Report ID: [id number]
[2023-08-27] MEDS: ATORVASTATIN 40 MG TAB PO SCH (21:13)
[2023-08-27] MEDS: METOPROLOL TAR 25 MG TAB PO SCH (21:13)
[2023-08-28 03:08] LABS: Hematocrit 38.6 % (39.6-49.0); Lymphocytes % 34.2 % (15.3-44.8); MCV 89.6 fL (80-100); MPV 7.4 fL (7.6-11.3); Platelets 296 thou/uL (152-406); RBC Red Blood Cell Count 4.31 M/uL (4.33-5.43)
[2023-08-28 03:21] LABS: Potassium 3.8 mEq/L (3.5-5.1)
--- NOTE | 2023-08-28 07:09 | P.PN ---
Date of Service: 08/28/23 Subjective: Feeling better today denies chest pain / pressure breathing okay on room air no acute events overnight pending tentative heart cath tomorrow ROS: 10 point ROS as noted above, otherwise negative Physical Exam: GEN: Alert, oriented, NAD HEENT: Normal conjunctiva, sclera anicteric CV: Regular rate and rhythm, no edema Pulm: Nonlabored respirations on room air, clear bilaterally ABD: Soft, nontender, nondistended Neuro: Normal speech, normal affect vitals reviewed Problem List: NSTEMI Severe multivessel CAD s/p PCI x3 (08/10) Hyperlipidemia Hypertension GERD NSTEMI Severe multivessel CAD s/p PCI x3 (08/10) patient with chest pressure; nonreproducible mild in nature with associated SOB no chest pain since day of admission; breathing is okay on room air currently s/p recent PCI x3 08/10 (last hospitalization) reports being compliant with all medications trend troponins - 838 -> 859 -> 800 -> 735; monitor on tele Cardiology consulted continue aspirin, brilinta tentative plan for heart cath on tuesday (08/29) Hyperlipidemia Hypertension GERD continue statin, metoprolol, other home medications as appropriate VTE: Lovenox for now Code: Full Dispo: Home Pending heart cath, ~earliest tuesday
[2023-08-28] MEDS: TICAGRELOR 90 MG TABLET PO SCH ×2 (10:16→21:05)
[2023-08-28] MEDS: METOPROLOL TAR 25 MG TAB PO SCH ×2 (10:16→21:05)
[2023-08-28] MEDS: ENOXAPARIN 40 MG/0.4 ML SQ SCH (10:17)
[2023-08-28] MEDS: ASPIRIN EC 81 MG TAB PO SCH (10:17)
[2023-08-28] MEDS: ATORVASTATIN 40 MG TAB PO SCH (21:06)
[2023-08-29] MEDS: ASPIRIN EC 81 MG TAB PO SCH (05:00)
[2023-08-29] MEDS: TICAGRELOR 90 MG TABLET PO SCH (05:01)
[2023-08-29] MEDS: ENOXAPARIN 40 MG/0.4 ML SQ SCH (06:05)
[2023-08-29] MEDS ORDERED: HEPA 1000U/500MLS 2,000 UNIT/1,000 ML BAG IV ONE (06:47)
[2023-08-29] MEDS ORDERED: MIDAZOLAM HCL 2 MG/2 ML INJ ONE (06:48)
[2023-08-29] MEDS ORDERED: FENTANYL CITR 100 MCG/2 ML ONE (06:48)
[2023-08-29] MEDS ORDERED: VERAPAMIL HCL 10 MG/4 ML VIAL IV ONE (06:48)
[2023-08-29] MEDS ORDERED: HEPARIN 5000 UNIT/ML 1 ML VIAL ONE (06:48)
[2023-08-29] MEDS ORDERED: NITROGLYCERIN 100 MCG/ML SYR (for cath lab use only) IV ONE (06:49)
[2023-08-29] MEDS ORDERED: ATROPINE SULF 1 MG/10 ML SYR IV ONE (06:49)
[2023-08-29] MEDS ORDERED: NITROGLYCERIN/D5W 25 MG/250 ML BTL IV ONE (06:49)
[2023-08-29] MEDS ORDERED: HEPARIN 10,000 UNIT/10 ML VIAL IV ONE (06:49)
[2023-08-29] MEDS ORDERED: LIDOCAINE 1% 20 ML MDV ONE (06:49)
[2023-08-29] MEDS ORDERED: TICAGRELOR 90 MG TABLET PO ONE (06:49)
[2023-08-29] MEDS ORDERED: NA CHLORIDE 0.9% 500 ML ONE (07:05)
[2023-08-29] MEDS: METOPROLOL TAR 25 MG TAB PO SCH (09:00)
[2023-08-29 09:07] VITALS: TEMP 98
[2023-08-29 09:09] VITALS: O2SAT 95
--- NOTE | 2023-08-29 09:33 | PN ---
Date of Progress Note: 08/29/2023 Subjective: Seen by bedside. No further chest pain throughout the weekend. Review of Systems: No chest pain, shortness of breath, orthopnea, or cough. No nausea, vomiting, diarrhea. All other s ystems reviewed and they are negative. Physical Examination: Vital Signs: Reviewed. Head and Neck: Pupils are equal, reactive to light. Intact eye movements. No JVD. No cervical lym phadenopathy. Neck is supple. Thyroid is not enlarged. Lungs: Clear to auscultation bilaterally. No rhonchi, wheezing, or crackles. No accessory muscle u se. Heart: Regular rate and rhythm. No extra sounds. Abdomen: Soft, nontender. Bowel sounds positive. No organomegaly. No masses or hernia. No rigidi ty or rebound. Extremities: No clubbing or cyanosis. Intact pulses. Skin: No rash or nodules. Neurologic: Alert, awake, oriented x3. No acute focal deficits appreciated. Investigations: Labs were reviewed. Assessment And Recommendations: 1.Non-ST elevation myocardial infarction. Probably . Plan for coronary angiogram and PCI as indicated. Continue Brilinta and aspirin. 2.Dyslipidemia. Continue statin. 3.Hypertension. Blood pressure is controlled. Continue current management. SR/MODL Voice ID: [id number] Report ID: [id number]
[2023-08-29 10:14] VITALS: BP 112/61
--- NOTE | 2023-08-29 12:42 | OP ---
Date of Procedure: 08/29/2023 Surgeon: SONU CORONEL Procedures Performed: 1.Selective coronary angiogram. 2.Left heart catheterization. 3.PCI of the proximal severe right PDA stenosis, which is the culprit. I used 2.5 x 12 mm Synergy d rug-eluting stent. Indication: [id number] myocardial infarction. Access: Right radial artery 6-Romansh successfully closed with TR band. Complications: None. Bleeding: Less than 20 mL. Anesthesia: Total sedation time was 45 minutes. Description Of Procedure: After risks, benefits, alternatives were explained, patient agreed to proc edure and signed informal consent. Patient was brought into the cardiac catheterization laboratory, prepped and draped in the usual sterile fashion and then accessed right radial artery using pediatric micropuncture kit, placed 6-Romansh Slender sheath and took 5-Romansh Erie 4.0 catheter into the aort ic root over a J-wire, engaged left main, took standard views, into the RCA and took standard views a nd then the catheter was pushed over the wire into the LV, measured the LVEDP. Pullback did not alonso rd any gradient. Then I gave systemic heparin to assure ACT level above 250 throughout the procedure . Then I took a 6-Romansh JR4 guide over a J-wire into the aortic root, engaged the RCA and then took Runthrough wire into the RCA, placed it distally through the PDA. Lesion was re-dilated using the 2 .5 x 8 mm balloon. Lesion expanded very well and then I placed a 2.5 x 12 [address] Synergy drug-eluting st ent across the area of stenosis with excellent expansion and 0% residual stenosis. Then, I removed t he wire. Final angiogram was satisfactory. I removed the guide and the sheath and placed TR band wi th good hemostasis. Findings: 1.Left main; normal. 2.LAD; proximal 50% to 60% and then mid, there is a widely patent stent. Then, the LAD becomes norm al distally. There is focal 80% but the vessel becomes small. Diagonal 1 branch has ostial 60% to 7 0%. 3.Left circumflex; has a stent that extends from the circumflex to the OM widely patent. 4.RCA; large and dominant. Proximal stent is widely patent and then the RCA is normal and the PDA h as proximal 90% very hazy, likely the culprit of the non-STEMI, status post successful PCI as above. 5.Normal LVEDP at 15 mmHg. Conclusion: 1.Severe right PDA stenosis, which is the culprit, status post successful PCI as above. 2.Moderate coronary artery disease elsewhere, exception is the distal LAD, it is severe, but small v essel. Will be left to medical management for now. Plan: Aspirin, Brilinta, and high-dose statin. SR/MODL Voice ID: [id number] Report ID: [id number]
--- NOTE | 2023-08-29 14:26 | P.DS ---
Admission Date: 08/26/23 Discharge Date: 08/29/23 Reason for Admission: Chest pain Consultations: Cardiology - Dr. Aldana Brief History of Present Illness: 62yo M, PMH: hyperlipidemia, GERD, CAD with recent stent placement Patient presents to the emergency department chief complaint of intermittent chest pain. He was seen here and admitted on 08/09/2023 and subsequently discharged on 08/13/2023 after having 3 stents placed. He had been doing well since then until the last 2 days and has been experiencing intermittent chest pressure. He feels as if the episodes of chest pressure are related to exertion, complains of mild shortness of breath. He was evaluated in the emergency department his labs were significant for initial high sensitive troponin of 838.5 EKG without STEMI criteria chest x-ray unremarkable, his last measured troponin during his admission was greater than 125,000. He has been compliant with his aspirin and Brilinta not missing any doses. Given his chest pain and elevated troponin ED provider wishes to admit for further evaluation and management. Hospital Course: Problem List: NSTEMI Severe multivessel CAD s/p PCI (08/29) s/p PCI x3 (08/10) Hyperlipidemia Hypertension GERD Patient presented with chest pain. Troponins were elevated. EKG without ST changes; consistent with NSTEMI. Cardiology was consulted. Patient underwent successful heart cath on 08/[address] Aldana and found to have severe right PDA stenosis, s/p PCI. (operative report below) Patient was given aspirin, metoprolol, brilinta, statin during hospitalization. Patient was monitored, feeling better, and was deemed stable for discharge home. Recommend close follow up with cardiology in 1-2 weeks. Follow up: PCP 3-5 days Cardiology 1-2 weeks Operative Report: Findings: 1. Left main; normal. 2. LAD; proximal 50% to 60% and then mid, there is a widely patent stent. Then, the LAD becomes normal distally. There is focal 80% but the vessel becomes smal l. Diagonal 1 branch has ostial 60% to 70% 3. Left circumflex; has a stent that extends from the circumflex to the OM widely patent. 4. RCA; large and dominant. Proximal stent is widely patent and then the RCA is normal and the PDA has proximal 90% very hazy, likely the culprit of the non- STEMI, status post successful PCI as above. 5. Normal LVEDP at 15 mmHg. Conclusion: 1. Severe right PDA stenosis, which is the culprit, status post successful PCI as above. 2. Moderate coronary artery disease elsewhere, exception is the distal LAD, it is severe, but small vessel. Will be left to medical management for now. Physical Exam: GEN: Alert, oriented, NAD HEENT: Normal conjunctiva, sclera anicteric CV: Regular rate and rhythm, no edema Pulm: Nonlabored respirations on room air, clear bilaterally ABD: Soft, nontender, nondistended Neuro: Normal speech, normal affect Vital Signs/Physical Exam: Temp Pulse Resp BP Pulse Ox 98.0 F 69 16 112/61 95 08/29/23 10:10 08/29/23 10:10 08/29/23 10:10 08/29/23 10:10 08/29/23 04:00 Laboratory Data at Discharge: WBC 8.70 thou/uL (4.3-10.9) 08/28/23 02:56 Hgb 13.5 g/dL (13.6-17.9) L 08/28/23 02:56 Hct 38.6 % (39.6-49.0) L 08/28/23 02:56 Plt Count 296 thou/uL (152-406) 08/28/23 02:56 PT 11.7 SECONDS (9.5-12.5) 08/26/23 01:40 INR 1.06 08/26/23 01:40 Sodium 140 mEq/L (136-145) 08/28/23 02:56 Potassium 3.8 mEq/L (3.5-5.1) 08/28/23 02:56 BUN 21 mg/dL (7-18) H 08/28/23 02:56 Creatinine 1.29 mg/dL (0.70-1.30) 08/28/23 02:56 Glucose 106 mg/dL (74-106) 08/28/23 02:56 Magnesium 2.0 mg/dL (1.6-2.4) 08/26/23 01:40 Total Bilirubin 0.3 mg/dL (0.2-1.0) 08/26/23 01:40 AST 16 U/L (15-37) 08/26/23 01:40 ALT 33 U/L (16-61) 08/26/23 01:40 Alkaline Phosphatase 55 U/L (45-117) 08/26/23 01:40 Home Medications: Fenofibrate [Tricor*] 160 mg PO DAILY 08/10/23 Omeprazole [Prilosec] 40 mg PO ACB PRN 08/10/23 Aspirin [Aspirin EC 81 MG] 81 mg PO DAILY 30 Days #30 tab 08/13/23 Atorvastatin Calcium [Lipitor] 40 mg PO BEDTIME 30 Days #30 tab 08/13/23 Metoprolol Tartrate [Lopressor*] 0.5 tab PO BID 30 Days #30 tab 08/13/23 Ticagrelor [Brilinta*] 90 mg PO BID 30 Days #60 tab 08/13/23 Physician Discharge Instructions: Patient presented with chest pain. Troponins were elevated. EKG without ST changes; consistent with NSTEMI. Cardiology was consulted. Patient underwent successful heart cath on 08/[address] Aldana and found to have severe right PDA stenosis, s/p PCI. (operative report below) Post operatively, patient was given aspirin, metoprolol, brilinta, statin. Patient was monitored, feeling better, and was deemed stable for discharge home. Recommend close follow up with cardiology in 1-2 weeks. Follow up: PCP 3-5 days Cardiology 1-2 weeks Operative Report: Findings: 1. Left main; normal. 2. LAD; proximal 50% to 60% and then mid, there is a widely patent stent. Then, the LAD becomes normal distally. There is focal 80% but the vessel becomes small. Diagonal 1 branch has ostial 60% to 70% 3. Left circumflex; has a stent that extends from the circumflex to the OM widely patent. 4. RCA; large and dominant. Proximal stent is widely patent and then the RCA is normal and the PDA has proximal 90% very hazy, likely the culprit of the non- STEMI, status post successful PCI as above. 5. Normal LVEDP at 15 mmHg. Conclusion: 1. Severe right PDA stenosis, which is the culprit, status post successful PCI as above. 2. Moderate coronary artery disease elsewhere, exception is the distal LAD, it is severe, but small vessel. Will be left to medical management for now. Time spent managing pt's care (in minutes): 45
== END 2023-08-29 16:56 | disposition home or self-care (01) ==
LOC: ER 01:03 → ERHOLD 05:50 → 2ND 08:20
PROVIDERS: ADMIT Hospitalist; ATTEND Hospitalist
PROC: 027034Z Dilation of Coronary Artery, One Artery with Drug-eluting Intraluminal Device, Percutaneous Approach (ICD-10-PCS; principal; 2023-08-29)
PROC: 4A023N7 Measurement of Cardiac Sampling and Pressure, Left Heart, Percutaneous Approach (ICD-10-PCS; 2023-08-29)
PROC: B2011ZZ Plain Radiography of Multiple Coronary Arteries using Low Osmolar Contrast (ICD-10-PCS; 2023-08-29)
DX: I21.4 Non-ST elevation (NSTEMI) myocardial infarction (principal); N17.9 Acute kidney failure, unspecified; E78.5 Hyperlipidemia, unspecified; K21.9 Gastro-esophageal reflux disease without esophagitis; I25.10 Atherosclerotic heart disease of native coronary artery without angina pectoris; I10 Essential (primary) hypertension; R07.9 Chest pain, unspecified; Z87.891 Personal history of nicotine dependence; Z20.822 Contact with and (suspected) exposure to COVID-19
CPT/HCPCS: 93005; 85025 ×3; 80048 ×3; 36415 ×2; 83735; 85610; 80076; 84484 ×4; 83880; 87635; 87804 ×2; 71045; 92928; 93458; 76937; 99285; C1893; Q9967; C1725; J1644; J2001; J1650 ×3; J2250; J3010; G0378 ×7; J7040; J0461

== ENCOUNTER 2024-07-08 12:22 | Inpatient (IN) | payer MEDICARE, OTHER ==
[2024-07-08 13:11] LABS: Absolute Eosinophils 0.7 K/uL (0-0.5); Absolute Lymphocytes (CBC) 2.9 K/uL (0.7-4.9); Absolute Monocytes 0.6 K/uL (0.1-1.3); Absolute Neutrophil 3.6 K/uL (1.8-8.0); Basophils % 0.5 % (0-1.3); Eosinophils % 8.6 % (0-4.4); Hematocrit 39.7 % (39.6-49.0); Hemoglobin 12.9 g/dL (13.6-17.9); Lymphocytes % 37.3 % (15.3-44.8); MCH 30.4 pg (27.0-35.0); MCHC 32.5 g/dL (32.0-36.0); MCV 93.8 fL (80-100); MPV 7.9 fL (7.6-11.3); Monocytes % 7.6 % (3.3-12.3); Nucleated Red Blood Cells % 0.1 % (0-0); Platelets 250 thou/uL (152-406); RBC Red Blood Cell Count 4.23 M/uL (4.33-5.43)
[2024-07-08 13:29] LABS: Albumin 3.5 g/dL (3.4-5.0); Anion Gap 8.8 mEq/L (5.0-15.0); Bilirubin Total 0.4 mg/dL (0.2-1.0); Globulin 3.5 g/dL (2.3-3.5); Magnesium 2.1 mg/dL (1.6-2.4); Potassium 3.8 mEq/L (3.5-5.1)
[2024-07-08 13:36] LABS: Troponin High Sensitivity 204.3 pg/mL (<58.9)
--- NOTE | 2024-07-08 14:21 | ER ---
Nurse's Notes [facility] Name: Hiram Schuster Age: 63 yrs Sex: Male : 1960 Arrival Date: 07/08/2024 Time: 12:22 Bed 17 Private MD: Diagnosis: Chest pain;Syncope;NSTEMI Presentation: 07/08 12:28 Chief complaint: EMS states: Sudden onset left sided crushing chest pain that started me1 while seated in mosque, syncopal episode after Nitro SL x2. BP 137/68, HR 58, SB on 12 lead. 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 Hx [place] w/stent placement.. 12:28 Coronavirus screen: At this time, the client does not indicate any symptoms associated hb with coronavirus-19. Ebola Screen: No symptoms or risks identified at this time. Initial Sepsis Screen: Does the patient meet any 2 criteria? No. Patient's initial sepsis screen is negative. Does the patient have a suspected source of infection? No. Patient's initial sepsis screen is negative. Risk Assessment: Do you want to hurt yourself or someone else? Patient reports no desire to harm self or others. Onset of symptoms was July 08, 2024. 12:28 Method Of Arrival: EMS: [facility] hb 12:28 Acuity: DESTINEE 2 hb Historical: - Allergies: 12:46 menthol; hb - Home Meds: 12:46 metoprolol tartrate 25 mg oral tablet 2 times per day [Active]; hb - PMHx: 12:46 Hypercholesterolemia; Hypertensive disorder; Gastroesophageal reflux disease; hb Myocardial infarction; - PSHx: 12:46 Cardiac Stents x 4; hb - Immunization history:: Adult Immunizations up to date. - Infectious Disease History:: Denies. - Social history:: Smoking status: Patient denies any tobacco usage or history of. Screenin:45 [facility] ED Fall Risk Assessment (Adult) History of falling in the last 3 months, me1 including since admission No falls in past 3 months (0 pts) Confusion or Disorientation No (0 pts) Intoxicated or Sedated No (0 pts) Impaired Gait No (0 pts) Mobility Assist Device Used No (0 pt) Altered Elimination No (0 pt) Score/Fall Risk Level 0 - 2 = Low Risk Oriented to surroundings, Maintained a safe environment, Educated pt \T\ family on fall prevention, incl call for assistance when getting out of bed, Assessed \T\ reinforced patient's understanding of fall precautions. Abuse screen: Denies threats or abuse. Denies injuries from another. Nutritional screening: No deficits noted. Tuberculosis screening: No symptoms or risk factors identified. Assessment: 12:45 General: Appears comfortable, well groomed, well developed, well nourished, Behavior is me1 calm, cooperative, appropriate for age, Reports Sudden onset left sided crushing chest pain that started while seated in mosque, syncopal episode after. 12:45 Pain: Denies pain. Complains of pain in chest Pain does not radiate. Pain currently is me1 2 out of 10 on a pain scale. at worst was 10 out of 10 on a pain scale. Quality of pain is described as sharp, Pain began suddenly, Is lasting 30 minutes. Cardiovascular: Reports chest pain, diaphoresis, shortness of breath, Patient's skin is warm and dry. Respiratory: Airway is patent Respiratory effort is even, unlabored, Respiratory pattern is regular, symmetrical. GI: No signs and/or symptoms were reported involving the gastrointestinal system. : No signs and/or symptoms were reported regarding the genitourinary system. EENT: No signs and/or symptoms were reported regarding the EENT system. Derm: Skin is intact, is healthy with good turgor, Skin is pink, warm \T\ dry. Musculoskeletal: No signs and/or symptoms reported regarding the musculoskeletal system. 12:45 Neuro: Level of Consciousness is awake, alert, obeys commands, Oriented to person, me1 place, time, situation, Appropriate for age. Vital Signs: 12:28 BP 121 / 67; Pulse 58; Resp 16; Temp 98.2; Pulse Ox 100% on R/A; Weight 79.38 kg; hb Height 5 ft. 5 in. ; Pain /; 13:12 BP 111 / 56 Supine; Pulse 62; me1 13:12 BP 112 / 63 Sitting; Pulse 64; me1 13:12 BP 118 / 62 Standing; Pulse 67; me1 13:30 BP 108 / 63; Pulse 64; Resp 17; Pulse Ox 99% on R/A; me1 14:00 BP 126 / 68; Pulse 68; Resp 15; Pulse Ox 100% on R/A; me1 15:00 BP 121 / 65; Pulse 71; Resp 21; Pulse Ox 96% on R/A; me1 16:00 BP 129 / 68; Pulse 65; Resp 18; Pulse Ox 97% on R/A; me1 16:45 BP 121 / 61; Pulse 71; Resp 17; Temp 98.1; Pulse Ox 98% on R/A; me1 12:28 Body Mass Index 29.12 (79.38 kg, 165.1 cm) hb 12:28 Pain Scale: Adult hb ED Course: 12:30 EKG done, by ED staff, reviewed by Diana Hall MD. hb 12:32 Inserted saline lock: 20 gauge in right antecubital area, using aseptic technique. hb Blood collected. Flushed with 10 mL NS. 12:39 Patient arrived in ED. hb 12:39 Diana Hall MD is Attending Physician. sd2 12:45 Patient has correct armband on for positive identification. Bed in low position. Call me1 light in reach. Side rails up X2. Provided Education on: POC. Verbalized understanding. . Client placed on continuous cardiac and pulse oximetry monitoring. NIBP monitoring applied. manager monitoring on. Pulse ox on. NIBP on. 12:45 No provider procedures requiring assistance completed. Patient maintains SpO2 me1 saturation greater than 95% on room air. 12:46 Triage completed. hb 12:47 Gege Guadarrama, RN is Primary Nurse. me1 12:47 Arm band placed on. hb 13:05 Troponin High Sensitivity Sent. me1 13:06 Magnesium Sent. me1 13:06 CMP Sent. me1 13:06 CBC with Diff Sent. me1 13:06 Initial lab(s) drawn, by ED staff, sent to lab. me1 13:35 XRAY Chest (1 view) In Process Unspecified. EDMS 14:21 Linwood Pearson MD is Hospitalizing Provider. sd2 17:01 Patient admitted, IV remains in place. me1 Administered Medications: No medications were administered Medication: 12:45 VIS not applicable for this client. me1 Outcome: 14:21 Decision to Hospitalize by Provider. sd2 17:01 Admitted to Med/surg accompanied by tech, via wheelchair, room 202, with chart, Report me1 called to faxed, receipt confirmed with Laya 17:01 Condition: stable 17:01 Instructed on the need for admit, 17:37 Patient left the ED. me1 Signatures: Dispatcher [employer] EDMS Maren Tobin RN RN Diana Hall MD MD [facility] Gege Guadarrama RN RN me1 Corrections: (The following items were deleted from the chart) 14:09 12:28 Chief complaint: EMS states: Sudden onset left sided crushing chest pain that me1 started while seated in mosque, syncopal episode after Nitro SL x2. BP 137/68, HR 58, SB on 12 lead. 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 Hx [place] w/stent placement.. hb 14:13 12:45 General: Appears comfortable, me1 me1 14:16 14:10 Pain: Denies pain. Complains of pain in chest Pain does not radiate. Pain me1 currently is 2 out of 10 on a pain scale. at worst was 10 out of 10 on a pain scale. Quality of pain is described as sharp, Pain began suddenly, Is lasting 30 minutes. me1 14:16 14:10 Neuro: Level of Consciousness is awake, alert, obeys commands, Oriented to me1 person, place, time, situation, Appropriate for age me1 14:16 14:10 Cardiovascular: Reports chest pain, diaphoresis, shortness of breath, Patient's me1 skin is warm and dry. me1 14:16 14:10 Respiratory: Airway is patent Respiratory effort is even, unlabored, Respiratory me1 pattern is regular, symmetrical, me1 14:16 14:10 GI: No signs and/or symptoms were reported involving the gastrointestinal system. me1 me1 14:16 14:10 : No signs and/or symptoms were reported regarding the genitourinary system. me1me1 14:16 14:10 EENT: No signs and/or symptoms were reported regarding the EENT system. me1 me1 14:16 14:10 Derm: Skin is intact, is healthy with good turgor, Skin is pink, warm \T\ dry. me1 me1 14:16 14:10 Musculoskeletal: No signs and/or symptoms reported regarding the musculoskeletal me1 system. me1 14:16 14:10 VIS not applicable for this client. me1 me1 14:17 12:49 [facility] ED Fall Risk Assessment (Adult) History of falling in the last 3 months, me1 including since admission No falls in past 3 months (0 pts) Confusion or Disorientation No (0 pts) Intoxicated or Sedated No (0 pts) Impaired Gait No (0 pts) Mobility Assist Device Used No (0 pt) Altered Elimination No (0 pt) Score/Fall Risk Level 0 - 2 = Low Risk Oriented to surroundings, Maintained a safe environment, Educated pt \T\ family on fall prevention, incl call for assistance when getting out of bed, Assessed \T\ reinforced patient's understanding of fall precautions, hb 14:17 12:49 Abuse screen: Denies threats or abuse. Denies injuries from another. hb wa1 14:17 12:49 Nutritional screening: No deficits noted. hb wa1 14:17 12:49 Tuberculosis screening: No symptoms or risk factors identified. hb wa1 14:18 14:10 Patient has correct armband on for positive identification. Bed in low position. me1 Call light in reach. Side rails up X2. [facility] 14:18 14:10 Provided Education on: POC. Verbalized understanding. . wa1 wa1 14:18 14:10 Client placed on continuous cardiac and pulse oximetry monitoring. NIBP wa1 monitoring applied. manager monitoring on. Pulse ox on. NIBP on. me1
--- NOTE | 2024-07-08 14:21 | EDPHYS ---
Physician Documentation [facility] Name: Hiram Schuster Age: 63 yrs Sex: Male : 1960 Arrival Date: 07/08/2024 Time: 12:22 Bed 17 Private MD: ED Physician Diana Hall HPI: 07/08 12:49 This 63 yrs old Male presents to ER via EMS with complaints of Chest Pain. sd2 12:49 63 yo M presents via EMS with CC of chest pain. Reports at [employer] and started feeling sd2 severe crushing chest pain so he went and got his nitro from his truck and took one after which he started feeling dizzy and sweating and passed out. There was a doctor there as well who then gave him another nitroglycerin. EMS reports normal BP upon arrival and was given 3 baby ASA en route. Pt reports feeling improved now with 1/10 chest pain. Had NC July of 2023 with 4 stents placed. Follows up with Dr. Bah at [facility] cardiology.. Historical: - Allergies: 12:46 menthol; hb - Home Meds: 12:46 metoprolol tartrate 25 mg oral tablet 2 times per day [Active]; hb - PMHx: 12:46 Hypercholesterolemia; Hypertensive disorder; Gastroesophageal reflux disease; hb Myocardial infarction; - PSHx: 12:46 Cardiac Stents x 4; hb - Immunization history:: Adult Immunizations up to date. - Infectious Disease History:: Denies. - Social history:: Smoking status: Patient denies any tobacco usage or history of. ROS: 12:49 Constitutional: Negative for fever, chills, and weight loss, Eyes: Negative for injury, sd2 pain, redness, and discharge, 12:49 Respiratory: Negative for shortness of breath, cough, wheezing. Abdomen/GI: Negative for abdominal pain, nausea, vomiting, diarrhea. MS/Extremity: Negative for injury and deformity, Skin: Negative for injury, rash, and discoloration, Neuro: Negative for headache, numbness and tingling. 12:49 Cardiovascular: Positive for chest pain, Negative for orthopnea, palpitations, Exam: 12:49 Constitutional: This is a well developed, well nourished patient who is awake, alert, sd2 and in no acute distress. Head/Face: Normocephalic, atraumatic. Eyes: EOMI, normal conjunctiva bilaterally Chest/axilla: Normal chest wall appearance and motion. Nontender with no deformity. Cardiovascular: Regular rate and rhythm with a normal S1 and S2. No gallops, murmurs, or rubs. 2+ distal pulses. Respiratory: Lungs have equal breath sounds bilaterally, clear to auscultation and percussion. No rales, rhonchi or wheezes noted. No increased work of breathing, no retractions or nasal flaring. Abdomen/GI: Soft, non-tender, with normal bowel sounds. No guarding or rebound. No evidence of tenderness throughout. Skin: Warm, dry with normal turgor. Normal color with no rashes, no lesions, and no evidence of cellulitis. MS/ Extremity: Pulses equal, no cyanosis. Neurovascular intact. Full, normal range of motion. Psych: Awake, alert, with orientation to person, place and time. Behavior, mood, and affect are within normal limits. 12:49 ECG was reviewed by the Attending Physician. Sinus bradycardia, rate 58, no STEMI criteria Vital Signs: 12:28 BP 121 / 67; Pulse 58; Resp 16; Temp 98.2; Pulse Ox 100% on R/A; Weight 79.38 kg; hb Height 5 ft. 5 in. ; Pain /10; 13:12 BP 111 / 56 Supine; Pulse 62; me1 13:12 BP 112 / 63 Sitting; Pulse 64; me1 13:12 BP 118 / 62 Standing; Pulse 67; me1 13:30 BP 108 / 63; Pulse 64; Resp 17; Pulse Ox 99% on R/A; me1 14:00 BP 126 / 68; Pulse 68; Resp 15; Pulse Ox 100% on R/A; me1 15:00 BP 121 / 65; Pulse 71; Resp 21; Pulse Ox 96% on R/A; me1 16:00 BP 129 / 68; Pulse 65; Resp 18; Pulse Ox 97% on R/A; me1 16:45 BP 121 / 61; Pulse 71; Resp 17; Temp 98.1; Pulse Ox 98% on R/A; me1 12:28 Body Mass Index 29.12 (79.38 kg, 165.1 cm) hb 12:28 Pain Scale: Adult hb MDM: 12:39 Patient medically screened. sd2 12:49 Differential diagnosis: ACS, orthostasis, anemia, dehydration, electrolyte abnormality, sd2 cardiogenic among others. The patient was not given aspirin in the Emergency Department. Administered by EMS. Data reviewed: vital signs, nurses notes, EMS record, lab test result(s), EKG, radiologic studies. Historians other than the Patient: Spouse/Significant Other: and daughter at . Care significantly affected by the following chronic conditions: Hypertension. 07/08 12:49 Order name: CBC with Diff; Complete Time: 13:22 sd2 07/08 12:49 Order name: CMP; Complete Time: 13:43 sd2 07/08 12:49 Order name: Magnesium; Complete Time: 13:43 sd2 07/08 12:49 Order name: Troponin High Sensitivity; Complete Time: 13:43 sd2 07/08 12:49 Order name: BNP; Complete Time: 13:43 sd2 07/08 16:19 Order name: CBC with Automated Diff [facility]PA 07/08 16:19 Order name: CBC with Automated Diff EDPA 07/08 16:19 Order name: Comprehensive Metabolic Panel [facility] 07/08 16:19 Order name: Comprehensive Metabolic Panel [facility]PA 07/08 16:19 Order name: Lipid Profile [facility] 07/08 16:19 Order name: Lipid Profile [facility] 07/08 16:19 Order name: Magnesium [facility]PA 07/08 16:19 Order name: Magnesium [facility]PA 07/08 16:19 Order name: NT PRO-BNP [facility] 07/08 16:19 Order name: NT PRO-BNP [facility] 07/08 16:19 Order name: Phosphorus EDMS 07/08 16:19 Order name: Phosphorus [facility]PA 07/08 16:19 Order name: Troponin High Sensitivity [facility] 07/08 16:19 Order name: Troponin High Sensitivity [facility] 07/08 16:19 Order name: Troponin High Sensitivity [facility] 07/08 12:49 Order name: XRAY Chest (1 view); Complete Time: 15:33 sd2 07/08 16:19 Order name: Echo with Doppler [facility] 07/08 16:19 Order name: CONS Physician Consult [facility] 07/08 12:49 Order name: EKG - Nurse/Tech; Complete Time: 13:05 sd2 07/08 12:49 Order name: Orthostatics; Complete Time: 13:06 sd2 Administered Medications: No medications were administered Disposition Summary: 07/08/24 14:21 Hospitalization Ordered Notes: Hospitalization Status: Inpatient Admission sd2 Provider: Linwood Pearson Location: Telemetry/MedSur (Inpatient) sd2 Condition: Stable sd2 Problem: new sd2 Symptoms: have improved sd2 Bed/Room Type: Standard sd2 Room Assignment: 202(07/08/24 16:40) eb Diagnosis - Chest pain sd2 - Syncope sd2 - NSTEMI sd2 Forms: - Medication Reconciliation Form sd2 - SBAR form sd2 - Leadership Thank You Letter sd2 Signatures: Dispatcher [employer] Maren Rosa RN RN hb Botello, Elizabeth eb Dunlop, Stephanie, MD MD sd2 Corrections: (The following items were deleted from the chart) 16:40 14:21 sd2 eb
[2024-07-08] MEDS ORDERED: HOME MED 1 EA UNK (Omeprazole [Prilosec] 40 MG Capsule.Dr) PO PRN (14:51)
--- NOTE | 2024-07-08 14:55 | P.HP ---
Certification for Inpatient Patient admitted to: Inpatient With expected LOS: >2 Midnights Patient will require the following post-hospital care: None Practitioner: I am a practitioner with admitting privileges, knowledge of patient current condition, hospital course, and medical plan of care. Services: Services provided to patient in accordance with Admission requirements found in Title 42 Section 412.3 of the Code of Federal Regulations Patient History Date of Service: 07/08/24 Reason for admission: Non-STEMI; chest pain with syncope and collapse History of Present Illness: Patient is a 63-year-old gentleman who was at [employer] with his family when he started cursing some chest discomfort. He took a nitroglycerin at that time and he stated that he was feeling somewhat better. He started feeling lightheaded and he passed out. EMS was called and when they saw him his heart rate was 150s with a systolic blood pressure in the 140s. He was still having some chest pain so they gave him another nitroglycerin. His chest pain resolved and his blood pressure came down with a systolic blood pressure in the 110s and his heart rate was down into the 60s. EMS brought him into the emergency room for further evaluation. In the ER he had EKG and troponins. EKG with acute abnormality. Troponins were slightly elevated. Patient was admitted to the hospital for an acute myocardial infarction. Patient be started on antiplatelet therapy and statin therapy along with a heparin drip. Cardiology will be consulted. Patient has a extensive history of coronary artery disease. Patient states he has had 4 prior stents placed. He has been taking his medications religiously. Patient states on Brilinta as well as aspirin and he takes 7 different medications on a daily basis. He was going to follow-up with his local cardiology, but they were out of network so he is going to [place]. He states he recently had an EKG performed in the office that was unremarkable. He has had no other workup done since that time and patient will be admitted to the hospital here for inpatient hospitalization. Allergies No Known Allergies Allergy (Unverified 08/09/23 18:40) Home Medications: Fenofibrate [Tricor*] 160 mg PO DAILY 08/10/23 Omeprazole [Prilosec] 40 mg PO ACB PRN 08/10/23 Aspirin [Aspirin EC 81 MG] 81 mg PO DAILY 30 Days #30 tab 08/13/23 Atorvastatin Calcium [Lipitor] 40 mg PO BEDTIME 30 Days #30 tab 08/13/23 Metoprolol Tartrate [Lopressor*] 0.5 tab PO BID 30 Days #30 tab 08/13/23 Ticagrelor [Brilinta*] 90 mg PO BID 30 Days #60 tab 08/13/23 - Past Medical/Surgical History Diabetic: No -: HLD -: GERD -: Hypertension -: Coronary artery disease -: [place] -: Hernia Psychosocial/ Personal History: Lives at home with - Family History Father Medical History: Heart disease Brother Medical History: Heart disease - Social History Smoking Status: Former smoker Alcohol use: No CD- Drugs: No Caffeine use: No Review of Systems 10-point ROS is otherwise unremarkable Physical Examination - Vital Signs Temperature: 98 F Blood Pressure: 140/80 Pulse: 80 Respirations: 18 Pulse Ox (%): 95 - Physical Exam General: Alert, In no apparent distress, Oriented x3 HEENT: Atraumatic, PERRLA, Mucous membr. moist/pink, EOMI, Sclerae nonicteric Neck: Supple, 2+ carotid pulse no bruit, No LAD, Without JVD or thyroid abnormality Respiratory: Clear to auscultation bilaterally, Normal air movement Cardiovascular: Regular rate/rhythm, Normal S1 S2 Gastrointestinal: Normal bowel sounds, Soft and benign, Non-distended, No tenderness Musculoskeletal: No clubbing, No swelling, No tenderness Integumentary: No rashes Neurological: Normal gait, Normal speech, Normal strength at 5/5 x4 extr, Normal tone, Sensation intact, Cranial nerves 3-12 intact, Normal affect Lymphatics: No axilla or inguinal lymphadenopathy - Studies Laboratory Data (last 24 hrs) 07/08/24 07/08/24 13:03 13:03 WBC 7.80 Hgb 12.9 L Hct 39.7 Plt Count 250 Sodium 141 Potassium 3.8 BUN 26 H Creatinine 1.28 Glucose 107 H Magnesium 2.1 Total Bilirubin 0.4 AST 20 ALT 36 Alkaline Phosphatase 42 L Assessment & Plan - Problems (Diagnosis) (1) NSTEMI (non-ST elevated myocardial infarction) Current Visit: Yes Status: Acute (2) Presence of stent in coronary artery in patient with coronary artery disease Current Visit: Yes Status: Acute (3) Hyperlipidemia Current Visit: Yes Status: Acute (4) Syncope and collapse Current Visit: Yes Status: Acute - Plan -High-sensitivity troponin -Cardiology consultation -Echocardiogram and other intervention per cardiology recommendation -Repeat EKG -Anticoagulation -Lipid profile -Cleaning Specialist regarding modifying risk for cardiac disease -carotid doppler Discharge Plan: Home Plan to discharge in: Greater than 2 days - Advance Directives Does patient have a Living Will: No Does patient have a Durable POA for Healthcare: No - Code Status/Comfort Care Code Status Assessed: Yes Code Status: Full Code Critical Care: Yes Time Spent Managing PTS Care (In Minutes): 50
--- NOTE | 2024-07-08 15:18 | RAD REPORT ---
EXAM DESCRIPTION: RADChest Single View07/08/2024 1:33 pm CLINICAL HISTORY: CHEST PAIN COMPARISON: Chest Pa And Lat (2 Views) dated 09/26/2023; Chest Single View dated 08/26/2023; Chest S brandee View dated 08/11/2023; Chest Single View dated 08/09/2023 TECHNIQUE: Portable AP view of the chest. FINDINGS: The lungs are clear. No pneumothorax or effusion. The cardiomediastinal contours are unre markable. IMPRESSION: No acute cardiopulmonary process.
--- NOTE | 2024-07-08 15:41 | P.CNS ---
Date of Consult: 07/08/24 Chief Complaint: Non-STEMI; chest pain with syncope and collapse History of Present Illness: Patient with PMH of CAD s/p multiple PCIs in the past, last in 2022 for NSTEMI, presented with acute onest shart chest pain, left sided, that required him to take NTG then he had syncope after, he report similar episodes in the past that responded to NTG, last was almost 2-3 months ago, he has been complaint with medications, no other symptoms. Allergies No Known Allergies Allergy (Unverified 08/09/23 18:40) Home Medications: Fenofibrate [Tricor*] 160 mg PO DAILY 08/10/23 Omeprazole [Prilosec] 40 mg PO ACB PRN 08/10/23 Aspirin [Aspirin EC 81 MG] 81 mg PO DAILY 30 Days #30 tab 08/13/23 Atorvastatin Calcium [Lipitor] 40 mg PO BEDTIME 30 Days #30 tab 08/13/23 Metoprolol Tartrate [Lopressor*] 0.5 tab PO BID 30 Days #30 tab 08/13/23 Ticagrelor [Brilinta*] 90 mg PO BID 30 Days #60 tab 08/13/23 - Past Medical/Surgical History Diabetic: No -: HLD -: GERD -: Hypertension -: Coronary artery disease -: [place] -: Hernia Psychosocial/ Personal History: Lives at home with - Family History Father Medical History: Heart disease Brother Medical History: Heart disease - Social History Alcohol use: No CD- Drugs: No Caffeine use: No Review of Systems 10-point ROS is otherwise unremarkable Physical Examination Temp Pulse Resp BP Pulse Ox 98 F 80 18 140/80 95 07/08/24 14:58 07/08/24 14:58 07/08/24 14:58 07/08/24 14:58 07/08/24 14:58 General: Alert, In no apparent distress HEENT: Atraumatic, PERRLA, Mucous membr. moist/pink, EOMI, Sclerae nonicteric Neck: Supple, 2+ carotid pulse no bruit, No LAD, Without JVD or thyroid abnormality Respiratory: Clear to auscultation bilaterally, Normal air movement Cardiovascular: Regular rate/rhythm, Normal S1 S2 Gastrointestinal: Normal bowel sounds, No tenderness Musculoskeletal: No tenderness Integumentary: No rashes Neurological: Normal gait, Normal speech, Normal tone, Normal affect Lymphatics: No axilla or inguinal lymphadenopathy Laboratory Data (last 24 hrs) 07/08/24 07/08/24 13:03 13:03 WBC 7.80 Hgb 12.9 L Hct 39.7 Plt Count 250 Sodium 141 Potassium 3.8 BUN 26 H Creatinine 1.28 Glucose 107 H Magnesium 2.1 Total Bilirubin 0.4 AST 20 ALT 36 Alkaline Phosphatase 42 L - Problems (1) Hyperlipidemia Current Visit: Yes Status: Acute Plan: continue lipitor (2) NSTEMI (non-ST elevated myocardial infarction) Current Visit: Yes Status: Acute Plan: NPO after midnight for coronary angiogram in am ASA 81 mg daily Continue Brilinta 90 mg po BID Heparin drip ACS protocol (3) Syncope and collapse Current Visit: Yes Status: Acute Plan: most likely vagal secondary to NTG use, monitor on tele. get echo
[2024-07-08] MEDS ORDERED: MORPHINE 2 MG/ML SYR ONE (16:06)
[2024-07-08] MEDS: MORPHINE 4 MG/ML SYR IV ONE (16:08)
[2024-07-08] MEDS ORDERED: ONDANSETRON 4 MG/2 ML VIAL IV PRN (16:09)
[2024-07-08] MEDS ORDERED: ALPRAZOLAM 0.25 MG TABLET PO PRN (16:09)
[2024-07-08] MEDS ORDERED: MORPHINE 4 MG/ML SYR IV PRN (16:09)
[2024-07-08 18:09] VITALS: BMI 29.1
[2024-07-08] MEDS: ENOXAPARIN 80 MG/0.8 ML SQ SCH (18:14)
[2024-07-08] MEDS: ATORVASTATIN 80 MG TAB PO SCH (20:21)
[2024-07-08] MEDS: TICAGRELOR 90 MG TABLET PO SCH (20:21)
[2024-07-08] MEDS: METOPROLOL TAR 25 MG TAB PO SCH (20:23)
[2024-07-08] MEDS ORDERED: ATORVASTATIN 40 MG TAB PO SCH (21:00)
[2024-07-09 06:11] LABS: Absolute Eosinophils 0.7 K/uL (0-0.5); Absolute Lymphocytes (CBC) 2.5 K/uL (0.7-4.9); Absolute Monocytes 0.6 K/uL (0.1-1.3); Absolute Neutrophil 3.2 K/uL (1.8-8.0); Basophils % 0.6 % (0-1.3); Eosinophils % 10.3 % (0-4.4); Hematocrit 37.6 % (39.6-49.0); Hemoglobin 12.4 g/dL (13.6-17.9); Lymphocytes % 35.5 % (15.3-44.8); MCH 30.9 pg (27.0-35.0); MCV 93.9 fL (80-100); MPV 7.8 fL (7.6-11.3); Neutrophils % 45.6 % (41.7-73.7); Platelets 214 thou/uL (152-406)
[2024-07-09 06:30] LABS: Albumin 3.3 g/dL (3.4-5.0); Anion Gap 5.2 mEq/L (5.0-15.0); Bilirubin Total 0.3 mg/dL (0.2-1.0); Globulin 3.2 g/dL (2.3-3.5); Magnesium 2.1 mg/dL (1.6-2.4); Phosphorus 3.1 mg/dL (2.5-4.9); Potassium 4.2 mEq/L (3.5-5.1); Protein, Total 6.5 g/dL (6.4-8.2)
[2024-07-09] MEDS: ASPIRIN EC 81 MG TAB PO ONE (06:46)
[2024-07-09] MEDS: ASPIRIN EC 81 MG TAB PO SCH (06:49)
[2024-07-09] MEDS ORDERED: NITROGLYCERIN/D5W 50 MG/250 ML BTL IV ONE (06:49)
[2024-07-09] MEDS ORDERED: HEPA 1000U/500MLS 2,000 UNIT/1,000 ML BAG IV ONE (06:49)
[2024-07-09] MEDS ORDERED: MIDAZOLAM HCL 2 MG/2 ML INJ ONE (06:49)
[2024-07-09] MEDS ORDERED: LIDOCAINE 1% 20 ML MDV ONE (06:49)
[2024-07-09] MEDS ORDERED: HEPARIN 10,000 UNIT/10 ML VIAL IV ONE (06:49)
[2024-07-09] MEDS ORDERED: CLOPIDOGREL 75 MG TABLET ONE (06:50)
[2024-07-09] MEDS ORDERED: ATROPINE SULF 1 MG/10 ML SYR IV ONE (06:50)
[2024-07-09] MEDS ORDERED: FENTANYL CITR 100 MCG/2 ML ONE (06:50)
[2024-07-09] MEDS ORDERED: HEPARIN 5000 UNIT/ML 1 ML VIAL ONE (06:51)
[2024-07-09] MEDS ORDERED: NA CHLORIDE 0.9% 500 ML ONE (07:12)
--- NOTE | 2024-07-09 08:27 | RAD REPORT ---
EXAM DESCRIPTION: - CP - 07/09/2024 5:23 am CLINICAL HISTORY: Syncope and collapse COMPARISON: No comparisons TECHNIQUE: Real-time sonographic grayscale, color duplex, and spectral wave Doppler evaluation of monae carotid systems was performed. FINDINGS: Normal high resistance waveforms are noted in both external carotid arteries. The common c arotid arteries and internal carotid arteries show normal low resistance waveforms. Mild smooth predominantly hypoechoic noncalcified plaque at the carotid bulbs more prominent on the l eft. Peak systolic velocity less than 125 cm/ sec bilaterally. ICA/CCA peak systolic ratios less jarocho n 2.0 bilaterally. Antegrade flow seen in both vertebral arteries. Left vertebral artery appears to be dominant. IMPRESSION: Less than 50% ICA stenosis bilaterally. Vertebral arteries are patent bilaterally. Evaluation of carotid artery stenosis, if any, is reported based on consensus recommendations of the Society of Radiologists in Ultrasound (Too et al., Radiology, 2003)
[2024-07-09] MEDS: FENOFIBRATE 160 MG TAB PO SCH (08:38)
--- NOTE | 2024-07-09 08:38 | P.PN ---
Subjective Date of Service: 07/09/24 Chief Complaint: Non-STEMI; chest pain with syncope and collapse Subjective: No new changes, No C/O voiced, Tolerating diet, Ambulating, Improving Review of Systems 10-point ROS is otherwise unremarkable Physical Examination - Vital Signs Temperature: 97.5 F Blood Pressure: 103/68 Pulse: 72 Respirations: 16 Pulse Ox (%): 95 - Physical Exam General: Alert, In no apparent distress HEENT: Atraumatic, PERRLA, EOMI Neck: Supple, JVD not distended Respiratory: Clear to auscultation bilaterally, Normal air movement Cardiovascular: Regular rate/rhythm, Normal S1 S2 Gastrointestinal: Normal bowel sounds, No tenderness Musculoskeletal: No tenderness Integumentary: No rashes Neurological: Normal speech, Normal tone, Normal affect Lymphatics: No axilla or inguinal lymphadenopathy - Studies Laboratory Data (last 24 hrs) 07/08/24 07/08/24 13:03 13:03 WBC 7.80 Hgb 12.9 L Hct 39.7 Plt Count 250 Sodium 141 Potassium 3.8 BUN 26 H Creatinine 1.28 Glucose 107 H Magnesium 2.1 Total Bilirubin 0.4 AST 20 ALT 36 Alkaline Phosphatase 42 L Medications List Reviewed: Yes Assessment And Plan - Current Problems (Diagnosis) (1) Hyperlipidemia Current Visit: Yes Status: Acute Plan: continue lipitor 40 mg daily (2) NSTEMI (non-ST elevated myocardial infarction) Current Visit: Yes Status: Acute Plan: Coronary angiogram done today and PCI of distal RCA into RPDA was done with Synergy FERNY ASA 81 mg daily Continue Brilinta 90 mg po BID (3) Syncope and collapse Current Visit: Yes Status: Acute Plan: most likely vagal secondary to NTG use, monitor on tele. get echo
--- NOTE | 2024-07-09 15:41 | P.PN ---
Subjective Date of Service: 07/09/24 Chief Complaint: Non-STEMI; chest pain with syncope and collapse Pt is resting comfortably in bed. He denies any chest pain or SOB. Cardiology did cardiac cath today and placed a stent. Continue brilinta and Aspirin. No other complaints. Review of Systems General: Unremarkable Eyes: Unremarkable ENT: Unremarkable Respiratory: Unremarkable Cardiovascular: Unremarkable Gastrointestinal: Unremarkable Genitourinary: Unremarkable Musculoskeletal: Unremarkable Integumentary: Unremarkable Neurological: Unremarkable Lymphatics: Unremarkable Physical Examination - Vital Signs Temperature: 98 F Blood Pressure: 125/64 Pulse: 72 Respirations: 16 Pulse Ox (%): 94 - Physical Exam General: Alert, In no apparent distress, Oriented x3 HEENT: Atraumatic, Normocephalic, PERRLA Neck: Supple, 2+ carotid pulse no bruit, JVD not distended Respiratory: Clear to auscultation bilaterally, Normal air movement Cardiovascular: No edema, Normal pulses, Regular rate/rhythm, Normal S1 S2 Capillary refill: <2 Seconds Gastrointestinal: Normal bowel sounds, Soft and benign, Non-distended Musculoskeletal: No clubbing, No swelling, No contractures Integumentary: No rashes, No breakdown, No significant lesion, No tenderness/swelling Neurological: Normal gait, Normal speech, Normal strength at 5/5 x4 extr Lymphatics: No axilla or inguinal lymphadenopathy - Studies Medications List Reviewed: Yes Assessment And Plan - Plan NSTEMI: Cardiac did cardiac cath this am. Cardiology placed a stent to distal RCA into RPDA. Continue aspirin and brilinta. Syncope: resolved. Likely due to taking nitroglycerin. Will monitor BP. HLD: statin Hx of CAD: Continue brilinta, aspirin and statin. DVT ppx: SCD Dispo: pending hospital course.
[2024-07-09] MEDS ORDERED: ACETAMINOPHEN 325 MG TABLET PO PRN (21:18)
--- NOTE | 2024-07-09 21:21 | OP ---
Date of Procedure: 07/09/2024 Surgeon: Cheng Pineda Procedure Performed: 1.Left heart catheterization. 2.Selective coronary angiogram. 3.PCI of distal RCA into RPDA with Synergy 2.75 x 16 mm drug-eluting stent. Indication For Procedure: Non-STEMI. Complications: None. Estimated Blood Loss: Less than 50 cc. Access: Right radial, closed by TR band. Sedation Time: 30 minutes with 1 of Versed and 25 of fentanyl. Description Of Procedure: After risks, benefits, and alternatives were explained to patient, patient agreed to proceed with the procedure and signed informed consent. Patient was brought back to the c ath lab, prepped and draped in a sterile fashion. Time-out was performed. Sedation was administered . Next, an ultrasound-guided right radial access was obtained. [place] 4 catheter was advanced to the LV cavity. LVEDP was obtained. Pullback did not show any gradient. The same catheter was used for selective angiogram of the left and right coronary system. The catheter was exchanged for a JR4 candy de. Heparin was administered. ACT was therapeutic. A Runthrough wire passed across the lesion, pre -dilated the lesions with an NC 2.5 mm balloon that was followed by Synergy 2.75 x 16 mm drug-eluting stent that was postdilated with an NC 3.25 mm balloon. Final angiogram showed MATTHIAS-3 flow. Guide w as removed over a J-wire. Sheath was removed and a TR band applied. The patient was moved back to [facility] in stable condition. Findings: 1.Left main normal. 2.LAD: Ostial to proximal 40% to 50% disease. The mid stent is patent and then distal mild LI foll owed by an apical 80% to 90% disease. 3.The LAD gives a large diagonal that is ostially jailed by stent with an 80% disease at the ostium with mild LI. 4.Left circ, mild luminal irregularities. 5.OM1, small diffuse disease. 6.OM2, proximal stent is patent with mild luminal irregularities. 7.RCA is large, dominant, proximal 40% disease. The mid long stent is patent followed by distal RCA into proximal RPDA with 80% disease. Thus, PCI done with Synergy 2.75 x 16 mm drug-eluting stent th at was overlapped with the proximal to mid RPDA stent. 8.RPLV, ostial 80% disease, small artery. Assessment And Plan: 1.Non-STEMI, most likely secondary to distal RCA into RPDA disease, status post PCI with Synergy 2.7 5 x 16 mm drug-eluting stent. 2.Significant distal to apical LAD disease, small artery. No space for intervention here. 3.Mild to moderate to proximal LAD and proximal RCA disease, medical management. Plan: 1.To continue aspirin 81 mg daily for life. 2.Continue Brilinta 90 mg p.o. b.i.d. for 12 months. 3.Continue aggressive medical treatment for CAD. AMARILIS/FIDEL Voice ID: [id number] Report ID: [id number]
[2024-07-10 01:19] VITALS: O2SAT 99
--- NOTE | 2024-07-10 07:05 | ECHO ---
HEIGHT: 5 ft 5 in WEIGHT: 175 lb 0 oz DATE OF STUDY: 07/09/[address]: Linwood Pearson MD 2-DIMENSIONAL: YES M.MODE: YES DOPPLER: YES COLOR FLOW: YES TDS: PORTABLE: YES DEFINITY: BUBBLE STUDY: DIAGNOSIS: NON ST ELEVATION MYOCARDIAL INFARCTION CARDIAC HISTORY: CATHERIZATION: YES SURGERY: NO PROSTHETIC VALVE: NO PACEMAKER: NO MEASUREMENTS (cm) DIASTOLIC (NORMALS) SYSTOLIC (NORMALS) IVSd 1.2 (0.6-1.2) LA Diam 2.0 (1.9-4.0) LVEF 55-60% LVIDd 4.0 (3.5-5.7) LVIDs 2.6 (2.0-3.5) %FS 33% LVPWd 1.3 (0.6-1.2) Ao Diam 2.8 (2.0-3.7) 2 DIMENSIONAL ASSESSMENT: RIGHT ATRIUM: NORMAL LEFT ATRIUM: NORMAL RIGHT VENTRICLE: NORMAL LEFT VENTRICLE: NORMAL TRICUSPID VALVE: NORMAL MITRAL VALVE: NORMAL PULMONIC VALVE: NORMAL AORTIC VALVE: NORMAL PERICARDIAL EFFUSION: NONE AORTIC ROOT: NORMAL LEFT VENTRICULAR WALL MOTION: NORMAL DOPPLER/COLOR FLOW: DIASTOLIC DYSFUNCTION COMMENTS: 1. NORMAL LEFT VENTRICULAR SYSTOLIC FUNCTION, EJECTION FRACTION 55-60%, NORMAL WALL MOTION 2. NORMAL DIASTOLIC FUNCTION TECHNOLOGIST: YE WOLFF
[2024-07-10 07:07] LABS: Absolute Eosinophils 0.8 K/uL (0-0.5); Absolute Monocytes 0.6 K/uL (0.1-1.3); Absolute Neutrophil 3.9 K/uL (1.8-8.0); Basophils % 0.6 % (0-1.3); Eosinophils % 10.3 % (0-4.4); Hematocrit 38.9 % (39.6-49.0); Hemoglobin 12.8 g/dL (13.6-17.9); Lymphocytes % 27.6 % (15.3-44.8); MCH 30.7 pg (27.0-35.0); MCHC 32.9 g/dL (32.0-36.0); MCV 93.3 fL (80-100); MPV 7.8 fL (7.6-11.3); Monocytes % 7.9 % (3.3-12.3); Neutrophils % 53.6 % (41.7-73.7); Platelets 233 thou/uL (152-406); RBC Red Blood Cell Count 4.16 M/uL (4.33-5.43); Red Cell Distribution Width 14.2 % (12.1-15.2)
--- NOTE | 2024-07-10 10:37 | P.PN ---
Subjective Date of Service: 07/10/24 Chief Complaint: Non-STEMI; chest pain with syncope and collapse Subjective: No new changes, No C/O voiced, Tolerating diet, Ambulating, Improving Review of Systems 10-point ROS is otherwise unremarkable Physical Examination - Vital Signs Temperature: 98.0 F Blood Pressure: 127/67 Pulse: 65 Respirations: 20 Pulse Ox (%): 97 - Physical Exam General: Alert, In no apparent distress HEENT: Atraumatic, PERRLA, EOMI Neck: Supple, JVD not distended Respiratory: Clear to auscultation bilaterally, Normal air movement Cardiovascular: Regular rate/rhythm, Normal S1 S2 Gastrointestinal: Normal bowel sounds, No tenderness Musculoskeletal: No tenderness Integumentary: No rashes Neurological: Normal speech, Normal tone, Normal affect Lymphatics: No axilla or inguinal lymphadenopathy - Studies Medications List Reviewed: Yes Assessment And Plan - Current Problems (Diagnosis) (1) Hyperlipidemia Current Visit: Yes Status: Acute Plan: continue lipitor 40 mg daily (2) NSTEMI (non-ST elevated myocardial infarction) Current Visit: Yes Status: Acute Plan: Coronary angiogram done today and PCI of distal RCA into RPDA was done with Synergy FERNY ASA 81 mg daily Continue Brilinta 90 mg po BID (3) Syncope and collapse Current Visit: Yes Status: Acute Plan: most likely vagal secondary to NTG use, TELE did not shows any arrhythmia or heart block Echo shows normal EF. OK to discharge from cardiology.
--- NOTE | 2024-07-10 12:03 | P.DS ---
Admission Date: 07/08/24 Discharge Date: 07/10/24 Disposition: ROUTINE DISCHARGE Discharge Condition: GOOD Reason for Admission: Non-STEMI; chest pain with syncope and collapse Brief History of Present Illness: Patient is a 63-year-old gentleman who was at [place] with his family when he started cursing some chest discomfort. He took a nitroglycerin at that time and he stated that he was feeling somewhat better. He started feeling lightheaded and he passed out. EMS was called and when they saw him his heart rate was 150s with a systolic blood pressure in the 140s. He was still having some chest pain so they gave him another nitroglycerin. His chest pain resolved and his blood pressure came down with a systolic blood pressure in the 110s and his heart rate was down into the 60s. EMS brought him into the emergency room for further evaluation. In the ER he had EKG and troponins. EKG with acute abnormality. Troponins were slightly elevated. Patient was admitted to the hospital for an acute myocardial infarction. Patient be started on antiplatelet therapy and statin therapy along with a heparin drip. Cardiology will be consulted. Patient has a extensive history of coronary artery disease. Patient states he has had 4 prior stents placed. He has been taking his medications religiously. Patient states on Brilinta as well as aspirin and he takes 7 different medications on a daily basis. He was going to follow-up with his local cardiology, but they were out of network so he is going to [place]. He states he recently had an EKG performed in the office that was unremarkable. He has had no other workup done since that time and patient will be admitted to the hospital here for inpatient hospitalization. Hospital Course: Patient is a 63yo female with past medical history of CAD and HLD who presented with chest pain and light headedness. On admission, lab studies showed elevated troponin and abnormal EKG. We admitted pt and make him NPO after midnight. Cardiology did Cardiac cath and placed stent to the distal RCA into the RPDA. We continued brilinta and aspirin. Pt was advised to stop taking plavix at home, but continue brilinta and aspirin for ta least 1 year. The syncope was likely due to nitroglycerin. There was no arrhythmia per telemetry. Cardiology cleared pt for discharge. He denies any chest pain and was in NAD prior to discharge. Vital Signs/Physical Exam: Temp Pulse Resp BP Pulse Ox 98.0 F 65 20 127/67 97 07/10/24 10:37 07/10/24 10:37 07/10/24 10:37 07/10/24 10:37 07/10/24 10:37 Laboratory Data at Discharge: WBC 7.40 thou/uL (4.3-10.9) 07/10/24 06:05 Hgb 12.8 g/dL (13.6-17.9) L 07/10/24 06:05 Hct 38.9 % (39.6-49.0) L 07/10/24 06:05 Plt Count 233 thou/uL (152-406) 07/10/24 06:05 Sodium 139 mEq/L (136-145) 07/10/24 06:05 Potassium 4.0 mEq/L (3.5-5.1) 07/10/24 06:05 BUN 21 mg/dL (7-18) H 07/10/24 06:05 Creatinine 1.24 mg/dL (0.70-1.30) 07/10/24 06:05 Glucose 96 mg/dL (74-106) 07/10/24 06:05 Phosphorus 3.1 mg/dL (2.5-4.9) 07/09/24 05:28 Magnesium 2.1 mg/dL (1.6-2.4) 07/09/24 05:28 Total Bilirubin 0.3 mg/dL (0.2-1.0) 07/09/24 05:28 AST 15 U/L (15-37) 07/09/24 05:28 ALT 33 U/L (16-61) 07/09/24 05:28 Alkaline Phosphatase 41 U/L (45-117) L 07/09/24 05:28 Triglycerides 140 mg/dL (<150) 07/09/24 05:28 Cholesterol 142 mg/dL (<200) 07/09/24 05:28 HDL Cholesterol 26 mg/dL (40-60) L 07/09/24 05:28 Cholesterol/HDL Ratio 5.46 07/09/24 05:28 Home Medications: Fenofibrate [Tricor*] 160 mg PO DAILY 08/10/23 Omeprazole [Prilosec] 40 mg PO ACB PRN 08/10/23 Aspirin [Aspirin EC 81 MG] 81 mg PO DAILY 30 Days #30 tab 08/13/23 Acetaminophen [Tylenol Extra Strength] 500 mg PO PRN PRN 07/10/24 Atorvastatin Calcium 40 mg PO BEDTIME 90 Days #90 tab 07/10/24 Metoprolol Tartrate [Lopressor*] 25 mg PO DAILY 07/10/24 Nitroglycerin 0.4 mg SL PRN PRN 07/10/24 Ticagrelor [Brilinta*] 90 mg PO BID 90 Days #180 tab 07/10/24 lisinopriL [Prinivil*] 10 mg PO DAILY 07/10/24 New Medications: Atorvastatin Calcium 40 mg PO BEDTIME 90 Days #90 tab Ticagrelor [Brilinta*] 90 mg PO BID 90 Days #180 tab Physician Discharge Instructions: Continue ad shakila activity as tolerated. Take brilinta and aspirin for ta least 1 year. Follow up with PCP and Cardiology within 2 - 3 weeks. Diet: AHA Activity: Ad shakila Followup: Cheng Pineda MD [ACTIVE - CAN ADMIT] - 1-2 Weeks NONE,NONE [Primary Care Provider] -
[2024-07-10 12:38] VITALS: BP 119/59; TEMP 97.8
--- NOTE | 2024-07-10 12:45 | EKG ---
Test Date: 2024-07-08 Test Time: 12:30:43 Heating And Ventilating Worker: SAM MEASUREMENT RESULTS: Intervals: Rate: 58 [place]: 148 QRSD: 86 QT: 418 QTc: 410 [place]: P: 35 [place]: 148 QRS: 13 T: 51 INTERPRETIVE STATEMENTS: Sinus bradycardia Otherwise normal ECG Compared to ECG 08/26/2023 01:34:21 Sinus rhythm no longer present T-wave abnormality no longer present Electronically Signed On 07-10-24 12:42:16 CDT by Cehng Pineda
== END 2024-07-10 13:02 | disposition home or self-care (01) | DRG 322 ==
LOC: ER 12:22 → ERHOLD 16:09 → 2ND 16:50
PROVIDERS: ADMIT Hospitalist; ATTEND Hospitalist
PROC: 027034Z Dilation of Coronary Artery, One Artery with Drug-eluting Intraluminal Device, Percutaneous Approach (ICD-10-PCS; principal; 2024-07-09)
PROC: 4A023N7 Measurement of Cardiac Sampling and Pressure, Left Heart, Percutaneous Approach (ICD-10-PCS; 2024-07-09)
PROC: B2111ZZ Fluoroscopy of Multiple Coronary Arteries using Low Osmolar Contrast (ICD-10-PCS; 2024-07-09)
DX: I21.4 Non-ST elevation (NSTEMI) myocardial infarction (principal); I10 Essential (primary) hypertension; E78.00 Pure hypercholesterolemia, unspecified; K21.9 Gastro-esophageal reflux disease without esophagitis; I25.10 Atherosclerotic heart disease of native coronary artery without angina pectoris; I25.2 Old myocardial infarction; R55 Syncope and collapse; T46.3X5A Adverse effect of coronary vasodilators, initial encounter; Z95.1 Presence of aortocoronary bypass graft; Z95.5 Presence of coronary angioplasty implant and graft; Z88.8 Allergy status to other drugs, medicaments and biological substances; Z79.82 Long term (current) use of aspirin; Z79.899 Other long term (current) drug therapy; Z87.891 Personal history of nicotine dependence
CPT/HCPCS: 36415; 71045; 76937; 80048; 80053; 80061; 83735; 83880; 84100; 84484; 85025; 85347; 92928; 93005; 93306; 93458; 93880; 99152; 99153; 99285; C1725; C1893; J0461; J1644; J2001; J2250; J2270; J3010; J7040; Q9967

== ENCOUNTER 2024-09-02 12:29 | Observation (INO) | payer OTHER ==
[2024-09-02] MEDS ORDERED: FAMOTIDINE 20 MG/2 ML VIAL IV ONE (13:13)
[2024-09-02] MEDS ORDERED: NA CHLORIDE 0.9% 500 ML ONE (13:13)
[2024-09-02 13:16] LABS: Absolute Basophils 0.1 K/uL (0-0.5); Absolute Eosinophils 0.6 K/uL (0-0.5); Absolute Lymphocytes (CBC) 1.6 K/uL (0.7-4.9); Absolute Monocytes 0.4 K/uL (0.1-1.3); Absolute Neutrophil 3.9 K/uL (1.8-8.0); Basophils % 0.9 % (0-1.3); Eosinophils % 8.7 % (0-4.4); Hematocrit 37.1 % (39.6-49.0); Hemoglobin 12.5 g/dL (13.6-17.9); Lymphocytes % 24.4 % (15.3-44.8); MCH 31.4 pg (27.0-35.0); MCHC 33.7 g/dL (32.0-36.0); MCV 93.2 fL (80-100); MPV 7.7 fL (7.6-11.3); Monocytes % 5.5 % (3.3-12.3); Neutrophils % 60.5 % (41.7-73.7); Platelets 219 thou/uL (152-406); RBC Red Blood Cell Count 3.98 M/uL (4.33-5.43); Red Cell Distribution Width 13.4 % (12.1-15.2)
[2024-09-02 13:19] LABS: PT Prothrombin Time 11.5 SECONDS (9.4-12.5); Protime INR 1.03
[2024-09-02 13:41] LABS: Specific Gravity 1.008 (1.005-1.030); Urine Bilirubin NEGATIVE (Negative); Urine Blood Negative (Negative); Urine Clarity Clear (Clear); Urine Color Colorless (Yellow); Urine Glucose NEGATIVE (Negative); Urine Ketones NEGATIVE (Negative); Urine Microscopic Reflex YN NO UMIC; Urine Nitrite NEGATIVE (Negative); Urine Protein NEGATIVE (Negative); Urine Urobilinogen Normal (Normal); Urine pH 6.5 (5.0-7.0)
--- NOTE | 2024-09-02 14:02 | RAD REPORT ---
EXAMINATION: ONE VIEW CHEST XR CLINICAL INDICATION: Male, 63 years old.CHEST PAIN TECHNIQUE: 1 View, AP supine, X-ray of the chest was performed. [id number]. COMPARISON: 07/08/2024 FINDINGS: Lungs and pleura: Clear lungs. No effusion. Heart and mediastinum: Normal heart size. Unremarkable mediastinal contours. Osseous structures: No acute abnormality. Tubes/lines: None Other: None. IMPRESSION: No acute intrathoracic abnormality.
--- NOTE | 2024-09-02 14:22 | ER ---
Nurse's Notes [facility] Name: Hiram Schuster Age: 63 yrs Sex: Male : 1960 Arrival Date: 09/02/2024 Time: 12:29 Bed 16 Private MD: Diagnosis: Chest pain, unspecified;Angina pectoris, unspecified;Non ST elevation LA Presentation: 09/02 12:44 Chief complaint: EMS states: toned out for chest pain, 8/10 with diaphoresis. Patient me1 took a nitro prior to EMS arrival and pain resolved. EMS administered ASA 324 mg and started a 22 g IV to R hand. Coronavirus screen: Vaccine status: Patient reports being unvaccinated. Ebola Screen: No symptoms or risks identified at this time. Initial Sepsis Screen: Does the patient meet any 2 criteria? No. Patient's initial sepsis screen is negative. Does the patient have a suspected source of infection? No. Patient's initial sepsis screen is negative. Risk Assessment: Do you want to hurt yourself or someone else? Patient reports no desire to harm self or others. Onset of symptoms was September 02, 2024 at 11:30. 12:44 Method Of Arrival: EMS: [facility] mn1 12:44 Acuity: DESTINEE 3 me1 12:44 Care prior to arrival: Medication(s) given: ASA, 81 mg, x 4, IV initiated. 22 GA, in me1 the right hand, Glucose check: 98. Triage Assessment: 12:44 General: Appears comfortable, well groomed, well developed, well nourished, Behavior is me1 calm, cooperative, appropriate for age, Reports CP while sitting in oriental orthodox, left sided, did not radiate. Took a nitro before EMS arrived and pain resolved. After taking nitro patient became very diaphoretic and dizzy. Denies pain at this time. Pain: Complains of pain in anterior aspect of left upper chest Pain does not radiate. Pain currently is 0 out of 10 on a pain scale. at worst was 8 out of 10 on a pain scale. Quality of pain is described as heavy, sharp, Pain began suddenly, Is continuous. EENT: No signs and/or symptoms were reported regarding the EENT system. Neuro: Level of Consciousness is awake, alert, obeys commands, Oriented to person, place, time, situation, Appropriate for age. Cardiovascular: Patient's skin is warm and dry. Cardiovascular: Reports diaphoresis, Diaphoresis after taking nitro. Respiratory: Airway is patent Respiratory effort is even, unlabored, Respiratory pattern is regular, symmetrical. GI: No signs and/or symptoms were reported involving the gastrointestinal system. : No signs and/or symptoms were reported regarding the genitourinary system. Derm: Skin is intact, is healthy with good turgor, Skin is pink, warm \T\ dry. Musculoskeletal: No signs and/or symptoms reported regarding the musculoskeletal system. Historical: - Allergies: 12:48 menthol; me1 - PMHx: 12:48 Gastroesophageal reflux disease; Hypercholesterolemia; Hypertensive disorder; me1 Myocardial infarction; - PSHx: 12:48 cardiac stents x 4; cardiac stents x5; me1 - Immunization history:: Adult Immunizations up to date. - Infectious Disease History:: Denies. - Social history:: Smoking status: Patient/guardian denies using tobacco, but has a distant history of tobacco abuse. - Family history:: not pertinent. Screenin:59 [facility] ED Fall Risk Assessment (Adult) History of falling in the last 3 months, me1 including since admission No falls in past 3 months (0 pts) Confusion or Disorientation No (0 pts) Intoxicated or Sedated No (0 pts) Impaired Gait No (0 pts) Mobility Assist Device Used No (0 pt) Altered Elimination No (0 pt) Score/Fall Risk Level 0 - 2 = Low Risk. Abuse screen: Denies threats or abuse. Nutritional screening: No deficits noted. Tuberculosis screening: No symptoms or risk factors identified. Assessment: 12:59 General: See triage assessment. . Pain: Complains of pain in anterior aspect of left me1 upper chest. 16:50 General: Transport to floor delayed so patient can eat as his meal tray was delivered me1 here. . Vital Signs: 12:44 BP 123 / 73; Pulse 57; Resp 16; Temp 98.3; Pulse Ox 98% ; Weight 79.38 kg; Height 5 ft. me1 5 in. ; Pain 0/10; 13:00 BP 113 / 66; Pulse 59; Resp 16; Pulse Ox 95% ; me1 14:00 BP 115 / 71; Pulse 58; Resp 16; Pulse Ox 97% ; me1 15:00 BP 119 / 70; Pulse 60; Resp 15; Pulse Ox 97% ; me1 16:00 BP 137 / 70; Pulse 62; Resp 16; Pulse Ox 99% ; me1 17:00 BP 122 / 67; Pulse 78; Resp 16; Pulse Ox 96% ; me1 12:44 Body Mass Index 29.12 (79.38 kg, 165.1 cm) me1 12:44 Pain Scale: Adult [facility] ED Course: 12:42 Patient arrived in ED. me1 12:44 Gege Guadarrama, RN is Primary Nurse. me1 12:44 Arm band placed on Patient placed in an exam room. me1 12:48 Triage completed. me1 12:52 Aaron Oakley MD is Attending Physician. [facility] 12:59 Patient has correct armband on for positive identification. Bed in low position. Call mn1 light in reach. Side rails up X2. Provided Education on: POC. Verbalized understanding. . Client placed on continuous cardiac and pulse oximetry monitoring. NIBP monitoring applied. equipment monitor phototypesetting on. Pulse ox on. NIBP on. 12:59 No provider procedures requiring assistance completed. Maintain EMS IV. Dressing mn1 intact. Good blood return noted. Site clean \T\ dry. Gauge \T\ site: 22g R hand. Flushed with 10 mL NS. Patient maintains SpO2 saturation greater than 95% on room air. 13:01 EKG done, by ED staff, reviewed by Aaron Oakley MD. Initial lab(s) drawn, by mn, sent me1 to lab. 13:12 Lipase Sent. mn1 13:12 CBC with Diff Sent. mn1 13:12 LFT's Sent. mn1 13:12 Magnesium Sent. mn1 13:12 NT PRO-BNP Sent. mn1 13:12 PT-INR Sent. mn1 13:12 Troponin HS Sent. me1 13:35 XRAY Chest (1 view) In Process Unspecified. EDMS 14:21 Otoniel Christian is Hospitalizing Provider. [facility] 14:56 Notified ED physician of a critical lab result(s). troponin 129. 1 16:26 Patient admitted, IV remains in place. mn1 Administered Medications: 13:01 Not Given (given by EMS ptaa): aspirinchewable tablet 324 mg PO once; 81 mg tablets x 4 [facility] 13:16 Drug: NS 0.9% IV 500 ml IV at bolus once; to be given as a bolus over 30 minutes Route: me1 IV; Rate: bolus; Site: right hand; 14:33 Follow up: Response: No adverse reaction; IV Status: Infusion continued; IV Intake: me1 500ml 13:16 Drug: Famotidine IVP 20 mg IVP once; dilute with 10 mL 0.9% NaCl; give over 2 minutes me1 Route: IVP; Site: right hand; 13:46 Follow up: Response: No adverse reaction me1 14:41 Drug: Enoxaparin Sub-Q 1 mg/kg Sub-Q once Route: Sub-Q; Site: right lower abdomen; me1 15:14 Follow up: Response: No adverse reaction me1 Medication: 12:59 VIS not applicable for this client. me1 Intake: 14:33 IV: 500ml; Total: 500ml. me1 Outcome: 14:21 Decision to Hospitalize by Provider. vianca 16:26 Admitted to Med/surg accompanied by tech, via wheelchair, room 214, with chart, Report me1 called to faxed, receipt confirmed with Stella. 16:26 Condition: stable 16:26 Instructed on the need for admit, 17:19 Patient left the ED. me1 Signatures: Dispatcher [employer] Aaron Krishnamurthy MD MD cha Lewis, Lynsay, RN RN 1 Gege Guadarrama RN RN me1
--- NOTE | 2024-09-02 14:22 | EDPHYS ---
Physician Documentation [facility] Name: Hiram Schuster Age: 63 yrs Sex: Male : 1960 Arrival Date: 09/02/2024 Time: 12:29 Bed 16 Private MD: ED Physician Aaron Oakley HPI: 09/02 14:16 This 63 yrs old Male presents to ER via EMS with complaints of Chest Pain. vianca 14:16 The patient or guardian reports chest pain that is located primarily in the anterior vainca chest wall, left. Onset: just prior to arrival, this morning. The pain does not radiate. Associated signs and symptoms: The patient has no apparent associated signs or symptoms. The chest pain is described as a heaviness, causing indigestion. Duration: The patient or guardian reports a single episode, that is now resolved. Modifying factors: The symptoms are alleviated by nothing. the symptoms are aggravated by nothing. Severity of pain: At its worst the pain was moderate in the emergency department the pain has improved markedly. The patient has experienced similar episodes in the past, multiple times. Historical: - Allergies: 12:48 menthol; me1 - PMHx: 12:48 Gastroesophageal reflux disease; Hypercholesterolemia; Hypertensive disorder; me1 Myocardial infarction; - PSHx: 12:48 cardiac stents x 4; cardiac stents x5; me1 - Immunization history:: Adult Immunizations up to date. - Infectious Disease History:: Denies. - Social history:: Smoking status: Patient/guardian denies using tobacco, but has a distant history of tobacco abuse. - Family history:: not pertinent. ROS: 14:16 Constitutional: Negative for fever, chills, and weight loss, Eyes: Negative for injury, vianca pain, redness, and discharge, ENT: Negative for injury, pain, and discharge, Neck: Negative for injury, pain, and swelling, Respiratory: Negative for shortness of breath, cough, wheezing, and pleuritic chest pain, Abdomen/GI: Negative for abdominal pain, nausea, vomiting, diarrhea, and constipation, Back: Negative for injury and pain, : Negative for injury, bleeding, discharge, and swelling, MS/Extremity: Negative for injury and deformity, Skin: Negative for injury, rash, and discoloration, Neuro: Negative for headache, weakness, numbness, tingling, and seizure, Psych: Negative for depression, anxiety, suicide ideation, homicidal ideation, and hallucinations, Allergy/Immunology: Negative for hives, rash, and allergies, Endocrine: Negative for neck swelling, polydipsia, polyuria, polyphagia, and marked weight changes, Hematologic/Lymphatic: Negative for swollen nodes, abnormal bleeding, and unusual bruising, 14:16 Cardiovascular: Positive for chest pain, of the chest, Exam: 14:16 Constitutional: This is a well developed, well nourished patient who is awake, alert, vianca and in no acute distress. Head/Face: Normocephalic, atraumatic. Eyes: Pupils equal round and reactive to light, extra-ocular motions intact. Lids and lashes normal. Conjunctiva and sclera are non-icteric and not injected. Cornea within normal limits. Periorbital areas with no swelling, redness, or edema. ENT: Nares patent. No nasal discharge, no septal abnormalities noted. Tympanic membranes are normal and external auditory canals are clear. Oropharynx with no redness, swelling, or masses, exudates, or evidence of obstruction, uvula midline. Mucous membranes moist. Neck: Trachea midline, no thyromegaly or masses palpated, and no cervical lymphadenopathy. Supple, full range of motion without nuchal rigidity, or vertebral point tenderness. No Meningismus. Chest/axilla: Normal chest wall appearance and motion. Nontender with no deformity. No lesions are appreciated. Cardiovascular: Regular rate and rhythm with a normal S1 and S2. No gallops, murmurs, or rubs. Normal PMI, no JVD. No pulse deficits. Respiratory: Lungs have equal breath sounds bilaterally, clear to auscultation and percussion. No rales, rhonchi or wheezes noted. No increased work of breathing, no retractions or nasal flaring. Abdomen/GI: Soft, non-tender, with normal bowel sounds. No distension or tympany. No guarding or rebound. No evidence of tenderness throughout. Back: No spinal tenderness. No costovertebral tenderness. Full range of motion. Male : Normal genitalia with no discharge or lesions. Skin: Warm, dry with normal turgor. Normal color with no rashes, no lesions, and no evidence of cellulitis. MS/ Extremity: Pulses equal, no cyanosis. Neurovascular intact. Full, normal range of motion. Neuro: Awake and alert, GCS 15, oriented to person, place, time, and situation. Cranial nerves II-XII grossly intact. Motor strength 5/5 in all extremities. Sensory grossly intact. Cerebellar exam normal. Normal gait. Psych: Awake, alert, with orientation to person, place and time. Behavior, mood, and affect are within normal limits. 14:16 ECG was reviewed by the Attending Physician. Vital Signs: 12:44 BP 123 / 73; Pulse 57; Resp 16; Temp 98.3; Pulse Ox 98% ; Weight 79.38 kg; Height 5 ft. me1 5 in. ; Pain 0/10; 13:00 BP 113 / 66; Pulse 59; Resp 16; Pulse Ox 95% ; me1 14:00 BP 115 / 71; Pulse 58; Resp 16; Pulse Ox 97% ; me1 15:00 BP 119 / 70; Pulse 60; Resp 15; Pulse Ox 97% ; me1 16:00 BP 137 / 70; Pulse 62; Resp 16; Pulse Ox 99% ; me1 17:00 BP 122 / 67; Pulse 78; Resp 16; Pulse Ox 96% ; me1 12:44 Body Mass Index 29.12 (79.38 kg, 165.1 cm) me1 12:44 Pain Scale: Adult me1 MDM: 12:52 Medical Screening Exam initiated vianca 14:18 Differential diagnosis: abnormal EKG, acute myocardial infarction, acute pericarditis, vianca anxiety, Cholelithiasis costochondritis, esophagitis, gastritis, hiatal hernia, myocarditis, pancreatitis, peptic ulcer disease, pericarditis, pleurisy, pneumonia, pneumothorax, pulmonary embolus, stable angina, thoracic aortic disection, unstable angina. HEART Score: History: Moderately Suspicious (1), ECG: Non specific repolarization disturbance / LBTB / PM (1), Age: > 45 and < 65 years (1), Risk Factors: > or = 3 Risk factors for atherosclerotic disease (2), [Hypercholesterolemia] [Hypertension] [+ Family HX] [Obesity] Troponin: < or = 1 x Normal Limit (0). The patient was given aspirin in the Emergency Department. MATTHIAS Risk Score: 1 - Three or more CAD risk factors, 1- Known CAD, 1 - ASA use in past 7 days, 1 - Recent [<24hrs] Severe Angina, TOTAL SCORE = 4. Data reviewed: vital signs, nurses notes, lab test result(s), EKG, radiologic studies, plain films. Consideration of Admission/Observation Patient was admitted/placed on observation. Escalation of care including admission/observation considered. I considered the following discharge prescriptions or medication management in the emergency department Medications were administered in the Emergency Department. See MAR. Independent interpretation of the following test(s) in the Emergency Department EKG: See my EKG interpretation above. Test considered but Not performed: Ultrasound no 2 d echo. Care significantly affected by the following chronic conditions: Hypertension, gerd, stents x 5, mi. 09/02 12:54 Order name: Basic Metabolic Panel; Complete Time: 14:59 vianca 09/02 12:54 Order name: CBC with Diff; Complete Time: 14:15 vianca 09/02 12:54 Order name: LFT's; Complete Time: 14:59 vianca 09/02 12:54 Order name: Magnesium; Complete Time: 14:59 vianca 09/02 12:54 Order name: NT PRO-BNP; Complete Time: 14:59 vianca 09/02 12:54 Order name: PT-INR; Complete Time: 14:15 vianca 09/02 12:54 Order name: Troponin HS; Complete Time: 14:59 vianca 09/02 12:54 Order name: Lipase; Complete Time: 14:59 vianca 09/02 12:54 Order name: Urinalysis w/ reflexes; Complete Time: 14:15 vianca 09/02 15:33 Order name: Urinalysis w/ reflexes EDMS 09/02 15:33 Order name: Basic Metabolic Panel EDMS 09/02 15:33 Order name: Basic Metabolic Panel EDMS 09/02 15:33 Order name: CBC with Automated Diff EDMS 09/02 15:33 Order name: CBC with Automated Diff EDMS 09/02 15:33 Order name: Lipid Profile EDMS 09/02 15:33 Order name: Lipid Profile EDMS 09/02 15:33 Order name: Magnesium EDMS 09/02 15:33 Order name: Magnesium EDMS 09/02 15:33 Order name: Phosphorus EDMS 09/02 15:33 Order name: Phosphorus EDMS 09/02 15:33 Order name: Troponin High Sensitivity EDMS 09/02 15:33 Order name: Troponin High Sensitivity EDMS 09/02 15:33 Order name: Troponin High Sensitivity EDMS 09/02 12:54 Order name: XRAY Chest (1 view); Complete Time: 14:[address] [facility] 09/02 12:54 Order name: Cardiac monitoring; Complete Time: 13: [facility] 09/02 12:54 Order name: EKG - Nurse/Tech; Complete Time: 13: [facility] 09/02 12:54 Order name: IV Saline Lock; Complete Time: 13: [facility] 09/02 12:54 Order name: Labs collected and sent; Complete Time: 13: [facility] 09/02 12:54 Order name: O2 Per Protocol; Complete Time: 13: [facility] 09/02 12:54 Order name: O2 Sat Monitoring; Complete Time: 13: [facility] 09/02 13:21 Order name: Labs - recollect needed: recollect all the blood er16/ hemolyzed; Complete eb Time: 13:46 EC:16 Rate is 57 beats/min. Rhythm is regular. QRS [place] is Normal. [place] interval is normal. QT vianca interval is normal. No Q waves. T waves are Normal. No ST changes noted. Clinical impression: Sinus bradycardia and No evidence of ischemia. Interpreted by me. Reviewed by me. Administered Medications: 13:01 Not Given (given by EMS ptaa): aspirinchewable tablet 324 mg PO once; 81 mg tablets x 4 me1 13:16 Drug: NS 0.9% IV 500 ml IV at bolus once; to be given as a bolus over 30 minutes Route: me1 IV; Rate: bolus; Site: right hand; 14:33 Follow up: Response: No adverse reaction; IV Status: Infusion continued; IV Intake: me1 500ml 13:16 Drug: Famotidine IVP 20 mg IVP once; dilute with 10 mL 0.9% NaCl; give over 2 minutes me1 Route: IVP; Site: right hand; 13:46 Follow up: Response: No adverse reaction me1 14:41 Drug: Enoxaparin Sub-Q 1 mg/kg Sub-Q once Route: Sub-Q; Site: right lower abdomen; me1 15:14 Follow up: Response: No adverse reaction me1 Disposition Summary: 09/02/24 14:21 Hospitalization Ordered Notes: Hospitalization Status: Observation vianca Provider: Otoniel Christian cha Location: Telemetry/MedSurg (observation) vianca Condition: Fair vianca Problem: new vianca Symptoms: have improved vianca Bed/Room Type: Standard vianca Room Assignment: 214(09/02/24 16:13) eb Diagnosis - Chest pain, unspecified vianca - Angina pectoris, unspecified vianca - Non ST elevation VA vianca Forms: - Medication Reconciliation Form vianca - SBAR form vianca - Leadership Thank You Letter vianca Signatures: Dispatcher [employer] Aaron Krishnamurthy MD MD cha Botello, Elizabeth eb Lewis, Lynsay, RN RN ll1 Gege Guadarrama RN RN ia1 Corrections: (The following items were deleted from the chart) 16:11 14:21 vianca ll1 16:13 16:11 213 ll1 ll1 16:13 16:13 214 ll1 eb
[2024-09-02] MEDS ORDERED: ENOXAPARIN 80 MG/0.8 ML SQ ONE (14:34)
[2024-09-02 14:51] LABS: ALT/SGPT 33 U/L (16-61); AST/SGOT 16 U/L (15-37); Albumin 3.4 g/dL (3.4-5.0); Alkaline Phosphatase 41 U/L (45-117); Anion Gap 4.5 mEq/L (5.0-15.0); BUN Blood Urea Nitrogen 26 mg/dL (7-18); Bicarbonate 26 mEq/L (21-32); Bilirubin Total 0.4 mg/dL (0.2-1.0); Globulin 3.3 g/dL (2.3-3.5); Glomerular Filtration Rate 77 ml/min (=/>90); Glucose Level 111 mg/dL (74-106); Lipase 46 U/L (13-75); NT PRO-BNP 91 pg/mL (<125); Potassium 4.5 mEq/L (3.5-5.1); Protein, Total 6.7 g/dL (6.4-8.2); Sodium Level 139 mEq/L (136-145)
[2024-09-02 14:55] LABS: Bilirubin Direct < 0.2 mg/dL (0-0.2); Bilirubin Indirect, Calculated 0.2 mg/dL (0.2-0.8)
[2024-09-02] MEDS ORDERED: NITROGLYCERIN 0.4 MG/TAB SL PRN (15:23)
[2024-09-02] MEDS ORDERED: MORPHINE 2 MG/ML SYR IV PRN (15:23)
[2024-09-02] MEDS ORDERED: HEPARIN/D5W 25,000 UNIT/500 ML BAG IV SCH (16:00)
--- NOTE | 2024-09-02 16:41 | P.HP ---
Certification for Inpatient Patient admitted to: Observation With expected LOS: <2 Midnights Patient will require the following post-hospital care: None Practitioner: I am a practitioner with admitting privileges, knowledge of patient current condition, hospital course, and medical plan of care. Services: Services provided to patient in accordance with Admission requirements found in Title 42 Section 412.3 of the Code of Federal Regulations Patient History Date of Service: 09/02/24 Reason for admission: Chest pain r/o DC History of Present Illness: Hiram Schuster is a 63 year old male with past medical history of GERD, hypercholesterolemia, hypertension, DC, CAD s/p 4 stents who presented to the ED with chief complaint of anterior chest pain and diaphoresis during yarsanism this morning. He reports taking a nitroglycerin and then becoming unsteady, dizzy, "out of it". EMS was called and offered another nitroglycerin which he refused due to the way that he felt after his first dose. On evaluation, he reports chest pain has been relieved, no acute distress, Blood pressure soft 99/84, Troponin 129. Of note: last admission was in June when a heart cath required a stent. Initial vitals: BP 123 / 73; Pulse 57; Resp 16; Temp 98.3; Pulse Ox 98% Chest xray reports "No acute intrathoracic abnormality." EKG Rate is 57 beats/min. Rhythm is regular. QRS [place] is Normal. [place] interval is normal. QT interval is normal. No Q waves. T waves are Normal. No ST changes noted. Clinical impression: Sinus bradycardia and No evidence of ischemia. Hiram will be admitted to hospitalist service for further treatment of NSTEMI, Dr. Aldana agreed with admission. Allergies No Known Allergies Allergy (Unverified 08/09/23 18:40) Home Medications: Fenofibrate [Tricor*] 160 mg PO DAILY 08/10/23 Omeprazole [Prilosec] 40 mg PO ACB PRN 08/10/23 Aspirin [Aspirin EC 81 MG] 81 mg PO DAILY 30 Days #30 tab 08/13/23 Acetaminophen [Tylenol Extra Strength] 500 mg PO PRN PRN 07/10/24 Atorvastatin Calcium 40 mg PO BEDTIME #90 tab 07/10/24 Metoprolol Tartrate [Lopressor*] 25 mg PO DAILY 07/10/24 Nitroglycerin 0.4 mg SL PRN PRN 07/10/24 Ticagrelor [Brilinta] 90 mg PO BID 90 Days #180 tab 07/10/24 lisinopriL [Prinivil*] 10 mg PO DAILY 07/10/24 - Past Medical/Surgical History Diabetic: No -: HLD -: GERD -: Hypertension -: Coronary artery disease -: DC -: Hernia Psychosocial/ Personal History: Lives at home with - Family History Father -: Heart disease Brother -: Heart disease - Social History Smoking Status: Never smoker Alcohol use: No CD- Drugs: No Caffeine use: No Review of Systems General: Sweats, Weakness Cardiovascular: Chest Pain Neurological: Other (Dizzy) Physical Examination - Physical Exam General: Alert, In no apparent distress, Oriented x3 HEENT: Atraumatic, Normocephalic, PERRLA Neck: Supple, 2+ carotid pulse no bruit Respiratory: Clear to auscultation bilaterally, Normal air movement Cardiovascular: Normal pulses, Normal S1 S2, Irregular heart rate/rhythm (Sinus bradycardia) Capillary refill: <2 Seconds Gastrointestinal: Normal bowel sounds Musculoskeletal: No clubbing Integumentary: No rashes Neurological: Normal speech, Normal tone - Studies Laboratory Data (last 24 hrs) 09/02/24 09/02/24 09/02/24 14:26 13:08 13:08 WBC 6.50 Hgb 12.5 L Hct 37.1 L Plt Count 219 PT 11.5 INR 1.03 Sodium 139 Potassium 4.5 BUN 26 H Creatinine 1.08 Glucose 111 H Magnesium 2.0 Total Bilirubin 0.4 AST 16 ALT 33 Alkaline Phosphatase 41 L Lipase 46 Assessment and Plan - Plan Assessment and plan NSTEMI CAD s/p 4 stents History of DC - EKG: No obvious ST segment changes - troponin 129, Serial pending - Ordered transthoracic echocardiogram - Chest xray No acute intrathoracic abnormality. - Consult Cardiology - recommended admission - S/P aspirin 324 mg PO x 1 - Start daily baby aspirin and statin - PRN acetaminophen, nitroglycerin, morphine -continuous telemetry -lipid panel pending -NPO at midnight -lovenox 80 mg given in ED, Heparin gtt at midnight Hyperglycemia -Serum glucose 111 -monitor in a.m. labs GERD hypercholesterolemia hypertension -continue home medications DVT ppx heparin gtt full code LOS 24 hour OBS Discharge Plan: Home Plan to discharge in: 24 Hours - Advance Directives Does patient have a Living Will: No Does patient have a Durable POA for Healthcare: No
[2024-09-02] MEDS: NA CHLORIDE 0.9% 1,000 ML IV SCH (17:52)
[2024-09-02] MEDS: ASPIRIN EC 325 MG TABLET PO ONE (17:53)
[2024-09-02 18:07] VITALS: BMI 29.1
[2024-09-02] MEDS: ATORVASTATIN 40 MG TAB PO SCH (20:20)
[2024-09-02] MEDS: HEPARIN/D5W 25,000 UNIT/500 ML BAG IV SCH (23:18)
[2024-09-03 04:41] LABS: Absolute Eosinophils 0.6 K/uL (0-0.5); Absolute Lymphocytes (CBC) 2.8 K/uL (0.7-4.9); Absolute Monocytes 0.5 K/uL (0.1-1.3); Absolute Neutrophil 3.3 K/uL (1.8-8.0); Basophils % 0.7 % (0-1.3); Eosinophils % 8.5 % (0-4.4); Hematocrit 35.5 % (39.6-49.0); Hemoglobin 11.8 g/dL (13.6-17.9); Lymphocytes % 39.4 % (15.3-44.8); MCH 30.8 pg (27.0-35.0); MCHC 33.2 g/dL (32.0-36.0); MCV 92.8 fL (80-100); MPV 8.1 fL (7.6-11.3); Monocytes % 6.3 % (3.3-12.3); Neutrophils % 45.1 % (41.7-73.7); Nucleated Red Blood Cells % 0.1 % (0-0); Platelets 211 thou/uL (152-406); RBC Red Blood Cell Count 3.83 M/uL (4.33-5.43); Red Cell Distribution Width 13.8 % (12.1-15.2)
[2024-09-03 04:52] LABS: Anion Gap 8.8 mEq/L (5.0-15.0); Phosphorus 2.9 mg/dL (2.5-4.9); Potassium 3.8 mEq/L (3.5-5.1)
[2024-09-03] MEDS ORDERED: ATROPINE SULF 1 MG/10 ML SYR IV ONE (08:26)
[2024-09-03] MEDS ORDERED: LIDOCAINE 1% 20 ML MDV ONE (08:26)
[2024-09-03] MEDS ORDERED: HEPARIN 10,000 UNIT/10 ML VIAL IV ONE (08:26)
[2024-09-03] MEDS ORDERED: HEPA 1000U/500MLS 2,000 UNIT/1,000 ML BAG IV ONE (08:26)
[2024-09-03] MEDS ORDERED: HEPARIN 5000 UNIT/ML 1 ML VIAL ONE (08:27)
[2024-09-03] MEDS ORDERED: MIDAZOLAM HCL 2 MG/2 ML INJ ONE (08:32)
[2024-09-03] MEDS ORDERED: FENTANYL CITR 100 MCG/2 ML ONE (08:32)
--- NOTE | 2024-09-03 08:53 | P.CNS ---
Date of Consult: 09/03/24 Chief Complaint: Chest pain r/o [place] History of Present Illness: Patient with PMH of CAD s/p multiple PCIs last done on 06/2024 presented with chest pressure sensation, left sided, took NTG and became hypotensive, diaoharetic, denies any episodes after recent stent except this one, denies any other cardiac symptoms. Allergies No Known Allergies Allergy (Unverified 08/09/23 18:40) Home medications list reviewed: Yes Home Medications: Fenofibrate [Tricor*] 160 mg PO DAILY 08/10/23 Omeprazole [Prilosec] 40 mg PO ACB PRN 08/10/23 Aspirin [Aspirin EC 81 MG] 81 mg PO DAILY 30 Days #30 tab 08/13/23 Acetaminophen [Tylenol Extra Strength] 500 mg PO PRN PRN 07/10/24 Atorvastatin Calcium 40 mg PO BEDTIME #90 tab 07/10/24 Metoprolol Tartrate [Lopressor*] 12.5 mg PO BID 07/10/24 Nitroglycerin 0.4 mg SL PRN PRN 07/10/24 lisinopriL [Prinivil*] 10 mg PO DAILY 07/10/24 Prasugrel HCl 10 mg PO 09/02/24 - Past Medical/Surgical History Diabetic: No -: HLD -: GERD -: Hypertension -: Coronary artery disease -: NM -: Hernia Psychosocial/ Personal History: Lives at home with - Family History Father Medical History: Heart disease Brother Medical History: Heart disease - Social History Smoking Status: Former smoker Alcohol use: No CD- Drugs: No Caffeine use: No Place of Residence: Home Review of Systems 10-point ROS is otherwise unremarkable Physical Examination Temp Pulse Resp BP Pulse Ox 97.9 F 70 16 146/77 H 99 09/03/24 08:00 09/03/24 08:00 09/03/24 08:00 09/03/24 08:00 09/03/24 08:00 General: Alert, In no apparent distress HEENT: Atraumatic, PERRLA, Mucous membr. moist/pink, EOMI, Sclerae nonicteric Neck: Supple, 2+ carotid pulse no bruit, No LAD, Without JVD or thyroid abnormality Respiratory: Clear to auscultation bilaterally, Normal air movement Cardiovascular: Regular rate/rhythm, Normal S1 S2 Gastrointestinal: Normal bowel sounds, No tenderness Musculoskeletal: No tenderness Integumentary: No rashes Neurological: Normal gait, Normal speech, Normal tone, Normal affect Lymphatics: No axilla or inguinal lymphadenopathy Laboratory Data (last 24 hrs) 09/02/24 09/02/24 09/02/24 14:26 13:08 13:08 WBC 6.50 Hgb 12.5 L Hct 37.1 L Plt Count 219 PT 11.5 INR 1.03 Sodium 139 Potassium 4.5 BUN 26 H Creatinine 1.08 Glucose 111 H Magnesium 2.0 Total Bilirubin 0.4 AST 16 ALT 33 Alkaline Phosphatase 41 L Lipase 46 - Problems (1) Chest pain due to coronary artery disease Current Visit: No Status: Acute Plan: Patient with history of complex CAD, known distal LAD disease, jailed diagonal, mid RCA stent and recent PCI of RPDA presented with unstable angina and mild troponin leak coronary angiogram ASA 81 mg daily Effient 10 mg daily lipitor 40 mg daily (2) Hyperlipidemia Current Visit: No Status: Acute Plan: continue lipitor 40 mg daily (3) Syncope and collapse Current Visit: No Status: Acute Plan: most likely secondary to NTG, became hypotensive. continue to monitor on tele.
[2024-09-03 11:47] VITALS: O2SAT 99
[2024-09-03] MEDS ORDERED: POTASSIUM CL SA 10 MEQ TAB PO ONE (12:18)
[2024-09-03] MEDS: POTASSIUM CL SA 10 MEQ TAB PO ONE (12:28)
[2024-09-03] MEDS: ASPIRIN EC 81 MG TAB PO SCH (12:30)
--- NOTE | 2024-09-03 15:37 | P.DS ---
Admission Date: 09/02/24 Discharge Date: 09/03/24 Reason for Admission: Chest pain r/o [place] Brief History of Present Illness: Diagnosis NSTEMI with chest pain d/t CAD CAD s/p 4 stents History of [place] Hyperglycemia GERD hypercholesterolemia hypertension HPI 09/02/2024 Hiram Schuster is a 63 year old male with past medical history of GERD, hypercholesterolemia, hypertension, [place], CAD s/p 4 stents who presented to the ED with chief complaint of anterior chest pain and diaphoresis during [employer]ao[employer] this morning. He reports taking a nitroglycerin and then becoming unsteady, dizzy, "out of it". EMS was called and offered another nitroglycerin which he refused due to the way that he felt after his first dose. On evaluation, he reports chest pain has been relieved, no acute distress, Blood pressure soft 99/84, Troponin 129. Of note: last admission was in June when a heart cath required a stent. Initial vitals: BP 123 / 73; Pulse 57; Resp 16; Temp 98.3; Pulse Ox 98% Chest xray reports "No acute intrathoracic abnormality." EKG Rate is 57 beats/min. Rhythm is regular. QRS [place] is Normal. IN interval is normal. QT interval is normal. No Q waves. T waves are Normal. No ST changes noted. Clinical impression: Sinus bradycardia and No evidence of ischemia. Hiram will be admitted to hospitalist service for further treatment of NSTEMI, Dr. Aldana agreed with admission. Hospital Course: Hiram Schuster is a pleasant 63 year old male with a past medical history significant for ERD, hypercholesterolemia, hypertension, [place], CAD s/p 4 stents who was admitted to the [facility] on 09/02/24 for chest pain, elevated troponin, diaphoresis. Hiram presented to the ED with chest pain and diaphoresis while at [employer]. On evaluation, elevated troponins noted and weight based lovenox was given in the ED. Once admitted, heparin gtt started and cardiology consulted recommending a heart cath. Per cardiology, he will need to follow up with a cardiac surgeon in [place] for a Bypass evaluation. He has remained hemodynamically stable, tolerated the heart cath without complications. He will be discharged to continue aspirin and effient until follow up with the Cardiac surgeon and further plan is established. On 09/03/24, Hiram was seen on morning rounds and deemed medically stable for discharge. Hiram was discharged with instructions to schedule follow-up appointments with cardiac surgeon, Dr. Pineda, and PCP. Hiram was provided prescriptions of Effient and continue asa and lipitor. After discharge, spoke to Hiram on the phone to double check and confirm all instructions were clear. Physical Exam General: Alert and Oriented x3, NAD HEENT: Atraumatic, Normocephalic, PERRLA Neck: Supple, 2+ carotid pulse no bruit Respiratory: Clear to auscultation bilaterally, Normal air movement Cardiovascular: Normal pulses, Normal S1 S2, NSR Capillary refill: <2 Seconds Gastrointestinal: Normal bowel sounds Musculoskeletal: No clubbing Integumentary: No rashes Neurological: Normal speech, Normal tone <Destiney Escalante - Last Filed: 09/03/24 19:57> Admission Date: 09/02/24 Discharge Date: 09/03/24 Hospital Course: Patient seen and examined, plan of care discussed with Ms. Escalante. Plan of care discussed with cardiology Dr. Pineda. Patient is stable for discharge according to Dr. Pineda. Dr. Pineda has also made arrangements for patient to see a cardiothoracic surgeon at [place] to evaluate patient for cardiac bypass. <sinan randhawa - Last Filed: 09/03/24 20:28> Disposition: ROUTINE DISCHARGE Discharge Condition: FAIR Vital Signs/Physical Exam: Temp Pulse Resp BP Pulse Ox 67 F L 71 18 133/67 99 09/03/24 10:45 09/03/24 11:30 09/03/24 11:30 09/03/24 11:30 09/03/24 08:00 Laboratory Data at Discharge: WBC 7.20 thou/uL (4.3-10.9) 09/03/24 03:52 Hgb 11.8 g/dL (13.6-17.9) L 09/03/24 03:52 Hct 35.5 % (39.6-49.0) L 09/03/24 03:52 Plt Count 211 thou/uL (152-406) 09/03/24 03:52 PT 11.5 SECONDS (9.4-12.5) 09/02/24 13:08 INR 1.03 09/02/24 13:08 APTT 55.7 SECONDS (24.3-36.9) H 09/03/24 11:01 Sodium 144 mEq/L (136-145) D 09/03/24 03:52 Potassium 3.8 mEq/L (3.5-5.1) D 09/03/24 03:52 BUN 21 mg/dL (7-18) H 09/03/24 03:52 Creatinine 1.24 mg/dL (0.70-1.30) 09/03/24 03:52 Glucose 108 mg/dL (74-106) H 09/03/24 03:52 Phosphorus 2.9 mg/dL (2.5-4.9) 09/03/24 03:52 Magnesium 2.0 mg/dL (1.6-2.4) 09/03/24 03:52 Total Bilirubin 0.4 mg/dL (0.2-1.0) 09/02/24 14:26 AST 16 U/L (15-37) 09/02/24 14:26 ALT 33 U/L (16-61) 09/02/24 14:26 Alkaline Phosphatase 41 U/L (45-117) L 09/02/24 14:26 Triglycerides 113 mg/dL (<150) 09/03/24 03:52 Cholesterol 128 mg/dL (<200) 09/03/24 03:52 HDL Cholesterol 31 mg/dL (40-60) L 09/03/24 03:52 Cholesterol/HDL Ratio 4.13 09/03/24 03:52 Lipase 46 U/L (13-75) 09/02/24 14:26 <Destiney Escalante - Last Filed: 09/03/24 19:57> Vital Signs/Physical Exam: Temp Pulse Resp BP Pulse Ox 97.6 F 66 16 137/75 95 09/03/24 16:00 09/03/24 16:00 09/03/24 16:00 09/03/24 16:00 09/03/24 16:00 Laboratory Data at Discharge: WBC 7.20 thou/uL (4.3-10.9) 09/03/24 03:52 Hgb 11.8 g/dL (13.6-17.9) L 09/03/24 03:52 Hct 35.5 % (39.6-49.0) L 09/03/24 03:52 Plt Count 211 thou/uL (152-406) 09/03/24 03:52 PT 11.5 SECONDS (9.4-12.5) 09/02/24 13:08 INR 1.03 09/02/24 13:08 APTT 55.7 SECONDS (24.3-36.9) H 09/03/24 11:01 Sodium 144 mEq/L (136-145) D 09/03/24 03:52 Potassium 3.8 mEq/L (3.5-5.1) D 09/03/24 03:52 BUN 21 mg/dL (7-18) H 09/03/24 03:52 Creatinine 1.24 mg/dL (0.70-1.30) 09/03/24 03:52 Glucose 108 mg/dL (74-106) H 09/03/24 03:52 Phosphorus 2.9 mg/dL (2.5-4.9) 09/03/24 03:52 Magnesium 2.0 mg/dL (1.6-2.4) 09/03/24 03:52 Total Bilirubin 0.4 mg/dL (0.2-1.0) 09/02/24 14:26 AST 16 U/L (15-37) 09/02/24 14:26 ALT 33 U/L (16-61) 09/02/24 14:26 Alkaline Phosphatase 41 U/L (45-117) L 09/02/24 14:26 Triglycerides 113 mg/dL (<150) 09/03/24 03:52 Cholesterol 128 mg/dL (<200) 09/03/24 03:52 HDL Cholesterol 31 mg/dL (40-60) L 09/03/24 03:52 Cholesterol/HDL Ratio 4.13 09/03/24 03:52 Lipase 46 U/L (13-75) 09/02/24 14:26 <sinan randhawa - Last Filed: 09/03/24 20:28> Diet: AHA Activity: Non-weight bearing <Destiney Escalante - Last Filed: 09/03/24 19:57> <sinan randhawa - Last Filed: 09/03/24 20:28> Home Medications: Fenofibrate [Tricor*] 160 mg PO DAILY 08/10/23 Omeprazole [Prilosec] 40 mg PO ACB PRN 08/10/23 Aspirin [Aspirin EC 81 MG] 81 mg PO DAILY 30 Days #30 tab 08/13/23 Acetaminophen [Tylenol Extra Strength] 500 mg PO PRN PRN 07/10/24 Atorvastatin Calcium 40 mg PO BEDTIME #90 tab 07/10/24 Metoprolol Tartrate [Lopressor*] 12.5 mg PO BID 07/10/24 Nitroglycerin 0.4 mg SL PRN PRN 07/10/24 lisinopriL [Prinivil*] 10 mg PO DAILY 07/10/24 Prasugrel HCl [Effient] 10 mg PO DAILY 30 Days #30 tab 09/03/24 New Medications: Prasugrel HCl [Effient] 10 mg PO DAILY 30 Days #30 tab Physician Discharge Instructions: Dr. Pineda recommends seeing a cardiac surgeon for coronary artery bypass graft at [place] 1. Please call and schedule a follow-up appointment with your PCP in 3-5 days - Please follow-up with your PCP for medication refills/adjustments 2. Please call and schedule a follow-up appointment with [facility] cardiac surgeon 3. Please call and schedule a follow- up appointment with Dr. Pineda if you are in need of a referral 4. Continue heart healthy diet 5. activity restrictions do not lift >10 pounds 6. Return to the ED if symptoms worsen Continue aspirin daily, until further appointments have been made, hold plavix (clopidogrel) Continue all other medications as prescribed Followup: Cheng Pineda MD [ACTIVE - CAN ADMIT] - NONE,NONE [UNKNOWN] -
[2024-09-03 16:49] VITALS: BP 137/75; TEMP 97.6
--- NOTE | 2024-09-03 23:15 | OP ---
Date of Procedure: 09/03/2024 Surgeon: Cheng Pineda Procedures Performed: 1.Left heart catheterization. 2.Selective coronary angiogram. Indication For Procedure: Non-STEMI. Complications: None. Estimated Blood Loss: Less than 50 cc. Access: Right radial, closed by TR band. Sedation Time: 20 minutes with 1 of Versed and 25 of fentanyl. Description Of Procedure: After risks, benefits, and alternatives were explained to the patient, the patient agreed to proceed with the procedure and signed informed consent. The patient was brought b [facility] to the color laboratory technician, prepped and draped in a sterile fashion. Time-out was performed. Sedation was administered. Next, a [place] 4 catheter was advanced over J-wire to the LV cavity. LVEDP was obtaine d. Pullback did not show any gradient. Same catheter was used for selective angiogram. At the end of procedure, catheter was removed over the J-wire. Sheath was removed. TR band was applied. Hemos tasis achieved. The patient was moved back to recovery in stable condition. Findings: 1.Left main, ostial 50% to 60% disease. 2.LAD, proximal 40% disease. Mid stent, diffuse 40% ISR, then mid mild luminal irregularities follo wed by distal to apical 80% to 90% disease. 3.Diagonal 1, ostial 80%, jailed by stent. 4.Left circ/OM, mild luminal irregularities. 5.RCA, proximal 30% to 40% disease. Mid stent patent followed by distal stent extending into the RP DA is patent. 6.LVEDP 5 mmHg. Assessment/plan: 1.Significant ostial left main disease. 2.Significant jailed diagonal 1. 3.Patent RCA stents with mild proximal RCA disease. 4.The plan will be to consult CT Surgery to evaluate for bypass as an outpatient. OLMOS/FIDEL Voice ID: [id number] Report ID: [id number]
--- NOTE | 2024-09-04 12:57 | EKG ---
Test Date: 2024-09-02 Test Time: 12:53:05 Boiler Setter: MEASUREMENT RESULTS: Intervals: Rate: 57 [place]: 162 QRSD: 86 QT: 398 QTc: 387 [place]: P: 37 [place]: 162 QRS: 25 T: 72 INTERPRETIVE STATEMENTS: Sinus bradycardia Nonspecific T wave abnormality Abnormal ECG Compared to ECG 07/08/2024 12:30:43 T-wave abnormality now present Electronically Signed On 09-04-24 12:51:15 CDT by Cheng Pineda
== END 2024-09-03 17:56 | disposition home or self-care (01) ==
LOC: ER 12:29 → ERHOLD 15:23 → 2ND 16:23
PROVIDERS: ADMIT Internal Medicine; ATTEND Internal Medicine
PROC: 4A023N7 Measurement of Cardiac Sampling and Pressure, Left Heart, Percutaneous Approach (ICD-10-PCS; principal; 2024-09-03)
PROC: B2111ZZ Fluoroscopy of Multiple Coronary Arteries using Low Osmolar Contrast (ICD-10-PCS; 2024-09-03)
PROC: B2151ZZ Fluoroscopy of Left Heart using Low Osmolar Contrast (ICD-10-PCS; 2024-09-03)
DX: I21.4 Non-ST elevation (NSTEMI) myocardial infarction (principal); I25.110 Atherosclerotic heart disease of native coronary artery with unstable angina pectoris; T82.855A Stenosis of coronary artery stent, initial encounter; I10 Essential (primary) hypertension; I95.9 Hypotension, unspecified; R55 Syncope and collapse; I25.2 Old myocardial infarction; R73.9 Hyperglycemia, unspecified; E78.00 Pure hypercholesterolemia, unspecified; K21.9 Gastro-esophageal reflux disease without esophagitis; Z79.82 Long term (current) use of aspirin; Z79.899 Other long term (current) drug therapy; Z87.891 Personal history of nicotine dependence; Z82.49 Family history of ischemic heart disease and other diseases of the circulatory system
CPT/HCPCS: 96361; 93005; 85025 ×2; 80048 ×2; 36415; 83735 ×2; 84100; 85610; 80061; 80076; 85730 ×3; 81003; 84484 ×3; 83690; 83880; 71045; 93458; 76937; 96372; 96374; 99285; C1893; Q9966; J1644; J2001; J2250; J3010; J7040; J7030 ×3; 99152; G0378; J0461